=== PATIENT | male | born 1950 | race African-American/Black ===

== ENCOUNTER 2016-07-20 13:37 | Emergency (ER) | payer MEDICARE, OTHER ==
--- NOTE | 2016-07-20 13:52 | ER Document Report ---
ED Medical Screen (RME) - General Stated Complaint: DIFFICULTY BREATHING Time seen by provider: 13:52 Mode of Arrival: Wheelchair Information source: Patient Notes: 66-year-old male with a history of SD, hypertension, diabetes is complaining of dizziness, low blood pressure that he took at home, and chest pressure that started at 10 AM this morning. TRAVEL OUTSIDE OF THE [place] IN LAST 30 DAYS: No - Related Data Allergies/Adverse Reactions: No Known Allergies Allergy (Verified 07/20/16 13:53) Past Medical History - Past Medical History Cardiac Medical History: Reports: Hx Congestive Heart Failure, Hx Heart Attack, Hx Hypercholesterolemia, Hx Hypertension Pulmonary Medical History: Reports: Hx COPD Endocrine Medical History: Reports: Hx Diabetes Mellitus Type 2 Renal/ Medical History: Reports: Hx Kidney Stones, Hx Renal Insufficiency Psychiatric Medical History: Reports: Hx Depression Past Surgical History: Reports: Hx Cholecystectomy, Hx Tonsillectomy - Immunizations Hx Diphtheria, Pertussis, Tetanus Vaccination: Yes Physical Exam - Vital signs Vitals: Temp Pulse Resp BP Pulse Ox 98.1 F 82 16 142/85 H 94 07/20/16 13:43 07/20/16 13:43 07/20/16 13:43 07/20/16 13:43 07/20/16 13:43 Course - Vital Signs Vital signs: Temp Pulse Resp BP Pulse Ox 98.1 F 82 16 142/85 H 94 07/20/16 13:43 07/20/16 13:43 07/20/16 13:43 07/20/16 13:43 07/20/16 13:43
[2016-07-20] MEDS ORDERED: ASPIRIN 81 MG TABLET, CHEWABLE PO ONE (13:54)
[2016-07-20] MEDS ORDERED: ASPIRIN 81 MG TABLET, CHEWABLE ONE (13:56)
[2016-07-20 14:52] LABS: ABSOLUTE EOSINOPHILS # (AUTO) 0.2 10^3/uL (0.0-0.6); ABSOLUTE LYMPHOCYTES (AUTO) 1.6 10^3/uL (0.5-4.7); ABSOLUTE MONOCYTES (AUTO) 0.3 10^3/uL (0.1-1.4); BASOPHILS % (AUTO) 0.4 % (0-2); EOSINOPHILS % (AUTO) 4.2 % (0-6); HEMATOCRIT 45.4 % (37.9-51.0); HEMOGLOBIN 14.3 g/dL (13.5-17.0); HGB HCT DIFFERENCE -2.5; LYMPHOCYTES % (AUTO) 31.6 % (13-45); MEAN CORPUSCULAR HEMOGLOBIN 30.6 pg (27.0-33.4); MEAN CORPUSCULAR HGB CONC 31.6 g/dL (32.0-36.0); MEAN CORPUSCULAR VOLUME 97 fl (80-97); MONOCYTES % (AUTO) 5.3 % (3-13); RED BLOOD COUNT 4.67 10^6/uL (4.35-5.55); RED CELL DISTRIBUTION WIDTH 14.5 % (11.5-14.0); SEGMENTED NEUTROPHILS % (AUTO) 58.5 % (42-78); WHITE BLOOD COUNT 5.1 10^3/uL (4.0-10.5)
[2016-07-20 15:05] LABS: ALANINE AMINOTRANSFERASE 40 U/L (21-72); ALBUMIN 4.2 g/dL (3.5-5.0); ALKALINE PHOSPHATASE 76 U/L (38-126); ANION GAP 12 (5-19); ASPARTATE AMINO TRANSFERASE 38 U/L (17-59); BILIRUBIN,TOTAL 0.4 mg/dL (0.2-1.3); BLOOD UREA NITROGEN 21 mg/dL (7-20); CALCIUM 9.4 mg/dL (8.4-10.2); CARBON DIOXIDE 28 mmol/L (22-30); CHLORIDE 105 mmol/L (98-107); CREATINE KINASE 151 U/L (55-170); CREATININE RESULT 1.81 mg/dL (0.52-1.25); GLUCOSE 125 mg/dL (75-110); POTASSIUM 4.4 mmol/L (3.6-5.0); SODIUM 145.2 mmol/L (137-145); TOTAL PROTEIN 6.9 g/dL (6.3-8.2)
--- NOTE | 2016-07-20 15:07 | ER Document Report ---
ED General - General Chief Complaint: Chest Pain Stated Complaint: DIFFICULTY BREATHING Time seen by provider: 14:15 Mode of Arrival: Wheelchair Information source: Patient, [facility] Records Notes: This 66-year-old male patient comes over from complaining of onset 10 AM this morning while just sitting around getting ready to eat when he had chest pressure, shortness of breath, and felt dizzy. He states he checked his blood pressure and it was 100 systolic. At this time while I speak with him, his pulse is 78, his room air pulse ox is 95%, his blood pressure is 142/85. He is not tachypneic. He does have a history congestive heart failure with an EF of 20%, prior NC, diabetes, hypertension, chronic renal insufficiency and COPD. This is complicated by depression and morbid obesity. TRAVEL OUTSIDE OF THE [place] IN LAST 30 DAYS: No - Related Data Allergies/Adverse Reactions: No Known Allergies Allergy (Verified 07/20/16 13:53) Past Medical History - General Information source: Patient, [facility] Records - Social History Smoking Status: Never Smoker Cigarette use (# per day): No Chew tobacco use (# tins/day): No Smoking Education Provided: No Frequency of alcohol use: None Drug Abuse: None Occupation: retired Lives with: Alone Family History: Reviewed & Not Pertinent Patient has suicidal ideation: No Patient has homicidal ideation: No - Past Medical History Cardiac Medical History: Reports: Hx Congestive Heart Failure, Hx Heart Attack, Hx Hypercholesterolemia, Hx Hypertension Pulmonary Medical History: Reports: Hx COPD EENT Medical History: Reports: None Neurological Medical History: Reports: None Endocrine Medical History: Reports: Hx Diabetes Mellitus Type 2 Renal/ Medical History: Reports: Hx Kidney Stones, Hx Renal Insufficiency GI Medical History: Reports: Hx Gastroesophageal Reflux Disease Musculoskeltal Medical History: Reports None Skin Medical History: Reports None Psychiatric Medical History: Reports: Hx Depression Past Surgical History: Reports: Hx Abdominal Surgery - Ernestina fundoplication, Hx Cholecystectomy, Hx Tonsillectomy - Immunizations Hx Diphtheria, Pertussis, Tetanus Vaccination: Yes Hx Pneumococcal Vaccination: 06/30/12 Review of Systems - Review of Systems Constitutional: No symptoms reported EENT: No symptoms reported Cardiovascular: See HPI Respiratory: See HPI Gastrointestinal: No symptoms reported Genitourinary: No symptoms reported Musculoskeletal: No symptoms reported Skin: No symptoms reported Hematologic/Lymphatic: No symptoms reported Neurological/Psychological: No symptoms reported Physical Exam - Vital signs Vitals: Temp Pulse Resp BP Pulse Ox 98.1 F 82 16 142/85 H 94 07/20/16 13:43 07/20/16 13:43 07/20/16 13:43 07/20/16 13:43 07/20/16 13:43 Interpretation: Normal - General General appearance: Appears well, Alert In distress: None - HEENT Head: Normocephalic, Atraumatic Eyes: Normal Pupils: PERRL Pharynx: Normal Neck: Normal - Respiratory Respiratory status: No respiratory distress Breath sounds: Normal - Cardiovascular Rhythm: Regular Heart sounds: Normal auscultation Murmur: No - Abdominal Inspection: Morbidly Obese Bowel sounds: Normal Tenderness: Nontender - Back Back: Normal - Extremities General upper extremity: Normal inspection General lower extremity: Normal inspection. No: Edema - Neurological Neuro grossly intact: Yes - Psychological Associated symptoms: Normal affect, Normal mood - Skin Skin Temperature: Warm Skin Moisture: Dry Skin Color: Normal Course - Re-evaluation Re-evalutation: 07/20/16 16:06 The patient continues to feel well and is in no distress. His pulse ox remains in the 95-96% range on room air and he is not tachypneic. His pulse remains in the mid 70s. His blood pressure running 145/84. His BNP is only 98, his chest x-ray shows no heart failure or infiltrates. His EKG shows no acute changes. His troponin is undetectable. His chemistries and renal function are at his baseline, his CBC does not show suggestion of infection or anemia. I spoke with the patient at this point have no explanation for the symptoms and blood pressure findings he reported at home. He is cautioned to just take it easy and see how things go. He is to return immediately if his symptoms return. - Vital Signs Vital signs: Temp Pulse Resp BP Pulse Ox 98.1 F 82 22 H 136/79 H 94 07/20/16 13:43 07/20/16 13:43 07/20/16 15:31 07/20/16 15:31 07/20/16 15:31 - Laboratory Result Diagrams: 07/20/16 14:16 07/20/16 14:16 Laboratory results interpreted by me: 07/20/16 07/20/16 14:16 14:16 MCHC 31.6 L RDW 14.5 H Sodium 145.2 H BUN 21 H Creatinine 1.81 H Est GFR ( Amer) 45 L Est GFR (Non-Af Amer) 38 L Glucose 125 H - Diagnostic Test Radiology reviewed: Image reviewed, Reports reviewed - CXR--NAD - EKG Interpretation by Me EKG shows normal: Sinus rhythm, [place], Intervals, ST-T Waves. abnormal: QRS Complexes - Old inferior wall NC Rate: Normal - 82 Rhythm: PVC's [place]/QRS: IVCD Heart block present: 1st Degree When compared to previous EKG there are: No significant change Discharge - Discharge Clinical Impression: Chest tightness or pressure, Shortness of breath, Dizziness Condition: Stable Disposition: HOME, SELF-CARE Additional Instructions: Your vital signs, chest x-ray, EKG, and a blood work did not show any suggestion of infection, heart attack, or heart failure. There is no explanation found for the symptoms she experienced earlier this morning. You should continue to rest over the next few days. Continue her regular medications. Follow-up with your doctor this week for recheck. RETURN TO THE EMERGENCY ROOM IF ANY NEW OR WORSENING SYMPTOMS. Referrals: CALVIN PEDRAZA MD [Primary Care Provider] - Follow up as needed
[2016-07-20 15:17] LABS: CREATINE KINASE MB 1.48 ng/mL (<4.55)
[2016-07-20 15:18] LABS: TROPONIN I < 0.012 ng/mL
[2016-07-20 16:26] VITALS: BP 142/88
--- NOTE | 2016-07-20 16:38 | EKG REPORT ---
SEVERITY:- ABNORMAL ECG - SINUS RHYTHM MULTIPLE VENTRICULAR PREMATURE COMPLEXES FIRST DEGREE AV BLOCK NONSPECIFIC IVCD WITH LAD PROBABLE INFERIOR INFARCT, OLD CONSIDER ANTEROSEPTAL INFARCT : Confirmed by: Gary Pearson MD 20-Jul-2016 16:37:41
== END 2016-07-20 16:26 | disposition home or self-care (01) ==
LOC: ER 13:37
DX: R07.9 Chest pain, unspecified (principal); R06.02 Shortness of breath; R42 Dizziness and giddiness; I50.9 Heart failure, unspecified; E78.00 Pure hypercholesterolemia, unspecified; I10 Essential (primary) hypertension; J44.9 Chronic obstructive pulmonary disease, unspecified; E11.9 Type 2 diabetes mellitus without complications; K21.9 Gastro-esophageal reflux disease without esophagitis; Z87.442 Personal history of urinary calculi; Z90.49 Acquired absence of other specified parts of digestive tract; I25.2 Old myocardial infarction
CPT/HCPCS: 93005; 99285; 36415; 82553; 82550; 85025; 80053; 84484; 83880; 71010; 93010; A9270

== ENCOUNTER 2016-09-03 06:47 | Emergency (ER) | payer MEDICARE, OTHER ==
--- NOTE | 2016-09-03 07:04 | ER Document Report ---
ED General - General Mode of Arrival: Medic Information source: Patient TRAVEL OUTSIDE OF THE [place] IN LAST 30 DAYS: No - HPI Onset: This morning Onset/Duration: Sudden Quality of pain: No pain Associated symptoms: Other - see narrative <MARY STERLING - Last Filed: 09/03/16 07:11> <ADDI SUAREZ - Last Filed: 09/03/16 11:34> - General Stated Complaint: DIFFICULTY BREATHING Notes: Patient is a 66 year old male that presents to the emergency department today with complaints of generalized weakness, near-syncope, dizziness, and shortness of breath which began this morning upon wakening. Patient states when he went to bed last night he felt normal and his symptoms began this morning. Patient denies any chest pain. (MARY STERLING) - Related Data Allergies/Adverse Reactions: No Known Allergies Allergy (Verified 07/20/16 13:53) Past Medical History - General Information source: Patient, [facility] Records - Social History Smoking Status: Former Smoker Cigarette use (# per day): No Frequency of alcohol use: None Drug Abuse: None Lives with: Family Family History: Reviewed & Not Pertinent - Past Medical History Cardiac Medical History: Reports: Hx Congestive Heart Failure, Hx Heart Attack, Hx Hypercholesterolemia, Hx Hypertension Pulmonary Medical History: Reports: Hx COPD Endocrine Medical History: Reports: Hx Diabetes Mellitus Type 2 - IDDM Renal/ Medical History: Reports: Hx Kidney Stones, Hx Renal Insufficiency GI Medical History: Reports: Hx Gastroesophageal Reflux Disease Psychiatric Medical History: Reports: Hx Depression Past Surgical History: Reports: Hx Abdominal Surgery - Ernestina fundoplication, Hx Cholecystectomy, Hx Tonsillectomy - Immunizations Hx Diphtheria, Pertussis, Tetanus Vaccination: Yes Hx Pneumococcal Vaccination: 06/30/12 <MARY STERLING - Last Filed: 09/03/16 07:11> Review of Systems - Review of Systems Constitutional: See HPI, Weakness EENT: No symptoms reported Cardiovascular: See HPI, Syncope - near syncope, Dizziness Respiratory: See HPI, Short of breath Gastrointestinal: No symptoms reported Genitourinary: No symptoms reported Male Genitourinary: No symptoms reported Musculoskeletal: No symptoms reported Skin: No symptoms reported Hematologic/Lymphatic: No symptoms reported Neurological/Psychological: No symptoms reported -: Yes All other systems reviewed and negative <MARY STERLING - Last Filed: 09/03/16 07:11> Physical Exam - Vital signs Interpretation: Normal, Other - 98% on room air - General General appearance: Appears well, Alert In distress: None - HEENT Head: Normocephalic, Atraumatic Eyes: Normal Conjunctiva: Normal Extraocular movements intact: Yes - Respiratory Respiratory status: No respiratory distress Chest status: Nontender Breath sounds: Normal - Cardiovascular Rhythm: Regular Heart sounds: Normal auscultation Murmur: No - Abdominal Inspection: Normal Distension: No distension Bowel sounds: Normal - Extremities General upper extremity: Normal inspection, Normal ROM. No: Edema General lower extremity: Edema - trace edema bilaterally - Neurological Neuro grossly intact: Yes Cognition: Normal Speech: Normal - Psychological Associated symptoms: Normal affect, Normal mood - Skin Skin Temperature: Warm Skin Moisture: Dry Skin Color: Normal <MARY STERLING - Last Filed: 09/03/16 07:11> Course <MARY STERLING - Last Filed: 09/03/16 07:11> - Laboratory Result Diagrams: 09/03/16 07:25 09/03/16 07:25 - EKG Interpretation by Fl EKG shows normal: Sinus rhythm, [place], Intervals, QRS Complexes, ST-T Waves Rate: Normal - 65 Rhythm: NSR, PVC's [place]/QRS: IVCD Heart block present: 1st Degree <ADDI SUAREZ - Last Filed: 09/03/16 11:34> - Re-evaluation Re-evalutation: 09/03/16 11:27 The patient was seen here on 07/20/2016 complaining of shortness of breath, chest tightness or pressure, and dizziness. Workup at that time was essentially negative and he was discharged home to follow-up with his primary care provider. He states that no significant event occurred in the interim between that visit and today. Today he complains of weakness, dizziness and shortness of breath and again has a negative workup. (ADDI SUAREZ) - Vital Signs Vital signs: Temp Pulse Resp BP Pulse Ox 14 125/87 H 97 09/03/16 08:01 09/03/16 08:01 09/03/16 08:01 - Laboratory Laboratory results interpreted by ut: 09/03/16 09/03/16 07:25 07:25 RDW 14.3 H Creatinine 1.95 H Est GFR ( Amer) 42 L Est GFR (Non-Af Amer) 34 L Discharge <MARY STERLING - Last Filed: 09/03/16 07:11> <ADDI SUAREZ - Last Filed: 09/03/16 11:34> - Discharge Clinical Impression: Weakness, Dizziness Dyspnea Qualifiers: Dyspnea type: unspecified Qualified Code(s): R06.00 - Dyspnea, unspecified Condition: Stable Disposition: HOME, SELF-CARE Additional Instructions: There were no new or worrisome findings discovered on your lab work, physical examination, chest x-ray, and EKG today. There is no clear explanation for your symptoms. You should continue your regular medications. Follow-up with Dr. Gaines. RETURN TO THE EMERGENCY ROOM IF ANY NEW OR WORSENING SYMPTOMS. Referrals: CLAVIN GAINES MD [Primary Care Provider] - Follow up in 3-5 days Scribe Attestation: 09/03/16 11:33 I personally performed the services described in the documentation, reviewed and edited the documentation which was dictated to the scribe in my presence, and it accurately records my words and actions. (ADDI SUAREZ) Scribe Documentation - Scribe Written by Kt:: Kt Jacobs, 09/03/2016 0711 acting as scribe for :: Dione <MARY STERLING - Last Filed: 09/03/16 07:11>
[2016-09-03 07:41] LABS: ABSOLUTE EOSINOPHILS # (AUTO) 0.1 10^3/uL (0.0-0.6); ABSOLUTE LYMPHOCYTES (AUTO) 1.1 10^3/uL (0.5-4.7); ABSOLUTE MONOCYTES (AUTO) 0.4 10^3/uL (0.1-1.4); ABSOLUTE NEUT (AUTO) 5.3 10^3/uL (1.7-8.2); BASOPHILS % (AUTO) 0.1 % (0-2); EOSINOPHILS % (AUTO) 2.1 % (0-6); HEMATOCRIT 44.4 % (37.9-51.0); HEMOGLOBIN 14.7 g/dL (13.5-17.0); HGB HCT DIFFERENCE -0.3; LYMPHOCYTES % (AUTO) 15.6 % (13-45); MEAN CORPUSCULAR HEMOGLOBIN 31.8 pg (27.0-33.4); MEAN CORPUSCULAR HGB CONC 33.2 g/dL (32.0-36.0); MEAN CORPUSCULAR VOLUME 96 fl (80-97); MONOCYTES % (AUTO) 6.1 % (3-13); RED BLOOD COUNT 4.64 10^6/uL (4.35-5.55); RED CELL DISTRIBUTION WIDTH 14.3 % (11.5-14.0); SEGMENTED NEUTROPHILS % (AUTO) 76.1 % (42-78); WHITE BLOOD COUNT 6.9 10^3/uL (4.0-10.5)
[2016-09-03 08:03] LABS: ALANINE AMINOTRANSFERASE 36 U/L (21-72); ALBUMIN 4.1 g/dL (3.5-5.0); ALKALINE PHOSPHATASE 74 U/L (38-126); ANION GAP 14 (5-19); ASPARTATE AMINO TRANSFERASE 37 U/L (17-59); BILIRUBIN,TOTAL 0.3 mg/dL (0.2-1.3); BLOOD UREA NITROGEN 20 mg/dL (7-20); CALCIUM 9.5 mg/dL (8.4-10.2); CARBON DIOXIDE 29 mmol/L (22-30); CHLORIDE 99 mmol/L (98-107); CREATINE KINASE 168 U/L (55-170); CREATININE RESULT 1.95 mg/dL (0.52-1.25); GLUCOSE 104 mg/dL (75-110); POTASSIUM 4.3 mmol/L (3.6-5.0); TOTAL PROTEIN 7.1 g/dL (6.3-8.2)
[2016-09-03 08:15] LABS: CREATINE KINASE MB 1.71 ng/mL (<4.55)
[2016-09-03 08:17] LABS: TROPONIN I < 0.012 ng/mL
[2016-09-03 11:41] VITALS: BP 141/89
--- NOTE | 2016-09-04 09:34 | EKG REPORT ---
SEVERITY:- ABNORMAL ECG - SINUS RHYTHM VENTRICULAR TRIGEMINY FIRST DEGREE AV BLOCK NONSPECIFIC INTRAVENTRICULAR CONDUCTION DELAY : Confirmed by: Elizabeth Davis 04-Sep-2016 09:34:06
== END 2016-09-03 11:43 | disposition home or self-care (01) ==
LOC: ER 06:47
DX: J44.9 Chronic obstructive pulmonary disease, unspecified (principal); R06.02 Shortness of breath; R55 Syncope and collapse; R53.1 Weakness; R60.0 Localized edema; I25.2 Old myocardial infarction; I10 Essential (primary) hypertension; E11.9 Type 2 diabetes mellitus without complications; Z87.891 Personal history of nicotine dependence; I49.3 Ventricular premature depolarization; I44.0 Atrioventricular block, first degree
CPT/HCPCS: 36415; 71010; 80053; 82550; 82553; 82962; 84484; 85025; 93005; 93010; 99285

== ENCOUNTER → 2016-12-06 | Outpatient (CLI) | payer MEDICARE, OTHER ==
[2016-12-06 14:47] LABS: HEMATOCRIT 44.5 % (37.9-51.0); HEMOGLOBIN 14.5 g/dL (13.5-17.0); MEAN CORPUSCULAR HEMOGLOBIN 31.7 pg (27.0-33.4); MEAN CORPUSCULAR HGB CONC 32.6 g/dL (32.0-36.0); MEAN CORPUSCULAR VOLUME 97 fl (80-97); RED BLOOD COUNT 4.59 10^6/uL (4.35-5.55); RED CELL DISTRIBUTION WIDTH 14.8 % (11.5-14.0)
[2016-12-06 15:39] LABS: ANION GAP 13 (5-19); BLOOD UREA NITROGEN 20 mg/dL (7-20); CALCIUM 9.1 mg/dL (8.4-10.2); CARBON DIOXIDE 27 mmol/L (22-30); CHLORIDE 104 mmol/L (98-107); CREATININE RESULT 1.82 mg/dL (0.52-1.25); GLUCOSE 97 mg/dL (75-110); POTASSIUM 4.3 mmol/L (3.6-5.0); SODIUM 144.2 mmol/L (137-145)
== END ==
LOC: OD 14:20
PROVIDERS: ATTEND Internal Medicine Nephrology
DX: E11.22 Type 2 diabetes mellitus with diabetic chronic kidney disease (principal); I12.9 Hypertensive chronic kidney disease with stage 1 through stage 4 chronic kidney disease, or unspecified chronic kidney disease; N18.3 Chronic kidney disease, stage 3 (moderate); E87.5 Hyperkalemia
CPT/HCPCS: 36415; 80048; 85027

== ENCOUNTER 2017-01-02 21:18 | Emergency (ER) | payer MEDICARE, OTHER ==
[2017-01-02] MEDS ORDERED: ASPIRIN 81 MG TABLET, CHEWABLE PO ONE (21:41)
[2017-01-02 23:00] LABS: ABSOLUTE BASOPHILS # (AUTO) 0.1 10^3/uL (0.0-0.2); ABSOLUTE EOSINOPHILS # (AUTO) 0.4 10^3/uL (0.0-0.6); ABSOLUTE LYMPHOCYTES (AUTO) 2.1 10^3/uL (0.5-4.7); ABSOLUTE MONOCYTES (AUTO) 0.5 10^3/uL (0.1-1.4); ABSOLUTE NEUT (AUTO) 3.4 10^3/uL (1.7-8.2); BASOPHILS % (AUTO) 0.9 % (0-2); HEMATOCRIT 44.9 % (37.9-51.0); HEMOGLOBIN 14.3 g/dL (13.5-17.0); LYMPHOCYTES % (AUTO) 33.4 % (13-45); MEAN CORPUSCULAR HEMOGLOBIN 31.3 pg (27.0-33.4); MEAN CORPUSCULAR HGB CONC 31.9 g/dL (32.0-36.0); MEAN CORPUSCULAR VOLUME 98 fl (80-97); MONOCYTES % (AUTO) 7.3 % (3-13); RED BLOOD COUNT 4.57 10^6/uL (4.35-5.55); RED CELL DISTRIBUTION WIDTH 14.5 % (11.5-14.0); SEGMENTED NEUTROPHILS % (AUTO) 52.4 % (42-78); WHITE BLOOD COUNT 6.4 10^3/uL (4.0-10.5)
--- NOTE | 2017-01-02 23:18 | RADIOLOGY REPORT (SQ) ---
EXAM DESCRIPTION: CHEST SINGLE VIEW COMPLETED DATE/TIME: 01/02/2017 11:09 pm REASON FOR STUDY: chest pain COMPARISON: 07/01/2015 EXAM PARAMETERS: NUMBER OF VIEWS: One view. TECHNIQUE: Single frontal radiographic view of the chest acquired. RADIATION DOSE: NA LIMITATIONS: None. FINDINGS: LUNGS AND PLEURA: No opacities, masses or pneumothorax. No pleural effusion. MEDIASTINUM AND HILAR STRUCTURES: No masses. Contour normal. HEART AND VASCULAR STRUCTURES: Heart normal in size. Normal vasculature. BONES: No acute findings. HARDWARE: None in the chest. OTHER: No other significant finding. IMPRESSION: NO ACUTE RADIOGRAPHIC FINDING IN THE CHEST. TECHNICAL DOCUMENTATION: JOB ID: [id number]
[2017-01-02 23:23] LABS: CREATINE KINASE MB 1.69 ng/mL (<4.55); TROPONIN I 0.013 ng/mL
[2017-01-02 23:32] LABS: ALANINE AMINOTRANSFERASE 41 U/L (21-72); ALBUMIN 3.9 g/dL (3.5-5.0); ALKALINE PHOSPHATASE 81 U/L (38-126); ANION GAP 11 (5-19); ASPARTATE AMINO TRANSFERASE 34 U/L (17-59); BILIRUBIN,DIRECT 0.3 mg/dL (0.0-0.4); BILIRUBIN,TOTAL 0.4 mg/dL (0.2-1.3); BLOOD UREA NITROGEN 21 mg/dL (7-20); CARBON DIOXIDE 29 mmol/L (22-30); CHLORIDE 103 mmol/L (98-107); CREATINE KINASE 142 U/L (55-170); CREATININE RESULT 1.94 mg/dL (0.52-1.25); GLUCOSE 93 mg/dL (75-110); POTASSIUM 4.4 mmol/L (3.6-5.0); SODIUM 142.7 mmol/L (137-145); TOTAL PROTEIN 7.2 g/dL (6.3-8.2)
--- NOTE | 2017-01-03 00:29 | ER Document Report ---
ED General - General Chief Complaint: Chest Pain Stated Complaint: CHEST PAIN Time Seen by Provider: 01/03/17 00:25 Notes: Patient is a 66-year-old male who presents with complaint of episode of chest pain occurred while he was coughing. Says a pressure-like sensation that started in his chest while he was coughing. He says that he sucked on a piece of hard candy to help control the cough. When she cough went away his chest pain improved. He does not have a history of cardiac stents but says he did have a mild MT in the past. He does have history of congestive heart failure and is followed by his optimization consultant, Dr. Arreola, in [place], [place]. He says he did have a normal cardiac cath back in May. Last stress test was 2 years ago. He has no other complaints at this time. He is currently chest pain-free. TRAVEL OUTSIDE OF THE [place] IN LAST 30 DAYS: No - Related Data Allergies/Adverse Reactions: No Known Allergies Allergy (Verified 07/20/16 13:53) Past Medical History - Social History Smoking Status: Never Smoker Frequency of alcohol use: None Drug Abuse: None Family History: Reviewed & Not Pertinent Patient has suicidal ideation: No Patient has homicidal ideation: No - Past Medical History Cardiac Medical History: Reports: Hx Congestive Heart Failure, Hx Heart Attack, Hx Hypercholesterolemia, Hx Hypertension Pulmonary Medical History: Reports: Hx COPD Endocrine Medical History: Reports: Hx Diabetes Mellitus Type 2 - IDDM Renal/ Medical History: Reports: Hx Kidney Stones, Hx Renal Insufficiency. Denies: Hx Peritoneal Dialysis GI Medical History: Reports: Hx Gastroesophageal Reflux Disease Psychiatric Medical History: Reports: Hx Depression Past Surgical History: Reports: Hx Abdominal Surgery - Ernestina fundoplication, Hx Cholecystectomy, Hx Tonsillectomy - Immunizations Hx Diphtheria, Pertussis, Tetanus Vaccination: Yes Hx Pneumococcal Vaccination: 06/30/12 Review of Systems - Review of Systems Notes: My Normal Review Basic REVIEW OF SYSTEMS: CONSTITUTIONAL : Denies fever, chills, or sweats. Denies recent illness. EENT: Denies eye, ear, throat, or mouth pain or symptoms. Denies nasal or sinus congestion. CARDIOVASCULAR: Had chest pain, now resolved. RESPIRATORY: Denies cough, cold, or chest congestion. Denies shortness of breath, difficulty breathing, or wheezing. GASTROINTESTINAL: Denies abdominal pain. Denies nausea, vomiting, or diarrhea. MUSCULOSKELETAL: Denies neck or back pain or joint pain or swelling. SKIN: Denies rash or skin lesions. NEUROLOGICAL: Denies altered mental status or loss of consciousness. Denies headache. Denies weakness or paralysis or loss of use of either side. Denies problems with gait or speech. Denies sensory or motor loss. ALL OTHER SYSTEMS REVIEWED AND NEGATIVE. Physical Exam - Vital signs Vitals: Temp Pulse Resp BP Pulse Ox 98.2 F 65 20 142/76 H 96 01/02/17 21:37 01/02/17 21:37 01/02/17 21:37 01/02/17 21:37 01/02/17 21:37 - Notes Notes: General Appearance: Well nourished, alert, cooperative, no acute distress, no obvious discomfort. Well appearing. Vitals: reviewed, See vital signs table. Head: no swelling or tenderness to the head Eyes: PERRL, EOMI, Conjuctiva clear Mouth: No decreasd moisture Lungs: No wheezing, No rales, No rhonci, No accessory muscle use, good air exchange bilaterally. Heart: Normal rate, Regular rythm, No murmur, no rub Abdomen: Normal BS, soft, No rigidity, No abdominal tenderness, No guarding, no rebound, no abdominal masses, no organomegaly Extremities: strength 5/5 in all extremities, good pulses in all extremities, no swelling or tenderness in the extremities, no edema. Skin: warm, dry, appropriate color, no rash Neuro: speech clear, oriented x 3, normal affect, responds appropriately to questions. Course - Re-evaluation Re-evalutation: 01/04/17 00:16 Patient remains chest pain-free. His chest pain does not sound consistent with cardiac disease and that the chest pain seemed to be exacerbated by his coughing. His EKG is normal. His troponin and delta troponin are negative. I did discuss the case with his optimization consultant, Dr. Arreola, has no further recommendations and says patient to follow-up with him in his office. Patient is agreeable with plan. I informed the patient must return to ER immediately if he has any recurrence of chest pain or feels unwell or has difficulty breathing. Patient agrees with plan and will be discharged home. Dictation of this chart was performed using voice recognition software; therefore, there may be some unintended grammatical errors. - Vital Signs Vital signs: Temp Pulse Resp BP Pulse Ox 98.2 F 65 22 H 162/88 H 94 01/02/17 21:37 01/02/17 21:37 01/03/17 03:31 01/03/17 03:31 01/03/17 03:31 - Laboratory Result Diagrams: 01/02/17 22:25 01/02/17 22:25 Laboratory results interpreted by me: 01/02/17 01/02/17 22:25 22:25 MCV 98 H MCHC 31.9 L RDW 14.5 H BUN 21 H Creatinine 1.94 H Est GFR ( Amer) 42 L Est GFR (Non-Af Amer) 35 L - EKG Interpretation by Me Additional EKG results interpreted by me: 01/03/17 00:27 EKG is reviewed and interpreted by me. EKG shows normal sinus rhythm with rate of 69 bpm. Patient has no ST segment elevation or depression. No ischemic T- wave inversions. ID interval is prolonged. QRS duration and QTc intervals are within normal range. Old EKG for comparison is from September 03, 2016. Discharge - Discharge Clinical Impression: Chest pain Qualifiers: Chest pain type: unspecified Qualified Code(s): R07.9 - Chest pain, unspecified Condition: Good Disposition: HOME, SELF-CARE Additional Instructions: Please return to the ER immediately if you have any recurrent chest pain or difficulty breathing. I did discuss your case tonight with Dr. Arreola. Please call Dr. Arreola's office for a follow up appointment. Please continue to take your medications as prescribed. Referrals: CLAIR BROOKS MD [Primary Care Provider] - Follow up as needed
[2017-01-03 04:39] VITALS: BP 162/88
--- NOTE | 2017-01-03 08:13 | EKG REPORT ---
SEVERITY:- ABNORMAL ECG - SINUS RHYTHM FIRST DEGREE AV BLOCK CONSIDER ANTEROSEPTAL INFARCT BORDERLINE T WAVE ABNORMALITIES : Confirmed by: Gary Pearson MD 03-Jan-2017 08:13:21
== END 2017-01-03 04:25 | disposition home or self-care (01) ==
LOC: ER 21:18
DX: R07.9 Chest pain, unspecified (principal); R05 Cough
CPT/HCPCS: 36415; 71010; 80053; 82550; 82553; 84484; 85025; 93005; 93010; 99285

== ENCOUNTER → 2017-02-28 | Outpatient (CLI) | payer MEDICARE, OTHER ==
[2017-02-28 13:56] LABS: HEMATOCRIT 43.7 % (37.9-51.0); HEMOGLOBIN 14.7 g/dL (13.5-17.0); HGB HCT DIFFERENCE 0.4; MEAN CORPUSCULAR HEMOGLOBIN 32.6 pg (27.0-33.4); MEAN CORPUSCULAR HGB CONC 33.7 g/dL (32.0-36.0); MEAN CORPUSCULAR VOLUME 97 fl (80-97); RED BLOOD COUNT 4.52 10^6/uL (4.35-5.55); RED CELL DISTRIBUTION WIDTH 14.1 % (11.5-14.0); WHITE BLOOD COUNT 5.8 10^3/uL (4.0-10.5)
[2017-02-28 14:02] LABS: APPEARANCE,URINE CLEAR; BILIRUBIN,URINE NEGATIVE (NEGATIVE); GLUCOSE, URINE NEGATIVE (NEGATIVE); KETONES,URINE NEGATIVE (NEGATIVE); LEUKOCYTE ESTERASE,URINE NEGATIVE (NEGATIVE); NITRITE,URINE NEGATIVE (NEGATIVE); PROTEIN,URINE NEGATIVE (NEGATIVE); URINE SPECIFIC GRAVITY 1.018; UROBILINOGEN,URINE NEGATIVE mg/dL (<2.0)
[2017-02-28 14:27] LABS: ANION GAP 9 (5-19); BLOOD UREA NITROGEN 18 mg/dL (7-20); CALCIUM 9.4 mg/dL (8.4-10.2); CARBON DIOXIDE 29 mmol/L (22-30); CHLORIDE 104 mmol/L (98-107); CREATININE RESULT 1.96 mg/dL (0.52-1.25); GLUCOSE 111 mg/dL (75-110); POTASSIUM 4.6 mmol/L (3.6-5.0); SODIUM 142.3 mmol/L (137-145)
== END ==
LOC: OD 12:39
PROVIDERS: ATTEND Internal Medicine Nephrology
DX: E11.22 Type 2 diabetes mellitus with diabetic chronic kidney disease (principal); I12.9 Hypertensive chronic kidney disease with stage 1 through stage 4 chronic kidney disease, or unspecified chronic kidney disease; N18.3 Chronic kidney disease, stage 3 (moderate)
CPT/HCPCS: 36415; 80048; 81001; 85027

== ENCOUNTER 2017-03-28 15:28 | Emergency (ER) | payer OTHER, MEDICARE ==
[2017-03-28] MEDS ORDERED: ASPIRIN 81 MG TABLET, CHEWABLE PO ONE (19:06)
--- NOTE | 2017-03-28 19:24 | RADIOLOGY REPORT (SQ) ---
EXAM DESCRIPTION: CHEST SINGLE VIEW COMPLETED DATE/TIME: 03/28/2017 7:14 pm REASON FOR STUDY: chest pain COMPARISON: 01/02/2017 01/02/2017 EXAM PARAMETERS: NUMBER OF VIEWS: One view. TECHNIQUE: Single frontal radiographic view of the chest acquired. RADIATION DOSE: NA LIMITATIONS: None. FINDINGS: LUNGS AND PLEURA: No opacities, masses or pneumothorax. No pleural effusion. MEDIASTINUM AND HILAR STRUCTURES: No masses. Contour normal. HEART AND VASCULAR STRUCTURES: Heart stable in size. Normal vasculature. BONES: No acute findings. HARDWARE: Stable surgical device projects over the right hilum. OTHER: No other significant finding. IMPRESSION: NO ACUTE RADIOGRAPHIC FINDING IN THE CHEST. NO SIGNIFICANT CHANGE FROM PRIOR STUDY. TECHNICAL DOCUMENTATION: JOB ID: [id number]
[2017-03-28 19:26] LABS: ABSOLUTE BASOPHILS # (AUTO) 0.1 10^3/uL (0.0-0.2); ABSOLUTE EOSINOPHILS # (AUTO) 0.3 10^3/uL (0.0-0.6); ABSOLUTE MONOCYTES (AUTO) 0.5 10^3/uL (0.1-1.4); ABSOLUTE NEUT (AUTO) 3.2 10^3/uL (1.7-8.2); BASOPHILS % (AUTO) 0.9 % (0-2); EOSINOPHILS % (AUTO) 4.6 % (0-6); HEMATOCRIT 44.8 % (37.9-51.0); HEMOGLOBIN 15.1 g/dL (13.5-17.0); HGB HCT DIFFERENCE 0.5; LYMPHOCYTES % (AUTO) 33.5 % (13-45); MEAN CORPUSCULAR HEMOGLOBIN 32.5 pg (27.0-33.4); MEAN CORPUSCULAR HGB CONC 33.8 g/dL (32.0-36.0); MEAN CORPUSCULAR VOLUME 96 fl (80-97); MONOCYTES % (AUTO) 7.6 % (3-13); RED BLOOD COUNT 4.66 10^6/uL (4.35-5.55); RED CELL DISTRIBUTION WIDTH 14.3 % (11.5-14.0); SEGMENTED NEUTROPHILS % (AUTO) 53.4 % (42-78)
[2017-03-28 19:45] LABS: ANION GAP 9 (5-19); BLOOD UREA NITROGEN 20 mg/dL (7-20); CALCIUM 9.4 mg/dL (8.4-10.2); CARBON DIOXIDE 28 mmol/L (22-30); CHLORIDE 106 mmol/L (98-107); CREATININE RESULT 1.91 mg/dL (0.52-1.25); GLUCOSE 107 mg/dL (75-110); POTASSIUM 4.4 mmol/L (3.6-5.0); SODIUM 143.3 mmol/L (137-145)
[2017-03-28] MEDS ORDERED: MAG HYDROX/AL HYDROX/SIMETH SUSP 30 ML UDCUP PO ONE (20:32)
[2017-03-28] MEDS ORDERED: FAMOTIDINE 20 MG TABLET PO ONE (20:32)
[2017-03-28] MEDS ORDERED: METOCLOPRAMIDE HCL ORAL SOLN 10 MG/10 ML UDCUP PO ONE (20:32)
[2017-03-28] MEDS ORDERED: LIDOCAINE 2% VISCOUS SOLN 20 ML UDCUP PO ONE (20:32)
--- NOTE | 2017-03-28 20:38 | ER Document Report ---
ED General - General Chief Complaint: Chest Pain Stated Complaint: CHEST TIGHTNESS Time Seen by Provider: 03/28/17 19:04 Notes: Patient is a 66-year-old male with past medical history of chronic kidney disease, nonischemic cardia myopathy, who presents with chest pain. He describes it as a chest pressure in the central chest without any radiation of the pain. This pressure-like sensation has been constant since onset although he notes it is not present at time of presentation. Nothing improves or worsens the pain. He has had similar symptoms in the past but has no prior history of known coronary artery disease or NE. He did have a cardiac catheterization in May 2016 which was normal without any evidence of active coronary artery disease. He has not seen his primary care doctor regarding today's concerns. He denies any associated shortness of breath, nausea, vomiting or diaphoresis. TRAVEL OUTSIDE OF THE [place] IN LAST 30 DAYS: No - Related Data Allergies/Adverse Reactions: No Known Allergies Allergy (Verified 07/20/16 13:53) Past Medical History - General Information source: Patient - Social History Smoking Status: Never Smoker Frequency of alcohol use: None Drug Abuse: None Lives with: Family Family History: Reviewed & Not Pertinent - Past Medical History Cardiac Medical History: Reports: Hx Congestive Heart Failure, Hx Heart Attack, Hx Hypercholesterolemia, Hx Hypertension Pulmonary Medical History: Reports: Hx COPD Endocrine Medical History: Reports: Hx Diabetes Mellitus Type 2 - IDDM Renal/ Medical History: Reports: Hx Kidney Stones, Hx Renal Insufficiency. Denies: Hx Peritoneal Dialysis GI Medical History: Reports: Hx Gastroesophageal Reflux Disease Psychiatric Medical History: Reports: Hx Depression Past Surgical History: Reports: Hx Abdominal Surgery - Ernestina fundoplication, Hx Cardiac Surgery - cardioMEMS implanted, Hx Cholecystectomy, Hx Tonsillectomy - Immunizations Hx Diphtheria, Pertussis, Tetanus Vaccination: Yes Hx Pneumococcal Vaccination: 06/30/12 Review of Systems - Review of Systems Notes: Constitutional: Negative for fever. HENT: Negative for sore throat. Eyes: Negative for visual changes. Cardiovascular: Positive for chest pain. Respiratory: Negative for shortness of breath. Gastrointestinal: Negative for abdominal pain, vomiting or diarrhea. Genitourinary: Negative for dysuria. Musculoskeletal: Negative for back pain. Skin: Negative for rash. Neurological: Negative for headaches, weakness or numbness. 10 point ROS negative except as marked above and in HPI. Physical Exam - Vital signs Vitals: Temp Pulse Resp BP Pulse Ox 98.7 F 70 18 134/83 H 95 03/28/17 15:56 03/28/17 15:56 03/28/17 15:56 03/28/17 15:56 03/28/17 15:56 Interpretation: Normal Notes: PHYSICAL EXAMINATION: GENERAL: Well-appearing, well-nourished and in no acute distress. HEAD: Atraumatic, normocephalic. EYES: Pupils equal round and reactive to light, extraocular movements intact, sclera anicteric, conjunctiva are normal. ENT: nares patent, oropharynx clear without exudates. Moist mucous membranes. NECK: Normal range of motion, supple without lymphadenopathy LUNGS: Breath sounds clear to auscultation bilaterally and equal. No wheezes rales or rhonchi. HEART: Regular rate and rhythm without murmurs ABDOMEN: Soft, nontender, normoactive bowel sounds. No guarding, no rebound. No masses appreciated. EXTREMITIES: Normal range of motion, no pitting or edema. No cyanosis. NEUROLOGICAL: No focal neurological deficits. Moves all extremities spontaneously and on command. PSYCH: Normal mood, normal affect. SKIN: Warm, Dry, normal turgor, no rashes or lesions noted. Course - Re-evaluation Re-evalutation: 03/28/17 20:33 Presentation of chest pain in an otherwise well appearing patient. Low clinical suspicion for ACS given clinical history, exam, EKG without ST elevations or depressions, and negative initial troponin. PE also seems unlikely given clinical history, absence of tachycardia or dyspnea. Well's score is 0. CXR without evidence of pneumothorax or pneumonia. No widened mediastinum. Aortic dissection also seems unlikely given history, symmetric pulses, CXR, and vitals. Patient's clinical history seems to be much more consistent with likely upper intestinal irritation as he knows that he has felt gaseous and was like he needs to have a bowel movement or passed flatus and when he does so the pain seems to go away. He is pain-free at time of presentation. Will repeat a second troponin 3 hours from the initial if this remains normal plan for discharge home. Patient is agreeable to this 03/28/17 22:32 Second troponin remains normal. Patient remains chest pain-free. At this time will discharge with return precautions and follow-up recommendations. Verbal discharge instructions given a the bedside and opportunity for questions given. Medication warnings reviewed. Patient is in agreement with this plan and has verbalized understanding of return precautions and the need for primary care follow-up in the next 24-72 hours. - Vital Signs Vital signs: Temp Pulse Resp BP Pulse Ox 98.7 F 70 25 H 134/92 H 95 03/28/17 15:56 03/28/17 15:56 03/28/17 22:01 03/28/17 22:01 03/28/17 22:01 - Laboratory Result Diagrams: 03/28/17 18:05 03/28/17 18:05 Laboratory results interpreted by me: 03/28/17 03/28/17 18:05 18:05 RDW 14.3 H Creatinine 1.91 H Est GFR ( Amer) 43 L Est GFR (Non-Af Amer) 35 L - Diagnostic Test Radiology reviewed: Image reviewed, Reports reviewed Radiology results interpreted by me: 03/28/17 20:34 Chest x-ray: No acute infiltrate or pneumothorax - EKG Interpretation by Me Additional EKG results interpreted by me: 03/28/17 20:37 Sinus rhythm. Rate 75. No ST elevations or depressions. QTC is 465. Discharge - Discharge Clinical Impression: Chest pain Qualifiers: Chest pain type: unspecified Qualified Code(s): R07.9 - Chest pain, unspecified Chronic kidney disease Qualifiers: Chronic kidney disease stage: unspecified stage Qualified Code(s): N18.9 - Chronic kidney disease, unspecified Condition: Stable Disposition: HOME, SELF-CARE Additional Instructions: You were seen today for chest pain. The exact cause of your pain is unclear. However, based on your cardiac enzyme testing, chest x-ray, and EKG it does not appear that it is from an immediately life-threatening cause at this time. Although your testing here is normal is critical that you follow-up with your primary care physician for continued evaluation of this chest pain and possible stress testing. I recommended you see your physician within the next 24-48 hours to be evaluated for consideration of a stress test. Please return to emergency department immediately if you have worsening of your chest pain, shortness of breath, vomiting, become unable to exert yourself due to pain or difficulty breathing, you pass out, or have any pain that radiates into your arms, jaw, or back. Please also return if you have any additional symptoms that are concerning to you.
[2017-03-28 22:41] VITALS: BP 134/92
--- NOTE | 2017-03-29 00:12 | EKG REPORT ---
SEVERITY:- ABNORMAL ECG - SINUS RHYTHM FIRST DEGREE AV BLOCK BORDERLINE IVCD WITH LAD PROBABLE INFERIOR INFARCT, OLD : Confirmed by: Elizabeth Davis 29-Mar-2017 00:11:44
== END 2017-03-28 22:51 | disposition home or self-care (01) ==
LOC: ER 15:28
DX: R07.89 Other chest pain (principal); I12.9 Hypertensive chronic kidney disease with stage 1 through stage 4 chronic kidney disease, or unspecified chronic kidney disease; E11.22 Type 2 diabetes mellitus with diabetic chronic kidney disease; N18.9 Chronic kidney disease, unspecified; I25.2 Old myocardial infarction; J44.9 Chronic obstructive pulmonary disease, unspecified
CPT/HCPCS: 93005; 99285; 36415; 85025; 80048; 84484; 71010; 93010; J3490

== ENCOUNTER 2017-04-12 00:11 | Emergency (ER) | payer MEDICARE, OTHER ==
[2017-04-12 00:19] VITALS: BP 143/90
== END 2017-04-12 02:53 | disposition left against medical advice (07) ==
LOC: ER 00:11
DX: Z53.21 Procedure and treatment not carried out due to patient leaving prior to being seen by health care provider (principal)
CPT/HCPCS: 82962

== ENCOUNTER 2017-04-12 22:57 | Emergency (ER) | payer MEDICARE, OTHER ==
[2017-04-12] MEDS ORDERED: ASPIRIN 81 MG TABLET, CHEWABLE PO ONE (23:03)
--- NOTE | 2017-04-13 00:04 | RADIOLOGY REPORT (SQ) ---
EXAM DESCRIPTION: CHEST SINGLE VIEW COMPLETED DATE/TIME: 04/12/2017 11:56 pm REASON FOR STUDY: cp COMPARISON: 03/28/2017 EXAM PARAMETERS: NUMBER OF VIEWS: One view. TECHNIQUE: Single frontal radiographic view of the chest acquired. RADIATION DOSE: NA LIMITATIONS: None. FINDINGS: LUNGS AND PLEURA: No opacities, masses or pneumothorax. No pleural effusion. MEDIASTINUM AND HILAR STRUCTURES: No masses. Contour normal. HEART AND VASCULAR STRUCTURES: Heart normal in size. Normal vasculature. BONES: No acute findings. HARDWARE: Surgical device projects over the right hilum. Surgical clips are seen in the region of th e gastroesophageal junction. OTHER: No other significant finding. IMPRESSION: NO ACUTE RADIOGRAPHIC FINDING IN THE CHEST. TECHNICAL DOCUMENTATION: JOB ID: [id number]
[2017-04-13 00:32] LABS: ABSOLUTE EOSINOPHILS # (AUTO) 0.3 10^3/uL (0.0-0.6); ABSOLUTE LYMPHOCYTES (AUTO) 1.8 10^3/uL (0.5-4.7); ABSOLUTE MONOCYTES (AUTO) 0.4 10^3/uL (0.1-1.4); ABSOLUTE NEUT (AUTO) 4.2 10^3/uL (1.7-8.2); BASOPHILS % (AUTO) 0.5 % (0-2); EOSINOPHILS % (AUTO) 4.7 % (0-6); HEMATOCRIT 44.2 % (37.9-51.0); HEMOGLOBIN 15.2 g/dL (13.5-17.0); HGB HCT DIFFERENCE 1.4; LYMPHOCYTES % (AUTO) 27.1 % (13-45); MEAN CORPUSCULAR HGB CONC 34.4 g/dL (32.0-36.0); MEAN CORPUSCULAR VOLUME 96 fl (80-97); MONOCYTES % (AUTO) 6.6 % (3-13); RED CELL DISTRIBUTION WIDTH 14.4 % (11.5-14.0); SEGMENTED NEUTROPHILS % (AUTO) 61.1 % (42-78); WHITE BLOOD COUNT 6.8 10^3/uL (4.0-10.5)
[2017-04-13 01:52] LABS: CREATINE KINASE 204 U/L (55-170)
--- NOTE | 2017-04-13 01:52 | ER Document Report ---
ED General - General Chief Complaint: Chest Pain Stated Complaint: CHEST PRESSURE Time Seen by Provider: 04/12/17 23:51 TRAVEL OUTSIDE OF THE [place] IN LAST 30 DAYS: No - Related Data Allergies/Adverse Reactions: No Known Allergies Allergy (Verified 04/12/17 00:15) Past Medical History - Social History Family History: Reviewed & Not Pertinent Patient has suicidal ideation: No Patient has homicidal ideation: No - Past Medical History Cardiac Medical History: Reports: Hx Congestive Heart Failure, Hx Heart Attack, Hx Hypercholesterolemia, Hx Hypertension Pulmonary Medical History: Reports: Hx COPD Endocrine Medical History: Reports: Hx Diabetes Mellitus Type 2 - IDDM Renal/ Medical History: Reports: Hx Kidney Stones, Hx Renal Insufficiency. Denies: Hx Peritoneal Dialysis GI Medical History: Reports: Hx Gastroesophageal Reflux Disease Psychiatric Medical History: Reports: Hx Depression Past Surgical History: Reports: Hx Abdominal Surgery - Ernestina fundoplication, Hx Cardiac Surgery - cardioMEMS implanted, Hx Cholecystectomy, Hx Tonsillectomy - Immunizations Hx Diphtheria, Pertussis, Tetanus Vaccination: Yes Hx Pneumococcal Vaccination: 06/30/12 Physical Exam - Vital signs Vitals: Temp Pulse Resp BP Pulse Ox 98.5 F 69 16 145/85 H 94 04/12/17 23:06 04/12/17 23:06 04/12/17 23:06 04/12/17 23:06 04/12/17 23:06 Course - Re-evaluation Re-evalutation: 04/13/17 01:52 Presentation of chest pain in an otherwise well appearing patient. Low clinical suspicion for ACS given clinical history, exam, EKG without ST elevations or depressions, and negative initial troponin. HEART score less than or equal to 3. PE also seems unlikely given clinical history, absence of tachycardia or dyspnea. Patient is PERC criteria negative. CXR without evidence of pneumothorax or pneumonia. No widened mediastinum. Aortic dissection also seems unlikely given history, symmetric pulses, CXR, and vitals. HEART Score: History ECG Age Risk Factors Troponin Total: Chest pain in a patient without evidence of cardiac or other serious etiology on workup today. I discussed with patient that, based on their age, risk factors and emergency department testing today, the likelihood that their symptoms are related to a heart attack is very low (estimated risk of heart attack or over the next 30 days of less than 1%). The patient demonstrates decision making capacity and has verbalized an understanding of these risks to me. Based on this, the patient has chosen to follow-up as an outpatient. Usual chest pain return precautions reviewed. The patient states understanding and agreement with this plan. - Vital Signs Vital signs: Temp Pulse Resp BP Pulse Ox 98.5 F 69 16 145/85 H 94 04/12/17 23:06 04/12/17 23:06 04/12/17 23:06 04/12/17 23:06 04/12/17 23:06 - Laboratory Result Diagrams: 04/13/17 00:11 04/13/17 00:11 Laboratory results interpreted by me: 04/13/17 00:11 RDW 14.4 H
--- NOTE | 2017-04-13 01:54 | ER Document Report ---
ED General - General Chief Complaint: Chest Pain Stated Complaint: CHEST PRESSURE Time Seen by Provider: 04/12/17 23:51 Notes: Patient is a 66-year-old male who presents with intermittent chest pain that is chronic in nature. Nothing is new or different today. Describes the pain is intermittent left-sided chest pain that comes for 15-20 minutes and then spontaneously resolves. Denies any associated nausea, vomiting, shortness of breath, or syncope. He denies any pain at this time. He is going to follow-up with his critical care clinical nurse specialist in the next 10 days regarding his intermittent chest pain. He had a cardiac catheterization in May 2016 it was noted to be normal. TRAVEL OUTSIDE OF THE [place] IN LAST 30 DAYS: No - Related Data Allergies/Adverse Reactions: No Known Allergies Allergy (Verified 04/12/17 00:15) Past Medical History - General Information source: Patient - Social History Smoking Status: Never Smoker Frequency of alcohol use: None Drug Abuse: None Family History: Reviewed & Not Pertinent Patient has suicidal ideation: No Patient has homicidal ideation: No - Past Medical History Cardiac Medical History: Reports: Hx Congestive Heart Failure, Hx Heart Attack, Hx Hypercholesterolemia, Hx Hypertension Pulmonary Medical History: Reports: Hx COPD Endocrine Medical History: Reports: Hx Diabetes Mellitus Type 2 - IDDM Renal/ Medical History: Reports: Hx Kidney Stones, Hx Renal Insufficiency. Denies: Hx Peritoneal Dialysis GI Medical History: Reports: Hx Gastroesophageal Reflux Disease Psychiatric Medical History: Reports: Hx Depression Past Surgical History: Reports: Hx Abdominal Surgery - Ernestina fundoplication, Hx Cardiac Surgery - cardioMEMS implanted, Hx Cholecystectomy, Hx Tonsillectomy - Immunizations Hx Diphtheria, Pertussis, Tetanus Vaccination: Yes Hx Pneumococcal Vaccination: 06/30/12 Review of Systems - Review of Systems Notes: Constitutional: Negative for fever. HENT: Negative for sore throat. Eyes: Negative for visual changes. Cardiovascular: Positive for chest pain. Respiratory: Negative for shortness of breath. Gastrointestinal: Negative for abdominal pain, vomiting or diarrhea. Genitourinary: Negative for dysuria. Musculoskeletal: Negative for back pain. Skin: Negative for rash. Neurological: Negative for headaches, weakness or numbness. 10 point ROS negative except as marked above and in HPI. Physical Exam - Vital signs Vitals: Temp Pulse Resp BP Pulse Ox 98.5 F 69 16 145/85 H 94 04/12/17 23:06 04/12/17 23:06 04/12/17 23:06 04/12/17 23:06 04/12/17 23:06 Interpretation: Hypertensive Notes: PHYSICAL EXAMINATION: GENERAL: Well-appearing, well-nourished and in no acute distress. HEAD: Atraumatic, normocephalic. EYES: Pupils equal round and reactive to light, extraocular movements intact, sclera anicteric, conjunctiva are normal. ENT: nares patent, oropharynx clear without exudates. Moist mucous membranes. NECK: Normal range of motion, supple without lymphadenopathy LUNGS: Breath sounds clear to auscultation bilaterally and equal. No wheezes rales or rhonchi. HEART: Regular rate and rhythm without murmurs ABDOMEN: Soft, nontender, normoactive bowel sounds. No guarding, no rebound. No masses appreciated. EXTREMITIES: Normal range of motion, no pitting or edema. No cyanosis. NEUROLOGICAL: No focal neurological deficits. Moves all extremities spontaneously and on command. PSYCH: Normal mood, normal affect. SKIN: Warm, Dry, normal turgor, no rashes or lesions noted. Course - Re-evaluation Re-evalutation: 04/13/17 01:53 Presentation of chest pain in an otherwise well appearing patient. Low clinical suspicion for ACS given clinical history, exam, EKG without ST elevations or depressions, and negative initial troponin. PE also seems unlikely given clinical history, absence of tachycardia or dyspnea. Well's score is 0. CXR without evidence of pneumothorax or pneumonia. No widened mediastinum. Aortic dissection also seems unlikely given history, symmetric pulses, CXR, and vitals. Patient's clinical history seems to be much more consistent with likely upper intestinal irritation as he knows that he has felt gaseous and was like he needs to have a bowel movement or passed flatus and when he does so the pain seems to go away. He is pain-free at time of presentation. Will repeat a second troponin 3 hours from the initial if this remains normal plan for discharge home. Patient is agreeable to this and his follow-up with his critical care clinical nurse specialist in the next 10 days for a stress test. 04/13/17 04:38 Second troponin remains normal. Patient did have some mild upper abdominal pain which has resolved after GI cocktail. He remains without any chest pain, shortness of breath, diaphoresis or vomiting. At this time will discharge with return precautions and follow-up recommendations. Verbal discharge instructions given a the bedside and opportunity for questions given. Medication warnings reviewed. Patient is in agreement with this plan and has verbalized understanding of return precautions and the need for primary care follow-up in the next 24-72 hours. - Vital Signs Vital signs: Temp Pulse Resp BP Pulse Ox 98.5 F 69 13 134/78 H 93 04/12/17 23:06 04/12/17 23:06 04/13/17 04:02 04/13/17 04:02 04/13/17 04:02 - Laboratory Result Diagrams: 04/13/17 00:11 04/13/17 01:23 Laboratory results interpreted by me: 04/13/17 04/13/17 00:11 01:23 RDW 14.4 H BUN 24 H Creatinine 1.82 H Est GFR ( Amer) 45 L Est GFR (Non-Af Amer) 37 L Creatine Kinase 204 H - Diagnostic Test Radiology reviewed: Image reviewed, Reports reviewed Radiology results interpreted by me: 04/13/17 01:54 Chest x-ray: No acute infiltrate or pneumothorax - EKG Interpretation by Me Additional EKG results interpreted by me: 04/13/17 01:54 Sinus rhythm. Rate 66. No ST elevations or depressions. First-degree AV block present. PVCs. Unchanged from prior. Discharge - Discharge Clinical Impression: Chest pain Qualifiers: Chest pain type: unspecified Qualified Code(s): R07.9 - Chest pain, unspecified Condition: Good Disposition: HOME, SELF-CARE Additional Instructions: You were seen today for chest pain. The exact cause of your pain is unclear. However, based on your cardiac enzyme testing, chest x-ray, and EKG it does not appear that it is from an immediately life-threatening cause at this time. Although your testing here is normal is critical that you follow-up with your primary care physician for continued evaluation of this chest pain and possible stress testing. I recommended you see your physician within the next 24-48 hours to be evaluated for consideration of a stress test. Please return to emergency department immediately if you have worsening of your chest pain, shortness of breath, vomiting, become unable to exert yourself due to pain or difficulty breathing, you pass out, or have any pain that radiates into your arms, jaw, or back. Please also return if you have any additional symptoms that are concerning to you.
[2017-04-13 02:04] LABS: CREATINE KINASE MB 2.08 ng/mL (<4.55); TROPONIN I 0.015 ng/mL
[2017-04-13 02:28] LABS: ALANINE AMINOTRANSFERASE 44 U/L (21-72); ALKALINE PHOSPHATASE 70 U/L (38-126); ANION GAP 13 (5-19); ASPARTATE AMINO TRANSFERASE 55 U/L (17-59); BILIRUBIN,DIRECT 0.4 mg/dL (0.0-0.4); BILIRUBIN,TOTAL 0.4 mg/dL (0.2-1.3); BLOOD UREA NITROGEN 24 mg/dL (7-20); CALCIUM 9.6 mg/dL (8.4-10.2); CARBON DIOXIDE 27 mmol/L (22-30); CHLORIDE 103 mmol/L (98-107); CREATININE RESULT 1.82 mg/dL (0.52-1.25); GLUCOSE 93 mg/dL (75-110); POTASSIUM 4.1 mmol/L (3.6-5.0); SODIUM 142.8 mmol/L (137-145); TOTAL PROTEIN 7.1 g/dL (6.3-8.2)
[2017-04-13] MEDS ORDERED: MAG HYDROX/AL HYDROX/SIMETH SUSP 30 ML UDCUP PO ONE (04:31)
[2017-04-13] MEDS ORDERED: LIDOCAINE 2% VISCOUS SOLN 20 ML UDCUP PO ONE (04:31)
[2017-04-13] MEDS ORDERED: METOCLOPRAMIDE HCL ORAL SOLN 10 MG/10 ML UDCUP PO ONE (04:31)
[2017-04-13 04:54] VITALS: BP 134/78
--- NOTE | 2017-04-13 07:58 | EKG REPORT ---
SEVERITY:- ABNORMAL ECG - SINUS RHYTHM VENTRICULAR PREMATURE COMPLEX FIRST DEGREE AV BLOCK NONSPECIFIC INTRAVENTRICULAR CONDUCTION DELAY PROBABLE INFERIOR INFARCT, AGE INDETERMINATE CONSIDER OLD ANTERIOR PR : Confirmed by: Gary Pearson MD 13-Apr-2017 07:57:35
== END 2017-04-13 04:54 | disposition home or self-care (01) ==
LOC: ER 22:57
DX: R07.89 Other chest pain (principal); G89.29 Other chronic pain; I44.0 Atrioventricular block, first degree; R14.3 Flatulence; I25.2 Old myocardial infarction; I10 Essential (primary) hypertension; J44.9 Chronic obstructive pulmonary disease, unspecified; E11.9 Type 2 diabetes mellitus without complications; R10.10 Upper abdominal pain, unspecified
CPT/HCPCS: 93005; 99285; 36415; 82553; 82550; 85025; 80053; 84484; 71010; 93010; J3490; A9270

== ENCOUNTER → 2017-06-05 | Outpatient (CLI) | payer MEDICARE, OTHER ==
[2017-06-05 13:10] LABS: HEMOGLOBIN 14.9 g/dL (13.5-17.0); HGB HCT DIFFERENCE -0.3; MEAN CORPUSCULAR HEMOGLOBIN 32.4 pg (27.0-33.4); MEAN CORPUSCULAR HGB CONC 33.2 g/dL (32.0-36.0); MEAN CORPUSCULAR VOLUME 98 fl (80-97); RED BLOOD COUNT 4.61 10^6/uL (4.35-5.55); RED CELL DISTRIBUTION WIDTH 14.4 % (11.5-14.0); WHITE BLOOD COUNT 6.2 10^3/uL (4.0-10.5)
[2017-06-05 13:30] LABS: ANION GAP 13 (5-19); BLOOD UREA NITROGEN 22 mg/dL (7-20); CALCIUM 9.7 mg/dL (8.4-10.2); CARBON DIOXIDE 32 mmol/L (22-30); CHLORIDE 101 mmol/L (98-107); CREATININE RESULT 2.05 mg/dL (0.52-1.25); GLUCOSE 106 mg/dL (75-110); POTASSIUM 4.7 mmol/L (3.6-5.0); SODIUM 145.5 mmol/L (137-145)
[2017-06-05 19:14] LABS: APPEARANCE,URINE CLEAR; BILIRUBIN,URINE NEGATIVE (NEGATIVE); GLUCOSE, URINE NEGATIVE (NEGATIVE); KETONES,URINE NEGATIVE (NEGATIVE); LEUKOCYTE ESTERASE,URINE NEGATIVE (NEGATIVE); NITRITE,URINE NEGATIVE (NEGATIVE); PROTEIN,URINE NEGATIVE (NEGATIVE); UROBILINOGEN,URINE NEGATIVE mg/dL (<2.0)
[2017-06-07 09:38] LABS: CREATININE URINE 225.3 mg/dL (Not Estab.); MICROALBUMIN URINE 66.5 ug/mL (Not Estab.)
== END ==
LOC: OD 11:45
PROVIDERS: ATTEND Physician Assistant Medical
DX: I12.9 Hypertensive chronic kidney disease with stage 1 through stage 4 chronic kidney disease, or unspecified chronic kidney disease (principal); N18.3 Chronic kidney disease, stage 3 (moderate); R80.9 Proteinuria, unspecified; E11.9 Type 2 diabetes mellitus without complications
CPT/HCPCS: 36415; 80048; 81001; 82043; 82570; 85027

== ENCOUNTER → 2017-12-16 | Outpatient (CLI) | payer MEDICARE, OTHER ==
[2017-12-16 11:30] LABS: HEMATOCRIT 45.5 % (37.9-51.0); HEMOGLOBIN 15.1 g/dL (13.5-17.0); MEAN CORPUSCULAR HGB CONC 33.3 g/dL (32.0-36.0); MEAN CORPUSCULAR VOLUME 96 fl (80-97); PLATELET COUNT 210 10^3/uL (150-450); RED BLOOD COUNT 4.73 10^6/uL (4.35-5.55); RED CELL DISTRIBUTION WIDTH 14.1 % (11.5-14.0)
[2017-12-16 11:35] LABS: APPEARANCE,URINE CLEAR; BILIRUBIN,URINE NEGATIVE (NEGATIVE); COLOR,URINE YELLOW; GLUCOSE, URINE NEGATIVE (NEGATIVE); KETONES,URINE NEGATIVE (NEGATIVE); LEUKOCYTE ESTERASE,URINE NEGATIVE (NEGATIVE); NITRITE,URINE NEGATIVE (NEGATIVE); PROTEIN,URINE 100 mg/dL (NEGATIVE); UROBILINOGEN,URINE NEGATIVE mg/dL (<2.0)
[2017-12-16 11:52] LABS: ANION GAP 13 (5-19); BLOOD UREA NITROGEN 15 mg/dL (7-20); CALCIUM 9.7 mg/dL (8.4-10.2); CARBON DIOXIDE 31 mmol/L (22-30); CHLORIDE 103 mmol/L (98-107); GLUCOSE 110 mg/dL (75-110); SODIUM 146.9 mmol/L (137-145)
== END ==
LOC: OD 10:38
PROVIDERS: ATTEND Physician Assistant Medical
DX: E11.22 Type 2 diabetes mellitus with diabetic chronic kidney disease (principal); I12.9 Hypertensive chronic kidney disease with stage 1 through stage 4 chronic kidney disease, or unspecified chronic kidney disease; N18.3 Chronic kidney disease, stage 3 (moderate); R80.9 Proteinuria, unspecified
CPT/HCPCS: 36415; 80048; 81001; 83970; 84100; 85027

== ENCOUNTER 2018-01-04 01:27 | Emergency (ER) | payer MEDICARE, OTHER ==
[2018-01-04] MEDS ORDERED: KETOROLAC TROMETHAMINE INJ/PF 30 MG/1 ML SDV IV ONE (01:54)
--- NOTE | 2018-01-04 01:59 | ER Document Report ---
ED General - General Stated Complaint: BACK PAIN Time Seen by Provider: 01/04/18 01:37 TRAVEL OUTSIDE OF THE [place] IN LAST 30 DAYS: No - HPI Notes: Patient is a 59-year-old male with a history of hypertension, type 2 diabetes, anxiety/depression, chronic LBP who presents to the ED complaining of acute on chronic low back pain. Patient states that he has had more noticeable back pain over the last 3 months that increased over the last 2 days with occ radiation around his right side. Patient states that twisting and movements make his back pain worse. He is still eating and drinking without any difficulties. He is urinating normally and having normal bowel movements; although, he reports having issues with constipation. Last BM yesterday. Patient states that he does not have any abdominal pain but rather a tightness that is generalized. He denies any drug allergies. Denies any headache, fever , neck pain, URI, sore throat, chest pain, palpitations, syncope, cough, shortness of breath, wheeze, dyspnea, abdominal pain, nausea/vomiting/diarrhea, urinary retention, dysuria, hematuria, loss of control of bowel or bladder, numbness/tingling, saddle anesthesia, muscle paralysis/weakness, or rash. - Related Data Allergies/Adverse Reactions: No Known Allergies Allergy (Verified 04/12/17 00:15) Past Medical History - Social History Smoking Status: Never Smoker Family History: Reviewed & Not Pertinent - Past Medical History Cardiac Medical History: Reports: Hx Congestive Heart Failure, Hx Heart Attack, Hx Hypercholesterolemia, Hx Hypertension Pulmonary Medical History: Reports: Hx COPD Endocrine Medical History: Reports: Hx Diabetes Mellitus Type 2 - IDDM Renal/ Medical History: Reports: Hx Kidney Stones, Hx Renal Insufficiency. Denies: Hx Peritoneal Dialysis GI Medical History: Reports: Hx Gastroesophageal Reflux Disease Psychiatric Medical History: Reports: Hx Depression Past Surgical History: Reports: Hx Abdominal Surgery - Ernestina fundoplication, Hx Cardiac Surgery - cardioMEMS implanted, Hx Cholecystectomy, Hx Tonsillectomy - Immunizations Hx Diphtheria, Pertussis, Tetanus Vaccination: Yes Hx Pneumococcal Vaccination: 06/30/12 Review of Systems - Review of Systems -: Yes All other systems reviewed and negative Physical Exam - Vital signs Vitals: Temp Pulse Resp BP Pulse Ox 98.6 F 73 18 152/82 H 95 01/04/18 01:36 01/04/18 01:36 01/04/18 01:36 01/04/18 01:36 01/04/18 01:36 - Notes Notes: PHYSICAL EXAMINATION: GENERAL: Well-appearing, well-nourished and in no acute distress. LUNGS: Breath sounds clear to auscultation bilaterally and equal. No wheezes rales or rhonchi. HEART: Regular rate and rhythm without murmurs, rubs, gallops. ABDOMEN: Soft, nontender, nondistended abdomen. No guarding, no rebound. Normal bowel sounds present. No CVA tenderness bilaterally. No obvious pulsatile mass, but pt is obese. Musculoskeletal: LE's b/l: FROM to passive/active. Strength 5+/5. No deficits noted. No bony tenderness of extremities. Back: FROM to passive/active. Strength 5+/5. No vertebral point tenderness, stepoffs, or deformities. No other bony tenderness, erythema, swelling, or ecchymosis. SLR negative b/l. No SI jt tenderness. No foot drop Extremities: No cyanosis, clubbing, or edema b/l. Peripheral pulses 2+. Capillary refill less than 2 seconds. NEUROLOGICAL: Normal speech, normal gait. Normal sensory, motor exams. Reflexes 2+ b/l. PSYCH: Normal mood, normal affect. SKIN: Warm, Dry, normal turgor, no rashes or lesions noted. Course - Re-evaluation Re-evalutation: 01/04/18 05:40 Patient is an afebrile, well-hydrated, 67-year-old male who presents to the ED with acute on chronic low back pain and constipation. Vitals are acceptable. PE is otherwise unremarkable for any focal neurological deficits. CT abd/pelv unremarkable for acute pathology. Patient was given Toradol. Pt is feeling better. He has no significant tachycardia, tachypnea, or hypoxia. He is nontoxic-appearing and is tolerating p.o. without difficulties. There are no signs of infection. No other red flag symptoms noted. No other labs or imaging warranted at this time based on H&P. Low suspicion for any acute abdomen, meningitis, fracture, expanding/ruptured AAA, cauda equina syndrome, epidural mass lesion/abscess, herniated disc causing severe spinal stenosis, or other systemic infection at this time. Patient is aware that his condition can change from initial presentation and that he needs monitor symptoms closely for any acute changes. I will send him home with a prescription for mag citrate, baclofen. Conservative measures otherwise for symptoms. Recheck with your PCM in 2-3 days. Consider consult with GI/orthopedic/physical therapy. Return to the ED with any worsening/concerning symptoms otherwise as reviewed discharge. Patient is in agreement. - Vital Signs Vital signs: Temp Pulse Resp BP Pulse Ox 98.6 F 73 18 152/82 H 95 01/04/18 01:36 01/04/18 01:36 01/04/18 01:36 01/04/18 01:36 01/04/18 01:36 - Laboratory Result Diagrams: 01/04/18 02:30 01/04/18 04:34 Laboratory results interpreted by me: 01/04/18 01/04/18 01/04/18 02:30 02:44 04:34 RDW 14.2 H Sodium 147.0 H Carbon Dioxide 32 H Creatinine 1.71 H Est GFR ( Amer) 48 L Est GFR (Non-Af Amer) 40 L Urine Protein 30 H Discharge - Discharge Clinical Impression: Low back pain Qualifiers: Chronicity: acute Back pain laterality: bilateral Sciatica presence: without sciatica Qualified Code(s): M54.5 - Low back pain Constipation Qualifiers: Constipation type: unspecified constipation type Qualified Code(s): K59.00 - Constipation, unspecified Condition: Stable Disposition: HOME, SELF-CARE Instructions: Constipation ([facility]), Low Back Pain ([facility]), Muscle Relaxers ([facility]), Stretching Exercises for the Back ([facility]) Additional Instructions: Rest, Ice Tylenol/ibuprofen as needed Light stretches daily Strength exercises as able Moist heat and massage may help F/u with your PCP in 2-3 days for a recheck Consider consult(s) with Orthopedics/physical therapy for ongoing/worsening symptoms Return to the ED with any worsening symptoms and/or development of fever, headache, chest pain, palpitations, syncope, shortness of breath, trouble breathing, abdominal pain, n/v/d, blood in stool/urine, loss of control of bowel /bladder, urinary retention, muscle weakness/paralysis, saddle anesthesia, numbness/tingling, or other worsening symptoms that are concerning to you. Prescriptions: Baclofen [Baclofen 10 mg Tablet] 5 - 10 mg PO BID PRN #10 tablet PRN Reason: Magnesium Citrate [Citrate of Magnesia 296 ml Bottle] 296 ml PO ONCE PRN #1 bottle PRN Reason: Forms: Elevated Blood Pressure Referrals: HAKEEM DEWITT PA-C [ALLIED HEALTH PROFESSIONAL] - 01/05/18 [facility] [Provider Group] - Follow up as needed HILARY MEYER MD [ACTIVE STAFF] - Follow up as needed
--- NOTE | 2018-01-04 02:33 | RADIOLOGY REPORT (SQ) ---
EXAM DESCRIPTION: CT abdomen and pelvis without contrast01/04/2018 1:28 AM CDT CLINICAL HISTORY: 67 years, Male, rt back/flank pain COMPARISON: None. TECHNIQUE: Volumetric CT acquisition was performed through the abdomen and pelvis. Images in the axial and coronal planes were presented for interpretation This exam was performed according to our departmental dose-optimization program, which includes automated exposure control, adjustment of the mA and/or kV according to patient size and/or use of iterative reconstruction technique. FINDINGS: The visualized portions of the lung bases are clear. The cardiomediastinal structures are within normal limits. Within the upper abdomen, the liver and spleen are normal in size and morphology. The gallbladder is surgically absent. The intra/extrahepatic biliary tree is normal in appearance. The pancreas and adrenal glands are normal. The right kidney is normal in size and the right ureter is normal in course and caliber. There are no right renal calculi, distal obstructing stones, or evidence of hydronephrosis/hydroureter. The left kidney is normal in size and the left ureter is normal in course and caliber. There are no left renal calculi, distal obstructing stones, or evidence of hydronephrosis/hydroureter. There are surgical changes from prior hiatal hernia repair. The stomach and small intestines are within normal limits without evidence of bowel dilation or wall thickening. The appendix is well visualized and normal. The colon is stool filled and unremarkable. Within the pelvis, the bladder and rectum are normal. The prostate is age-appropriate There are no pathologically enlarged inguinal, retroperitoneal, portacaval, or mesenteric lymph nodes. The soft tissue structures of the abdominal wall are normal. The visualized osseous structures are within normal limits for the patient's age. There are degenerative changes of the lower lumbar spine with facet hypertrophy most pronounced at the L4/L5 and L5/S1 levels. The abdominal aorta and its primary branches are normal in course and caliber. Limited evaluation of the venous structures demonstrates no gross abnormalities. IMPRESSION: 1. No acute intra-abdominal process or clear cause for the patient's right-sided abdominal pain. 2. Status post cholecystectomy.
[2018-01-04 02:49] LABS: ABSOLUTE BASOPHILS # (AUTO) 0.1 10^3/uL (0.0-0.2); ABSOLUTE EOSINOPHILS # (AUTO) 0.3 10^3/uL (0.0-0.6); ABSOLUTE LYMPHOCYTES (AUTO) 1.5 10^3/uL (0.5-4.7); ABSOLUTE MONOCYTES (AUTO) 0.3 10^3/uL (0.1-1.4); ABSOLUTE NEUT (AUTO) 2.8 10^3/uL (1.7-8.2); BASOPHILS % (AUTO) 1.2 % (0-2); EOSINOPHILS % (AUTO) 5.9 % (0-6); HEMATOCRIT 42.9 % (37.9-51.0); HEMOGLOBIN 14.4 g/dL (13.5-17.0); LYMPHOCYTES % (AUTO) 30.5 % (13-45); MEAN CORPUSCULAR HEMOGLOBIN 31.8 pg (27.0-33.4); MEAN CORPUSCULAR HGB CONC 33.5 g/dL (32.0-36.0); MEAN CORPUSCULAR VOLUME 95 fl (80-97); MONOCYTES % (AUTO) 5.5 % (3-13); PLATELET COUNT 193 10^3/uL (150-450); RED BLOOD COUNT 4.52 10^6/uL (4.35-5.55); RED CELL DISTRIBUTION WIDTH 14.2 % (11.5-14.0); SEGMENTED NEUTROPHILS % (AUTO) 56.9 % (42-78); TOTAL CELLS COUNTED % (AUTO) 100 %
[2018-01-04 03:21] LABS: APPEARANCE,URINE CLEAR; BILIRUBIN,URINE NEGATIVE (NEGATIVE); COLOR,URINE YELLOW; GLUCOSE, URINE NEGATIVE (NEGATIVE); KETONES,URINE NEGATIVE (NEGATIVE); LEUKOCYTE ESTERASE,URINE NEGATIVE (NEGATIVE); NITRITE,URINE NEGATIVE (NEGATIVE); PROTEIN,URINE 30 mg/dL (NEGATIVE); URINE SPECIFIC GRAVITY 1.019; UROBILINOGEN,URINE NEGATIVE mg/dL (<2.0)
[2018-01-04 05:13] LABS: ALANINE AMINOTRANSFERASE 38 U/L (21-72); ALBUMIN 3.5 g/dL (3.5-5.0); ALKALINE PHOSPHATASE 63 U/L (38-126); ANION GAP 11 (5-19); ASPARTATE AMINO TRANSFERASE 43 U/L (17-59); BILIRUBIN,DIRECT 0.2 mg/dL (0.0-0.4); BILIRUBIN,TOTAL 0.2 mg/dL (0.2-1.3); BLOOD UREA NITROGEN 18 mg/dL (7-20); CALCIUM 9.1 mg/dL (8.4-10.2); CARBON DIOXIDE 32 mmol/L (22-30); CHLORIDE 104 mmol/L (98-107); GLUCOSE 95 mg/dL (75-110); TOTAL PROTEIN 6.4 g/dL (6.3-8.2)
[2018-01-04 06:26] VITALS: BP 125/87
== END 2018-01-04 06:00 | disposition home or self-care (01) ==
LOC: ER 01:27
DX: K59.00 Constipation, unspecified (principal); M54.5 Low back pain; E11.9 Type 2 diabetes mellitus without complications; I50.9 Heart failure, unspecified; I11.0 Hypertensive heart disease with heart failure; J44.9 Chronic obstructive pulmonary disease, unspecified; I25.2 Old myocardial infarction; Z87.442 Personal history of urinary calculi; Z90.49 Acquired absence of other specified parts of digestive tract
CPT/HCPCS: 99284; 96374; 36415; 85025; 80053; 81001; 76380; J1885

== ENCOUNTER 2018-01-13 10:23 | Emergency (ER) | payer MEDICARE, OTHER ==
[2018-01-13 10:43] VITALS: BP 149/87
--- NOTE | 2018-01-13 11:00 | ER Document Report ---
ED Medical Screen (RME) - General Chief Complaint: Flank Pain Stated Complaint: WEAKNESS Time Seen by Provider: 01/13/18 10:52 Notes: RAPID MEDICAL EVALUATION DISCLOSURE I have seen this patient as part of a Rapid Medical Evaluation and, if applicable, placed any initially appropriate orders. The patient will be seen and fully evaluated, including a full history and physical exam, by a provider ( in Main ED or Fast Track) when a room becomes available. 67-year-old male here with complaints of right flank and right upper/lower quadrant pain ongoing for the past few days. He was seen here for the same thing and CT scan did not show any acute emergency findings. He was diagnosed with back strain and constipation and discharged home with prescription baclofen and ibuprofen. He is back here today because his symptoms persist. He also has some lightheadedness that has been ongoing for the past few days. Lightheadedness is worse with positional changes. He has tried drinking some fluids which has helped some with his symptoms. He has not had any actual syncope. EXAM There is no right back muscle TTP There is no flank muscle TTP No CVA TTP No abdominal TTP TRAVEL OUTSIDE OF THE [place] IN LAST 30 DAYS: No - Related Data Allergies/Adverse Reactions: No Known Allergies Allergy (Verified 04/12/17 00:15) Past Medical History - Past Medical History Cardiac Medical History: Reports: Hx Congestive Heart Failure, Hx Heart Attack, Hx Hypercholesterolemia, Hx Hypertension Pulmonary Medical History: Reports: Hx COPD Endocrine Medical History: Reports: Hx Diabetes Mellitus Type 2 - IDDM Renal/ Medical History: Reports: Hx Kidney Stones, Hx Renal Insufficiency. Denies: Hx Peritoneal Dialysis GI Medical History: Reports: Hx Gastroesophageal Reflux Disease Psychiatric Medical History: Reports: Hx Depression Past Surgical History: Reports: Hx Abdominal Surgery - Ernestina fundoplication, Hx Cardiac Surgery - cardioMEMS implanted, Hx Cholecystectomy, Hx Tonsillectomy - Immunizations Hx Diphtheria, Pertussis, Tetanus Vaccination: Yes Physical Exam - Vital signs Vitals: Temp Pulse Resp BP Pulse Ox 98.8 F 78 20 149/87 H 94 01/13/18 10:42 01/13/18 10:42 01/13/18 10:42 01/13/18 10:42 01/13/18 10:42 Course - Vital Signs Vital signs: Temp Pulse Resp BP Pulse Ox 98.8 F 78 20 149/87 H 94 01/13/18 10:42 01/13/18 10:42 01/13/18 10:42 01/13/18 10:42 01/13/18 10:42
[2018-01-13 11:40] LABS: ABSOLUTE EOSINOPHILS # (AUTO) 0.2 10^3/uL (0.0-0.6); ABSOLUTE LYMPHOCYTES (AUTO) 1.6 10^3/uL (0.5-4.7); ABSOLUTE MONOCYTES (AUTO) 0.4 10^3/uL (0.1-1.4); BASOPHILS % (AUTO) 0.5 % (0-2); EOSINOPHILS % (AUTO) 3.6 % (0-6); HEMATOCRIT 44.5 % (37.9-51.0); HEMOGLOBIN 14.8 g/dL (13.5-17.0); LYMPHOCYTES % (AUTO) 30.2 % (13-45); MEAN CORPUSCULAR HEMOGLOBIN 31.5 pg (27.0-33.4); MEAN CORPUSCULAR HGB CONC 33.2 g/dL (32.0-36.0); MEAN CORPUSCULAR VOLUME 95 fl (80-97); MONOCYTES % (AUTO) 7.4 % (3-13); PLATELET COUNT 206 10^3/uL (150-450); RED BLOOD COUNT 4.68 10^6/uL (4.35-5.55); RED CELL DISTRIBUTION WIDTH 14.1 % (11.5-14.0); SEGMENTED NEUTROPHILS % (AUTO) 58.3 % (42-78); TOTAL CELLS COUNTED % (AUTO) 100 %; WHITE BLOOD COUNT 5.2 10^3/uL (4.0-10.5)
[2018-01-13 11:50] LABS: APPEARANCE,URINE CLEAR; BILIRUBIN,URINE NEGATIVE (NEGATIVE); COLOR,URINE YELLOW; GLUCOSE, URINE NEGATIVE (NEGATIVE); KETONES,URINE NEGATIVE (NEGATIVE); LEUKOCYTE ESTERASE,URINE NEGATIVE (NEGATIVE); NITRITE,URINE NEGATIVE (NEGATIVE); PROTEIN,URINE 30 mg/dL (NEGATIVE); URINE SPECIFIC GRAVITY 1.025
[2018-01-13 12:02] LABS: ALANINE AMINOTRANSFERASE 46 U/L (21-72); ALBUMIN 4.1 g/dL (3.5-5.0); ALKALINE PHOSPHATASE 72 U/L (38-126); ANION GAP 13 (5-19); ASPARTATE AMINO TRANSFERASE 57 U/L (17-59); BILIRUBIN,DIRECT 0.2 mg/dL (0.0-0.4); BILIRUBIN,TOTAL 0.4 mg/dL (0.2-1.3); BLOOD UREA NITROGEN 19 mg/dL (7-20); CARBON DIOXIDE 29 mmol/L (22-30); CHLORIDE 104 mmol/L (98-107); GLUCOSE 100 mg/dL (75-110); LIPASE 70.2 U/L (23-300); POTASSIUM 4.4 mmol/L (3.6-5.0); SODIUM 145.8 mmol/L (137-145); TOTAL PROTEIN 7.1 g/dL (6.3-8.2)
--- NOTE | 2018-01-13 13:06 | ER Document Report ---
ED Neck/Back Problem <ADDI SUAREZ - Last Filed: 01/13/18 14:07> - General Mode of Arrival: Ambulatory Information source: Patient TRAVEL OUTSIDE OF THE [place] IN LAST 30 DAYS: No <MARY STERLING - Last Filed: 01/13/18 14:54> - General Chief Complaint: Flank Pain Stated Complaint: WEAKNESS Time Seen by Provider: 01/13/18 10:52 Notes: 67-year-old male that presents to the emergency department today with complaints of lower back pain that radiates around his left side and around to his abdomen. Patient states he has been having these symptoms for a few months. Patient states the symptoms are exacerbated with movement, twisting, and turning. Patient ambulates with a walker. (MARY STERLING) - Related Data Allergies/Adverse Reactions: No Known Allergies Allergy (Verified 04/12/17 00:15) Past Medical History - General Information source: Patient - Social History Smoking Status: Never Smoker Cigarette use (# per day): No Frequency of alcohol use: None Drug Abuse: None Lives with: Family Family History: Reviewed & Not Pertinent Patient has suicidal ideation: No Patient has homicidal ideation: No - Past Medical History Cardiac Medical History: Reports: Hx Congestive Heart Failure, Hx Heart Attack, Hx Hypercholesterolemia, Hx Hypertension Pulmonary Medical History: Reports: Hx COPD Endocrine Medical History: Reports: Hx Diabetes Mellitus Type 2 - IDDM Renal/ Medical History: Reports: Hx Kidney Stones, Hx Renal Insufficiency GI Medical History: Reports: Hx Gastroesophageal Reflux Disease Psychiatric Medical History: Reports: Hx Depression Past Surgical History: Reports: Hx Abdominal Surgery - Ernestina fundoplication, Hx Cardiac Surgery - cardioMEMS implanted, Hx Cholecystectomy, Hx Tonsillectomy - Immunizations Hx Diphtheria, Pertussis, Tetanus Vaccination: Yes Hx Pneumococcal Vaccination: 06/30/12 <MARY STERLING - Last Filed: 01/13/18 14:54> Review of Systems - Review of Systems Musculoskeletal: See HPI, Back pain - radiating around to left flank <MARY STERLING - Last Filed: 01/13/18 14:54> Physical Exam <ADDI SUAREZ - Last Filed: 01/13/18 14:07> <MARY STERLING - Last Filed: 01/13/18 14:54> - Vital signs Vitals: Temp Pulse Resp BP Pulse Ox 98.8 F 78 20 149/87 H 94 01/13/18 10:42 01/13/18 10:42 01/13/18 10:42 01/13/18 10:42 01/13/18 10:42 - Notes Notes: Physical Exam: General: Alert, appears well. HEENT: Normocephalic. Atraumatic. PERRL. Extraocular movements intact. Oropharynx clear. Neck: Supple. Non-tender. Respiratory: No respiratory distress. Clear and equal breath sounds bilaterally. Cardiovascular: Regular rate and rhythm. Abdominal: Obese. Non-tender. No distension. Normal Bowel Sounds. Back: Lower lumbar musculature tenderness with palpation. Left flank and lateral abdominal wall musculature tenderness with palpation. No deformity or step off. Extremities: Moves all four extremities. Ambulates with walker. Upper extremities: Normal inspection. Normal ROM. Lower extremities: 1+ edema to bilateral lower extremities. Normal ROM. Neurological: Normal cognition. AAOx4. Normal speech. Psychological: Normal affect. Normal Mood. Skin: Warm. Dry. Normal color. (MARY STERLING) Course - Laboratory Result Diagrams: 01/13/18 11:26 01/13/18 11:26 <ADDI SUAREZ - Last Filed: 01/13/18 14:07> - Laboratory Result Diagrams: 01/13/18 11:26 01/13/18 11:26 <MARY STERLING - Last Filed: 01/13/18 14:54> - Re-evaluation Re-evalutation: 01/13/18 14:07 The patient's clinical history and review of his lab work and visit 9 days ago, suggests that he has chronic low back pain caused by degenerative joint disease in his lumbar spine and has probably strained some muscles in the left flank and abdomen recently. Today his sed rate is 17, and his CRP is 5.[address] limited of the abdomen and pelvis 9 days ago that was remarkable only for the degenerative joint disease and facet hypertrophy in the lumbar sacral spine. He does not normally take any pain medication other than perhaps Tylenol. I think it is reasonable to give him a low-dose narcotic for the next week or so until his lateral abdomen and flank muscle injury begins to improve. He does have renal insufficiency, he does have diabetes, he would probably be better served not taking NSAIDs. (ADDI SUAREZ) - Vital Signs Vital signs: Temp Pulse Resp BP Pulse Ox 98.8 F 78 20 149/87 H 94 01/13/18 10:42 01/13/18 10:42 01/13/18 10:42 01/13/18 10:42 01/13/18 10:42 - Laboratory Laboratory results interpreted by me: 01/13/18 01/13/18 01/13/18 11:26 11:26 11:26 RDW 14.1 H Sodium 145.8 H Creatinine 1.83 H Est GFR ( Amer) 45 L Est GFR (Non-Af Amer) 37 L Urine Protein 30 H Urine Urobilinogen 2.0 H Urine Ascorbic Acid 40 H Discharge <ADDI SUAREZ - Last Filed: 01/13/18 14:07> <MARY STERLING - Last Filed: 01/13/18 14:54> - Discharge Clinical Impression: Pain in abdominal muscle of left flank Degenerative joint disease (DJD) of lumbar spine Qualifiers: Spinal osteoarthritis complication: without myelopathy or radiculopathy Qualified Code(s): M47.816 - Spondylosis without myelopathy or radiculopathy, lumbar region Abdominal muscle strain Qualifiers: Encounter type: initial encounter Qualified Code(s): S39.011A - Strain of muscle, fascia and tendon of abdomen, initial encounter Condition: Stable Disposition: HOME, SELF-CARE Additional Instructions: The pain you are having in your low back and left flank and abdomen is probably due to a muscle strain in the flank and abdomen and the chronic degenerative joint disease in your lumbar back. You will be prescribed a pain medicine to take for the next several days until the muscle strain begins to improve. You should follow-up with Dr. Gaines later this week for recheck. RETURN TO THE EMERGENCY ROOM IF ANY NEW OR WORSENING SYMPTOMS. Prescriptions: Hydrocodone/Acetaminophen [[place] 5-325 mg Tablet] 1 tab PO ASDIR PRN #15 tablet PRN Reason: Referrals: CALVIN GAINES MD [NO LOCAL MD] - Follow up in 3-5 days Scribe Attestation: 01/13/18 14:13 I personally performed the services described in the documentation, reviewed and edited the documentation which was dictated to the scribe in my presence, and it accurately records my words and actions. (ADDI SUAREZ) Scribe Documentation - Scribe Written by Scribe:: Kt Jacobs, 01/13/2018 1454 acting as scribe for :: Dione <MARY STERLING - Last Filed: 01/13/18 14:54>
[2018-01-13 13:54] LABS: C-REACTIVE PROTEIN 5.5 mg/L (<10.0)
[2018-01-13] MEDS ORDERED: HYDROCODONE/ACETAMINOPHEN 5-325 MG TABLET PO ONE (14:14)
== END 2018-01-13 14:24 | disposition home or self-care (01) ==
LOC: ER 10:23
DX: S39.011A Strain of muscle, fascia and tendon of abdomen, initial encounter (principal); M47.816 Spondylosis without myelopathy or radiculopathy, lumbar region; R53.1 Weakness; X58.XXXA Exposure to other specified factors, initial encounter; I50.9 Heart failure, unspecified; E78.00 Pure hypercholesterolemia, unspecified; I11.0 Hypertensive heart disease with heart failure; J44.9 Chronic obstructive pulmonary disease, unspecified; E11.9 Type 2 diabetes mellitus without complications; I25.2 Old myocardial infarction; Z79.4 Long term (current) use of insulin; Z87.442 Personal history of urinary calculi; Z90.49 Acquired absence of other specified parts of digestive tract
CPT/HCPCS: 36415; 80053; 81001; 83690; 83735; 85025; 85652; 86140; 99285

== ENCOUNTER 2018-02-17 08:25 | Emergency (ER) | payer OTHER, MEDICARE ==
[2018-02-17 09:58] LABS: ABSOLUTE EOSINOPHILS # (AUTO) 0.2 10^3/uL (0.0-0.6); ABSOLUTE LYMPHOCYTES (AUTO) 1.2 10^3/uL (0.5-4.7); ABSOLUTE MONOCYTES (AUTO) 0.3 10^3/uL (0.1-1.4); ABSOLUTE NEUT (AUTO) 2.7 10^3/uL (1.7-8.2); BASOPHILS % (AUTO) 0.6 % (0-2); EOSINOPHILS % (AUTO) 4.3 % (0-6); HEMATOCRIT 42.4 % (37.9-51.0); LYMPHOCYTES % (AUTO) 27.2 % (13-45); MEAN CORPUSCULAR HEMOGLOBIN 31.4 pg (27.0-33.4); MEAN CORPUSCULAR HGB CONC 33.1 g/dL (32.0-36.0); MEAN CORPUSCULAR VOLUME 95 fl (80-97); MONOCYTES % (AUTO) 6.6 % (3-13); PLATELET COUNT 200 10^3/uL (150-450); RED BLOOD COUNT 4.47 10^6/uL (4.35-5.55); SEGMENTED NEUTROPHILS % (AUTO) 61.3 % (42-78); TOTAL CELLS COUNTED % (AUTO) 100 %; WHITE BLOOD COUNT 4.4 10^3/uL (4.0-10.5)
[2018-02-17 10:08] LABS: ALANINE AMINOTRANSFERASE 37 U/L (21-72); ALBUMIN 3.8 g/dL (3.5-5.0); ALKALINE PHOSPHATASE 71 U/L (38-126); ANION GAP 13 (5-19); ASPARTATE AMINO TRANSFERASE 36 U/L (17-59); BILIRUBIN,DIRECT 0.2 mg/dL (0.0-0.4); BILIRUBIN,TOTAL 0.3 mg/dL (0.2-1.3); BLOOD UREA NITROGEN 19 mg/dL (7-20); CALCIUM 9.2 mg/dL (8.4-10.2); CARBON DIOXIDE 27 mmol/L (22-30); CHLORIDE 104 mmol/L (98-107); GLUCOSE 122 mg/dL (75-110); LIPASE 86.6 U/L (23-300); POTASSIUM 4.4 mmol/L (3.6-5.0); SODIUM 143.6 mmol/L (137-145); TOTAL PROTEIN 6.9 g/dL (6.3-8.2)
[2018-02-17 10:40] LABS: APPEARANCE,URINE CLEAR; BILIRUBIN,URINE NEGATIVE (NEGATIVE); COLOR,URINE YELLOW; GLUCOSE, URINE NEGATIVE (NEGATIVE); KETONES,URINE NEGATIVE (NEGATIVE); LEUKOCYTE ESTERASE,URINE NEGATIVE (NEGATIVE); NITRITE,URINE NEGATIVE (NEGATIVE); PROTEIN,URINE NEGATIVE (NEGATIVE); URINE SPECIFIC GRAVITY 1.019; UROBILINOGEN,URINE NEGATIVE mg/dL (<2.0)
--- NOTE | 2018-02-17 13:29 | RADIOLOGY REPORT (SQ) ---
EXAM DESCRIPTION: CT ABD/PELVIS WITH IV ORAL COMPLETED DATE/TIME: 02/17/2018 1:17 pm REASON FOR STUDY: Right side pain for several months. COMPARISON: 01/04/2018. TECHNIQUE: CT scan of the abdomen and pelvis performed using helical scanning technique with dynamic intravenous contrast injection. No oral contrast. Images reviewed with lung, soft tissue, and bone windows. Reconstructed coronal and sagittal MPR images reviewed. Delayed images for evaluation of the urinary system also acquired. All images stored on PACS. All CT scanners at this facility use dose modulation, iterative reconstruction, and/or weight based d osing when appropriate to reduce radiation dose to as low as reasonably achievable (ALARA). [facility]: Dose Right [facility]: CareDose [facility]: Dose Right [facility]: Teradose 4D [facility]: Signiant CONTRAST TYPE AND DOSE: contrast/concentration: Isovue 350.00 mg/ml; Total Contrast Delivered: 97.0 ml; Total Saline Delivered: 62.0 ml RENAL FUNCTION: Creatinine 1.8. RADIATION DOSE: CT Rad equipment meets quality standard of care and radiation dose reduction techniq ues were employed. CTDIvol: NaN - NaN mGy. DLP: 0 mGy-cm.. LIMITATIONS: None. FINDINGS: LOWER CHEST: Cardiac enlargement. Visualized lung bases are clear. LIVER: Fatty parenchyma. No mass or enlargement. No duct dilatation evident. SPLEEN: Normal size. No focal lesions. PANCREAS: No masses. No significant calcifications. No adjacent inflammation or peripancreatic fluid collections. Pancreatic duct not dilated. GALLBLADDER: Surgically absent. ADRENAL GLANDS: Chronic right nodularity, nonprogressive. Probable adenomas. RIGHT KIDNEY AND URETER: No solid masses. No significant calcification. No hydronephrosis or hydroure ter. LEFT KIDNEY AND URETER: No solid masses. No significant calcification. No hydronephrosis or hydrouret er. AORTA AND VESSELS: No aneurysm. No dissection. Renal arteries, SMA, celiac without stenosis. RETROPERITONEUM: No retroperitoneal adenopathy, hemorrhage or masses. BOWEL AND PERITONEAL CAVITY: Moderate stool. No dilated loops to suggest obstruction. No abnormal w all thickening or inflammatory process related to bowel. No ascites or abnormal gas. APPENDIX: Normal. PELVIS: No mass. No free fluid. Normal bladder. ABDOMINAL WALL: No masses. No hernias. BONES: No significant or acute findings. OTHER: No other significant finding. IMPRESSION: 1. No acute or suspicious abdominopelvic abnormality. TECHNICAL DOCUMENTATION: JOB ID: [id number] Quality ID # [id number]: Final reports with documentation of one or more dose reduction techniques (e.g., Au tomated exposure control, adjustment of the mA and/or kV according to patient size, use of iterative reconstruction technique) 2010 [employer]- All Rights Reserved Reading location - IP/workstation name: [email or web address]
--- NOTE | 2018-02-17 14:11 | ER Document Report ---
ED GI/ - General Chief Complaint: Abdominal Pain Stated Complaint: SIDE PAIN Time Seen by Provider: 02/17/18 09:30 Notes: Patient says he has been having abdominal pains in the right waist area for about 3 months. He says these pains are getting worse and are exacerbated by movement, and helped by Tylenol. He has them at least every day and they come and go. Denies any nausea or vomiting. Denies any diarrhea. Has been having more trouble with his bowel movements. Last bowel movement was 2 days ago. Says the pain starts over on the right and sometimes goes over into the left upper quadrant. No fevers. No urinary tract symptoms. PMH: Cholecystectomy and a Ernestina fundoplication History of IDDM, hypertension, CHF. TRAVEL OUTSIDE OF THE [place] IN LAST 30 DAYS: No - Related Data Allergies/Adverse Reactions: No Known Allergies Allergy (Verified 04/12/17 00:15) Past Medical History - Social History Smoking Status: Never Smoker Frequency of alcohol use: None Drug Abuse: None Family History: Reviewed & Not Pertinent Patient has suicidal ideation: No Patient has homicidal ideation: No - Past Medical History Cardiac Medical History: Reports: Hx Congestive Heart Failure, Hx Heart Attack, Hx Hypercholesterolemia, Hx Hypertension Pulmonary Medical History: Reports: Hx COPD Endocrine Medical History: Reports: Hx Diabetes Mellitus Type 2 - IDDM Renal/ Medical History: Reports: Hx Kidney Stones, Hx Renal Insufficiency GI Medical History: Reports: Hx Gastroesophageal Reflux Disease Psychiatric Medical History: Reports: Hx Depression Past Surgical History: Reports: Hx Abdominal Surgery - Ernestina fundoplication, Hx Cardiac Surgery - cardioMEMS implanted, Hx Cholecystectomy, Hx Tonsillectomy - Immunizations Hx Diphtheria, Pertussis, Tetanus Vaccination: Yes Hx Pneumococcal Vaccination: 06/30/12 Review of Systems - Review of Systems Notes: REVIEW OF SYSTEMS: CONSTITUTIONAL : Denies fever. EENT: Denies eye, ear, nose or mouth or throat pain or other symptoms. CARDIOVASCULAR: Denies chest pain. RESPIRATORY: Denies cough, chest congestion, or shortness of breath. GASTROINTESTINAL: See HPI. GENITOURINARY: Denies difficulty or painful urinating, urinary frequency, blood in urine. MUSCULOSKELETAL: Denies back or neck pain. Denies joint pain or swelling. SKIN: Denies rash or skin lesions. NEUROLOGICAL: Denies LOC or altered mental status. Denies headache. Denies sensory loss or motor deficits. ALL OTHER SYSTEMS REVIEWED AND NEGATIVE. Physical Exam - Vital signs Vitals: Temp Pulse Resp BP Pulse Ox 99.0 F 84 16 142/78 H 93 02/17/18 08:34 02/17/18 08:34 02/17/18 08:34 02/17/18 08:34 02/17/18 08:34 Interpretation: Normal Notes: PHYSICAL EXAMINATION: GENERAL: Well-appearing, in no acute distress. HEAD: Atraumatic, normocephalic. EYES: Pupils equal round and reactive to light, extraocular movements intact. ENT: oropharynx clear without exudates. Moist mucous membranes. NECK: Normal range of motion, supple. LUNGS: Breath sounds clear and equal bilaterally. HEART: Regular rate and rhythm without murmurs. ABDOMEN: Soft, only minimal tenderness to palpation of the right waist region. No masses felt. No bruits heard. No guarding or rebound. BACK: No tenderness throughout entire back. EXTREMITIES: Normal range of motion without pain. NEUROLOGICAL: Normal speech, normal gait. Normal sensory, motor, and reflex exams. Awake, alert, and oriented x3. Cranial nerves normal. PSYCH: Normal mood, normal affect. SKIN: Warm, dry, no rashes. Course - Re-evaluation Re-evalutation: 02/17/18 14:08 Patient's workup is entirely normal. Labs and normal CT scan. He seems very appreciative of the workup and acceptance of the results. - Vital Signs Vital signs: Temp Pulse Resp BP Pulse Ox 97.7 F 62 16 127/77 H 92 02/17/18 14:48 02/17/18 14:48 02/17/18 14:48 02/17/18 14:48 02/17/18 14:48 - Laboratory Result Diagrams: 02/17/18 09:33 02/17/18 09:33 Laboratory results interpreted by me: 02/17/18 09:33 Creatinine 1.81 H Est GFR ( Amer) 45 L Est GFR (Non-Af Amer) 37 L Glucose 122 H Discharge - Discharge Clinical Impression: Right sided abdominal pain Condition: Stable Disposition: HOME, SELF-CARE Additional Instructions: ABDOMINAL PAIN: There are many causes of abdominal pain. Pain can mean a serious problem requiring surgery (such as appendicitis). It can also be an innocent problem that goes away on its own (such as a viral infection). Often, time must pass to determine the cause of pain. The physician does not feel that hospitalization is necessary, at present. Things may change within the next 24 hours. Call the doctor or come back for re- examination if any problems occur, such as: (1) Pain that becomes more severe, steady, or becomes concentrated in one specific area. Also, pain that is more severe with movement or coughing. (2) Vomiting that persists or becomes more frequent. (3) Blood in the vomitus, urine, or bowel movements. Blood in the stool may have a tarry or black appearance. (4) Shaking chills or fever greater than 100 degrees F. (5) The abdomen becomes more distended or swollen. (6) Bowel movements cease. (7) Failure to improve as expected. NORMAL EXAM AND WORKUP: At this time, your examination and workup show no significant abnormality. No significant abnormal physical findings are noted. All laboratory, EKG, and imaging (x-ray, CT scans, ultrasound) studies that were ordered show no significant abnormality. Although your examination and all studies that were ordered showed no significant abnormal finding, there are no examinations and no studies that are 100% accurate. There is always the possibility that some abnormality could exist and not be detected with physical examination or within the limits and capabilities of laboratory and other studies. You should return or follow up as you were instructed on your visit today for further evaluation if your symptoms do not resolve. USE OF ACETAMINOPHEN (Tylenol): Acetaminophen may be taken for pain relief or fever control. It's much safer than aspirin, offering a wider range of "safe" dosages. It is safe during . Some brand names are Tylenol, Panadol, Datril, Anacin 3, Tempra, and Liquiprin. Acetaminophen can be repeated every four hours. The following are maximum recommended dosages: WEIGHT Dose Drops Elixir Chewable( 80mg) (LBS.) drprs=droppers tsp=teaspoon >89 pounds or adults 650 mg to 900 mg Acetaminophen can be repeated every four hours. Maximum dose not to exceed 4000 mg a day. These maximum recommended dosages are slightly higher than the dosages written on the product container, but these dosages are very safe and below the toxic dosage for acetaminophen. Ibuprofen Ibuprofen is an excellent, safe drug for pain control. In addition, it has potent antiinflammatory effects which are beneficial, especially in the treatment of injuries, arthritis, or tendonitis. It's best to take ibuprofen with food. Persons with ulcer disease or allergy to aspirin should notify their physician of this before taking ibuprofen. Take the medication exactly as prescribed. Don't take additional doses unless instructed to do so by your doctor. If you develop wheezing, shortness of breath, hives, faintness, stomach pain, vomiting, or dark black stools, return for re-evaluation at once. FOLLOW-UP CARE: If you have been referred to a physician for follow-up care, call the physician s office for an appointment as you were instructed or within the next two days. If you experience worsening or a significant change in your symptoms, notify the physician immediately or return to the Emergency Department at any time for re-evaluation.
[2018-02-17 14:50] VITALS: BP 127/77
== END 2018-02-17 14:50 | disposition home or self-care (01) ==
LOC: ER 08:25
DX: R10.11 Right upper quadrant pain (principal); R10.12 Left upper quadrant pain; I10 Essential (primary) hypertension; J44.9 Chronic obstructive pulmonary disease, unspecified; E11.9 Type 2 diabetes mellitus without complications; Z79.4 Long term (current) use of insulin
CPT/HCPCS: 36415; 74177; 80053; 81001; 83690; 85025; 99284

== ENCOUNTER → 2018-05-13 | Outpatient (CLI) | payer OTHER, MEDICARE ==
[2018-05-13 15:40] LABS: HEMATOCRIT 44.9 % (37.9-51.0); HEMOGLOBIN 14.9 g/dL (13.5-17.0); MEAN CORPUSCULAR HEMOGLOBIN 31.8 pg (27.0-33.4); MEAN CORPUSCULAR HGB CONC 33.3 g/dL (32.0-36.0); MEAN CORPUSCULAR VOLUME 96 fl (80-97); PLATELET COUNT 203 10^3/uL (150-450); RED BLOOD COUNT 4.69 10^6/uL (4.35-5.55); RED CELL DISTRIBUTION WIDTH 13.8 % (11.5-14.0); WHITE BLOOD COUNT 5.3 10^3/uL (4.0-10.5)
[2018-05-13 16:03] LABS: ANION GAP 11 (5-19); BLOOD UREA NITROGEN 15 mg/dL (7-20); CALCIUM 9.4 mg/dL (8.4-10.2); CARBON DIOXIDE 32 mmol/L (22-30); CHLORIDE 101 mmol/L (98-107); GLUCOSE 100 mg/dL (75-110); SODIUM 143.7 mmol/L (137-145)
[2018-05-13 16:27] LABS: APPEARANCE,URINE CLEAR; BILIRUBIN,URINE NEGATIVE (NEGATIVE); COLOR,URINE YELLOW; GLUCOSE, URINE NEGATIVE (NEGATIVE); KETONES,URINE NEGATIVE (NEGATIVE); LEUKOCYTE ESTERASE,URINE NEGATIVE (NEGATIVE); NITRITE,URINE NEGATIVE (NEGATIVE); PROTEIN,URINE 100 mg/dL (NEGATIVE); URINE SPECIFIC GRAVITY 1.025; UROBILINOGEN,URINE NEGATIVE mg/dL (<2.0)
[2018-05-13 17:15] LABS: UR PRO/CREAT RATIO RESULT 0.1 mg/mg (0.0-0.2); URINE CREATININE 306.4 mg/dL (22-328); URINE PROTEIN 27.2 mg/dL (<12)
== END ==
LOC: OD 14:59
PROVIDERS: ATTEND Internal Medicine Nephrology
DX: I12.9 Hypertensive chronic kidney disease with stage 1 through stage 4 chronic kidney disease, or unspecified chronic kidney disease (principal); N18.3 Chronic kidney disease, stage 3 (moderate); E11.9 Type 2 diabetes mellitus without complications; R80.9 Proteinuria, unspecified
CPT/HCPCS: 36415; 80048; 81001; 82570; 84156; 85027

== ENCOUNTER 2018-05-20 15:36 | Emergency (ER) | payer MEDICARE, OTHER ==
--- NOTE | 2018-05-20 16:02 | ER Document Report ---
ED Respiratory Problem - General Chief Complaint: Shortness Of Breath Stated Complaint: SHORTNESS OF BREATH Time Seen by Provider: 05/20/18 16:01 Notes: This is a 68-year-old male to the emergency department for evaluation of shortness of breath. Patient has a long-standing history of congestive heart failure. Has some sort of implantable device which monitors his CHF. Denies any chest pain. States that talking makes his breathing worse and feels short of breath when he lies flat and when he talks and moves. TRAVEL OUTSIDE OF THE [place] IN LAST 30 DAYS: No - HPI Patient complains to provider of: Short of breath Onset: Yesterday Duration: Continuous Quality of pain: No pain - Related Data Allergies/Adverse Reactions: No Known Allergies Allergy (Verified 04/12/17 00:15) Past Medical History - General Information source: Patient - Social History Smoking Status: Former Smoker Chew tobacco use (# tins/day): No Frequency of alcohol use: None Drug Abuse: None Lives with: Family Family History: Reviewed & Not Pertinent Patient has suicidal ideation: No Patient has homicidal ideation: No - Past Medical History Cardiac Medical History: Reports: Hx Congestive Heart Failure, Hx Heart Attack, Hx Hypercholesterolemia, Hx Hypertension Pulmonary Medical History: Reports: Hx COPD Endocrine Medical History: Reports: Hx Diabetes Mellitus Type 2 - IDDM Renal/ Medical History: Reports: Hx Kidney Stones, Hx Renal Insufficiency. Denies: Hx Peritoneal Dialysis GI Medical History: Reports: Hx Gastroesophageal Reflux Disease Psychiatric Medical History: Reports: Hx Depression Past Surgical History: Reports: Hx Abdominal Surgery - Ernestina fundoplication, Hx Cardiac Surgery - cardioMEMS implanted, Hx Cholecystectomy, Hx Tonsillectomy - Immunizations Hx Diphtheria, Pertussis, Tetanus Vaccination: Yes Hx Pneumococcal Vaccination: 06/30/12 Review of Systems - Review of Systems Notes: Constitutional: denies: Chills, Diaphoresis, Fever, Malaise, Weakness EENT: denies: Eye discharge, Blurred vision, Tearing, Double vision, Nose congestion, Nose discharge, Throat swelling, Mouth pain Cardiovascular: denies: Palpitations, Heart racing, Orthopnea, Dyspnea, Chest pain Respiratory: denies: Cough, Hurts to breathe, Wheezing,. Does complain of shortness of breath Gastrointestinal: denies: Abdominal pain, Diarrhea, Nausea, Vomiting, Black stools, bright red blood in stool Genitourinary: denies: Burning, Dysuria, Discharge, Frequency, Flank pain, Hematuria Musculoskeletal: denies: Joint pain, Joint swelling, Muscle pain, Muscle stiffness, back pain Hematologic/Lymphatic: denies: Anemia, Easy bleeding, Easy bruising, Blood clots Neurological/Psychological: denies: Confusion, Dementia, Depression, Loss of consciousness Skin: No lesions, no masses, no skin breakdown, no abscesses Physical Exam - Vital signs Vitals: Pulse Ox 95 05/20/18 15:40 Interpretation: Normal - General General appearance: Appears well, Alert - HEENT Head: Normocephalic, Atraumatic Eyes: Normal Pupils: PERRL - Respiratory Respiratory status: No respiratory distress Chest status: Nontender Breath sounds: Normal Chest palpation: Normal - Cardiovascular Rhythm: Regular Heart sounds: Normal auscultation Murmur: No - Abdominal Inspection: Normal Distension: No distension Bowel sounds: Normal Tenderness: Nontender Organomegaly: No organomegaly - Back Back: Normal, Nontender - Extremities General upper extremity: Normal inspection, Nontender, Normal color, Normal ROM , Normal temperature General lower extremity: Normal inspection, Nontender, Normal color, Normal ROM , Normal temperature, Normal weight bearing. No: Ariela's sign - Neurological Neuro grossly intact: Yes Cognition: Normal Orientation: AAOx4 Rosemarie Coma Scale Eye Opening: Spontaneous Rosemarie Coma Scale Verbal: Oriented Rosemarie Coma Scale Motor: Obeys Commands Kirklin Coma Scale Total: 15 Speech: Normal Motor strength normal: LUE, RUE, LLE, RLE Sensory: Normal - Psychological Associated symptoms: Normal affect, Normal mood - Skin Skin Temperature: Warm Skin Moisture: Dry Skin Color: Normal Course - Re-evaluation Re-evalutation: 05/20/18 19:07 At this time patient's BNP is within normal limits. He has some cardiomegaly but no signs of CHF at this time. Oxygen saturations have never fallen below 92 %. Patient is talking in full sentences. We had a lifelong conversation. This is a pleasant individual with a very great fund of knowledge of his medical conditions. Followed by cardiology. Has regular primary care doctor. Has a plan of action in the event that his symptoms get worse. At this time I would like to give him a breathing treatment and some Lasix and let him go home. He is comfortable with that plan. Anticipate discharge shortly. - Vital Signs Vital signs: Temp Pulse Resp BP Pulse Ox 23 H 149/90 H 95 05/20/18 16:01 05/20/18 16:01 05/20/18 16:01 - Laboratory Result Diagrams: 05/20/18 16:00 05/20/18 16:45 Laboratory results interpreted by me: 05/20/18 05/20/18 16:45 18:02 Creatinine 1.56 H Est GFR ( Amer) 54 L Est GFR (Non-Af Amer) 44 L Urine Protein 30 H Discharge - Discharge Clinical Impression: Dyspnea Qualifiers: Dyspnea type: unspecified Qualified Code(s): R06.00 - Dyspnea, unspecified Condition: Good Disposition: HOME, SELF-CARE Instructions: Dyspnea, Nonspecific ([facility]) Additional Instructions: You were given a breathing treatment and some Lasix. Your labs looked unremarkable. Your chest x-ray did not show any signs of fluid on your lungs. At this time we fell like it is okay for you to go home. If you begin to get worse please return and let me check you again tomorrow. I will be here tomorrow as well as on Friday from the hours of 2 PM until midnight so please return so that I can recheck you if things are getting worse. It was a pleasure taking care of you today. Referrals: Odalis CERDA MD [ACTIVE STAFF] - Follow up as needed
[2018-05-20 16:12] LABS: ABSOLUTE BASOPHILS # (AUTO) 0.1 10^3/uL (0.0-0.2); ABSOLUTE EOSINOPHILS # (AUTO) 0.2 10^3/uL (0.0-0.6); ABSOLUTE LYMPHOCYTES (AUTO) 1.6 10^3/uL (0.5-4.7); ABSOLUTE MONOCYTES (AUTO) 0.5 10^3/uL (0.1-1.4); ABSOLUTE NEUT (AUTO) 6.3 10^3/uL (1.7-8.2); EOSINOPHILS % (AUTO) 2.4 % (0-6); HEMATOCRIT 42.5 % (37.9-51.0); HEMOGLOBIN 14.2 g/dL (13.5-17.0); LYMPHOCYTES % (AUTO) 18.5 % (13-45); MEAN CORPUSCULAR HEMOGLOBIN 31.6 pg (27.0-33.4); MEAN CORPUSCULAR HGB CONC 33.4 g/dL (32.0-36.0); MEAN CORPUSCULAR VOLUME 95 fl (80-97); PLATELET COUNT 208 10^3/uL (150-450); RED BLOOD COUNT 4.49 10^6/uL (4.35-5.55); RED CELL DISTRIBUTION WIDTH 13.9 % (11.5-14.0); SEGMENTED NEUTROPHILS % (AUTO) 72.1 % (42-78); TOTAL CELLS COUNTED % (AUTO) 100 %; WHITE BLOOD COUNT 8.7 10^3/uL (4.0-10.5)
--- NOTE | 2018-05-20 16:15 | RADIOLOGY REPORT (SQ) ---
EXAM DESCRIPTION: CHEST SINGLE VIEW COMPLETED DATE/TIME: 05/20/2018 4:06 pm REASON FOR STUDY: bed 2 db COMPARISON: 01/02/2017 EXAM PARAMETERS: NUMBER OF VIEWS: One view. TECHNIQUE: Single frontal radiographic view of the chest acquired. RADIATION DOSE: NA LIMITATIONS: None. FINDINGS: LUNGS AND PLEURA: Low lung volumes. No infiltrate, effusion, or mass. MEDIASTINUM AND HILAR STRUCTURES: No masses. Contour normal. HEART AND VASCULAR STRUCTURES: Heart size is borderline. No pulmonary edema. BONES: No acute findings. HARDWARE: None in the chest. OTHER: No other significant finding. IMPRESSION: Borderline cardiomegaly with no pulmonary edema. TECHNICAL DOCUMENTATION: JOB ID: [id number] [employer]- All Rights Reserved Reading location - IP/workstation name: [email or web address]
[2018-05-20 17:34] LABS: TROPONIN I < 0.012 ng/mL
[2018-05-20 18:10] LABS: ALANINE AMINOTRANSFERASE 22 U/L (21-72); ALBUMIN 3.7 g/dL (3.5-5.0); ALKALINE PHOSPHATASE 72 U/L (38-126); ANION GAP 10 (5-19); ASPARTATE AMINO TRANSFERASE 27 U/L (17-59); BILIRUBIN,DIRECT 0.2 mg/dL (0.0-0.4); BILIRUBIN,TOTAL 0.4 mg/dL (0.2-1.3); BLOOD UREA NITROGEN 16 mg/dL (7-20); CARBON DIOXIDE 29 mmol/L (22-30); CHLORIDE 103 mmol/L (98-107); CREATINE KINASE 134 U/L (55-170); GLUCOSE 84 mg/dL (75-110); POTASSIUM 4.1 mmol/L (3.6-5.0); TOTAL PROTEIN 6.7 g/dL (6.3-8.2)
[2018-05-20 18:14] LABS: APPEARANCE,URINE CLEAR; BILIRUBIN,URINE NEGATIVE (NEGATIVE); COLOR,URINE STRAW; GLUCOSE, URINE NEGATIVE (NEGATIVE); KETONES,URINE NEGATIVE (NEGATIVE); LEUKOCYTE ESTERASE,URINE NEGATIVE (NEGATIVE); NITRITE,URINE NEGATIVE (NEGATIVE); PROTEIN,URINE 30 mg/dL (NEGATIVE); URINE SPECIFIC GRAVITY 1.014; UROBILINOGEN,URINE NEGATIVE mg/dL (<2.0)
[2018-05-20] MEDS ORDERED: FUROSEMIDE INJ/PF 40 MG/4 ML SDV IV ONE (18:37)
[2018-05-20] MEDS ORDERED: ALBUTEROL SULFATE 0.083% NEB 2.5 MG/3 ML AMPUL NEB ONE (18:54)
[2018-05-20 19:18] VITALS: BP 149/86
--- NOTE | 2018-05-21 09:38 | EKG REPORT ---
SEVERITY:- ABNORMAL ECG - SINUS RHYTHM PROBABLE LEFT ATRIAL ABNORMALITY IVCD, CONSIDER ATYPICAL RBBB PROBABLE INFERIOR INFARCT, OLD : Confirmed by: Fransisca Antonio MD 21-May-2018 09:37:40
== END 2018-05-20 19:40 | disposition home or self-care (01) ==
LOC: ER 15:36
DX: J44.9 Chronic obstructive pulmonary disease, unspecified (principal); I45.10 Unspecified right bundle-branch block; I11.0 Hypertensive heart disease with heart failure; I50.9 Heart failure, unspecified; Z95.818 Presence of other cardiac implants and grafts; R06.02 Shortness of breath; I25.2 Old myocardial infarction; E11.9 Type 2 diabetes mellitus without complications; Z79.4 Long term (current) use of insulin; Z87.891 Personal history of nicotine dependence
CPT/HCPCS: 93005; 94640; 99285; 96374; 36415; 82553; 82550; 85025; 80053; 81001; 84484; 83880; 71045; 93010; J1940; A9270

== ENCOUNTER 2018-09-01 09:34 | Observation (INO) | payer MEDICARE, OTHER ==
--- NOTE | 2018-09-01 09:56 | ER Document Report ---
ED General - General Chief Complaint: General Weakness Stated Complaint: DIFFICULTY BREATHING Time Seen by Provider: 09/01/18 09:40 Primary Care Provider: CALVIN PEDRAZA MD [Primary Care Provider] - Follow up as needed Notes: 68-year-old male presents to the ER complaining of difficulty breathing and right-sided weakness. The patient stated that he went to get out of bed this morning and his right arm and leg felt very weak and heavy. He also is short of breath which is new for him. He stated his symptoms last for about an hour and a half but now have resolved. He has no history of stroke. He had no chest pain. He was short of breath. Patient denies any nausea vomiting. Patient denied any numbness to his right side he just felt very weak and heavy. He denies any abdominal pain. Denies calf pain leg swelling. Stated he went to bed just fine. He did get up to go to the bathroom and did not notice any deficits and awoke with deficits he cannot provide any time throughout the night when he got up. TRAVEL OUTSIDE OF THE [place] IN LAST 30 DAYS: No - Related Data Allergies/Adverse Reactions: No Known Allergies Allergy (Verified 04/12/17 00:15) Past Medical History - Social History Smoking Status: Unknown if Ever Smoked Family History: Reviewed & Not Pertinent - Past Medical History Cardiac Medical History: Reports: Hx Congestive Heart Failure, Hx Heart Attack, Hx Hypercholesterolemia, Hx Hypertension Pulmonary Medical History: Reports: Hx COPD Endocrine Medical History: Reports: Hx Diabetes Mellitus Type 2 - IDDM Renal/ Medical History: Reports: Hx Kidney Stones, Hx Renal Insufficiency. Denies: Hx Peritoneal Dialysis GI Medical History: Reports: Hx Gastroesophageal Reflux Disease Psychiatric Medical History: Reports: Hx Depression Past Surgical History: Reports: Hx Abdominal Surgery - Ernestina fundoplication, Hx Cardiac Surgery - cardioMEMS implanted, Hx Cholecystectomy, Hx Tonsillectomy - Immunizations Hx Diphtheria, Pertussis, Tetanus Vaccination: Yes Hx Pneumococcal Vaccination: 06/30/12 Review of Systems - Review of Systems Constitutional: denies: Chills, Fever Cardiovascular: Dyspnea, Edema. denies: Chest pain Gastrointestinal: denies: Nausea, Vomiting Neurological/Psychological: Weakness, Loss of power. denies: Headaches, Speech impairment, Numbness -: Yes All other systems reviewed and negative Physical Exam - Vital signs Vitals: Resp Pulse Ox 6 L 95 09/01/18 09:57 09/01/18 09:57 - Notes Notes: GENERAL_APPEARANCE: well_nourished, alert, cooperative VITALS: reviewed, see vital signs table. HEAD: no_swelling\tenderness on the head. EYES: PERRL, EOMI, conjunctiva_clear. NOSE: no_nasal_discharge. MOUTH: (-)decreased moisture. THROAT: no_tonsilar_inflammation, no_airway_obstruction. no_lymphadenopathy NECK: supple, no_neck_tenderness, (-)thyromegaly. BACK: no_back_tenderness. CHEST_WALL: no_chest_tenderness. LUNGS: no_wheezing, no_rales, no_rhonchi, (-)accessory muscle use, good air exchange bilateral. HEART: normal_rate, normal_rhythm, normal_S1, normal_S2, (-)S3, (-)S4, no_murmur, no_rub. ABDOMEN: normal_BS, soft, no_abd_tenderness, (-)guarding, (-)rebound, no_organomegaly, no_abd_masses. EXTREMITIES: good pulses in all_extremities, no_swelling\tenderness in the extremities, no_edema. SKIN: warm, dry, good_color, no_rash. MENTAL_STATUS: speech_clear, oriented_X_3, normal_affect, responds_appropriately to questions. NEURO: Neg Motor or Sensory Deficits on exam, CN 2-12 intact, DTR 2+ symmetric x 4, No cerbellar signs - NIH=0 Course - Re-evaluation Re-evalutation: 09/01/18 10:06 The patient is come in for right-sided weakness that lasted for about an hour and a half all. Patient had an episode of bradycardia also on the ER he is having frequent PVCs. At times bigeminy. Watching him closely. 09/01/18 13:23 The patient had a bradycardic episode while he was here. However that quickly resolved and patient was asymptomatic through it. Patient stroke symptoms and right-sided heaviness has stopped only lasted for an hour and a half and has not recurred. Patient was given a full strength aspirin here a CT to see only showed chronic changes. Everything else seems to be no significant abnormalities. Due to the patient's age transient right-sided heaviness concern for possible TIA. I think is appropriate to hospitalize the patient and have an MRI in the morning to rule out any kind of strokelike illness. Scars of bradycardia and trigeminy the patient is asymptomatic at this time he does have occasional shortness of breath but when the patient does bradycardia he does not go into any high-grade AV blocks. He remained stable - Vital Signs Vital signs: Temp Pulse Resp BP Pulse Ox 98 F 67 15 139/87 H 97 09/01/18 10:27 09/01/18 10:27 09/01/18 13:00 09/01/18 11:01 09/01/18 13:00 - Laboratory Result Diagrams: 09/01/18 10:10 09/01/18 10:10 Laboratory results interpreted by me: 09/01/18 10:10 Creatinine 1.71 H Est GFR ( Amer) 48 L Est GFR (Non-Af Amer) 40 L Glucose 125 H - Diagnostic Test Radiology reviewed: Reports reviewed Radiology results interpreted by me: 09/01/18 13:23 Chest X-Ray 09/01/18 09:52 IMPRESSION: Cardiomegaly without pulmonary edema. 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 - EKG Interpretation by Ri EKG shows normal: Sinus rhythm Rate: Bradycardia Rhythm: NSR Additional EKG results interpreted by me: 09/01/18 13:23 Patient has occasional trigeminy and unifocal PVCs. No acute ST abnormality 09/01/18 13:23 Discharge - Discharge Clinical Impression: Right sided weakness, Trigeminy Dyspnea Qualifiers: Dyspnea type: unspecified Qualified Code(s): R06.00 - Dyspnea, unspecified Condition: Good Disposition: ADMITTED OBSERVATION Admitting Provider: Hospitalist Unit Admitted: Telemetry Referrals: CALVIN PEDRAZA MD [Primary Care Provider] - Follow up as needed
[2018-09-01 10:07] LABS: INTERNATIONAL RATION (INR) 0.96; PROTHROMBIN TIME 13.3 SEC (11.4-15.4)
--- NOTE | 2018-09-01 10:27 | EKG REPORT ---
SEVERITY:- ABNORMAL ECG - SINUS RHYTHM VENTRICULAR TRIGEMINY FIRST DEGREE AV BLOCK NONSPECIFIC IVCD WITH LAD BORDERLINE R WAVE PROGRESSION, ANTERIOR LEADS : Confirmed by: Fransisca Antonio MD 01-Sep-2018 10:25:46
[2018-09-01 10:33] LABS: ABSOLUTE EOSINOPHILS # (AUTO) 0.2 10^3/uL (0.0-0.6); ABSOLUTE LYMPHOCYTES (AUTO) 1.6 10^3/uL (0.5-4.7); ABSOLUTE MONOCYTES (AUTO) 0.3 10^3/uL (0.1-1.4); ABSOLUTE NEUT (AUTO) 3.3 10^3/uL (1.7-8.2); BASOPHILS % (AUTO) 0.6 % (0-2); EOSINOPHILS % (AUTO) 3.7 % (0-6); HEMATOCRIT 41.5 % (37.9-51.0); HEMOGLOBIN 14.2 g/dL (13.5-17.0); LYMPHOCYTES % (AUTO) 28.6 % (13-45); MEAN CORPUSCULAR HEMOGLOBIN 32.5 pg (27.0-33.4); MEAN CORPUSCULAR HGB CONC 34.3 g/dL (32.0-36.0); MEAN CORPUSCULAR VOLUME 95 fl (80-97); MONOCYTES % (AUTO) 5.3 % (3-13); PLATELET COUNT 173 10^3/uL (150-450); RED BLOOD COUNT 4.39 10^6/uL (4.35-5.55); RED CELL DISTRIBUTION WIDTH 13.6 % (11.5-14.0); SEGMENTED NEUTROPHILS % (AUTO) 61.8 % (42-78); TOTAL CELLS COUNTED % (AUTO) 100 %; WHITE BLOOD COUNT 5.4 10^3/uL (4.0-10.5)
--- NOTE | 2018-09-01 10:47 | RADIOLOGY REPORT (SQ) ---
EXAM DESCRIPTION: CHEST SINGLE VIEW COMPLETED DATE/TIME: 09/01/2018 10:30 am REASON FOR STUDY: Right sided weakness COMPARISON: 05/20/2018 EXAM PARAMETERS: NUMBER OF VIEWS: One view. TECHNIQUE: Single frontal radiographic view of the chest acquired. RADIATION DOSE: NA LIMITATIONS: None. FINDINGS: LUNGS AND PLEURA: No opacities, masses or pneumothorax. No pleural effusion. MEDIASTINUM AND HILAR STRUCTURES: No masses. Contour normal. HEART AND VASCULAR STRUCTURES: Cardiomegaly. No pulmonary edema. BONES: No acute findings. HARDWARE: None in the chest. OTHER: No other significant finding. IMPRESSION: Cardiomegaly without pulmonary edema. TECHNICAL DOCUMENTATION: JOB ID: [id number] [employer]- All Rights Reserved Reading location - IP/workstation name: [email or web address]
[2018-09-01 10:51] LABS: ANION GAP 9 (5-19); BLOOD UREA NITROGEN 17 mg/dL (7-20); CALCIUM 9.1 mg/dL (8.4-10.2); CARBON DIOXIDE 29 mmol/L (22-30); CHLORIDE 105 mmol/L (98-107); CREATINE KINASE 116 U/L (55-170); GLUCOSE 125 mg/dL (75-110); POTASSIUM 4.4 mmol/L (3.6-5.0); SODIUM 142.6 mmol/L (137-145)
--- NOTE | 2018-09-01 12:30 | RADIOLOGY REPORT (SQ) ---
EXAM DESCRIPTION: CT HEAD WITHOUT COMPLETED DATE/TIME: 09/01/2018 11:50 am REASON FOR STUDY: Right sided weakness COMPARISON: None. TECHNIQUE: Axial images acquired through the brain without intravenous contrast. Images reviewed wi th bone, brain and subdural windows. Additional sagittal and coronal reconstructions were generated. Images stored on PACS. All CT scanners at this facility use dose modulation, iterative reconstruction, and/or weight based d osing when appropriate to reduce radiation dose to as low as reasonably achievable (ALARA). [facility]: Dose Right [facility]: CareDose [facility]: Dose Right [facility]: Teradose 4D [facility]: Coherent Path RADIATION DOSE: CT Rad equipment meets quality standard of care and radiation dose reduction techniq ues were employed. CTDIvol: 53.2 mGy. DLP: 1044 mGy-cm. mGy. LIMITATIONS: None. FINDINGS: VENTRICLES: Normal size and contour. CEREBRUM: There is an old right occipital cortical and subcortical white matter infarct, best shown o n sagittal reconstruction image 31, axial image 13, and coronal image [address] evidence o f acute ischemic change, acute intracranial hemorrhage, mass effect, or midline shift. CEREBELLUM: Punctate lacunar infarct right cerebellar hemisphere axial image 7. No CT evidence of ac mansi posterior fossa ischemic change, acute posterior fossa hemorrhage mass effect or midline shift. EXTRAAXIAL SPACES: No fluid collections. No masses. ORBITS AND GLOBE: No intra- or extraconal masses. Normal contour of globe without masses. CALVARIUM: No fracture. PARANASAL SINUSES: No fluid or mucosal thickening. SOFT TISSUES: No mass or hematoma. OTHER: No other significant finding. 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 COMMENT: Quality ID # [id number]: Final reports with documentation of one or more dose reduction techniques (e.g., Automated exposure control, adjustment of the mA and/or kV according to patient size, use of iterative reconstruction technique) TECHNICAL DOCUMENTATION: JOB ID: [id number] [employer]- All Rights Reserved Reading location - IP/workstation name: [email or web address]
[2018-09-01] MEDS ORDERED: ASPIRIN 81 MG TABLET, CHEWABLE PO ONE (13:20)
[2018-09-01] MEDS ORDERED: DEXTROSE 50%-WATER 25 GM/50 ML DISP.SYRIN IV PRN ×2 (14:19)
[2018-09-01] MEDS ORDERED: DEXTROSE 40% GEL 15 GM TUBE PO PRN ×2 (14:19)
[2018-09-01] MEDS ORDERED: GLUCAGON,HUMAN RECOMB 1 MG INJ IM PRN (14:19)
--- NOTE | 2018-09-01 17:39 | PDOC H&P ---
History of Present Illness Admission Date/PCP: 09/01/18 13:57 CALVIN PEDRAZA MD Patient complains of: numbness in his right side and dizziness History of Present Illness: JORGE WAHL is a 68 year old male who presents to the ER with a complaint of numbness on his right side and dizziness. The dizziness has been intermittent for the past 2 years since his PCP and ordained minister adjusted some of his medications. He was actually placed on an event recorder in May and has not returned it to his ordained minister yet. The dizziness was a little worse today though. The numbness was new today. it started in his toes and ended at his shoulders. nothing made it better or worse. he states it was almost gone when EMS arrived. That was about an hour after starting. he still has some numbness when seen in the ER. On CT in the ER he was found to have an old stroke. He was not aware of any previous CVA Past Medical History Cardiac Medical History: Reports: Congestive Heart Failure, Myocardial Infarction, Hyperlipidema, Hypertension Pulmonary Medical History: Reports: Chronic Obstructive Pulmonary Disease (COPD) Endocrine Medical History: Reports: Diabetes Mellitus Type 2 - IDDM GI Medical History: Reports: Gastroesophageal Reflux Disease Psychiatric Medical History: Reports: Depression Past Surgical History Past Surgical History: Reports: Cholecystectomy, Tonsillectomy Social History Smoking Status: Unknown if Ever Smoked Frequency of Alcohol Use: None Hx Recreational Drug Use: No Hx Prescription Drug Abuse: No - Advance Directive Resuscitation Status: Full Code Family History Family History: DM, Hypertension Parental Family History Reviewed: Yes Children Family History Reviewed: Yes Sibling(s) Family History Reviewed.: Yes Medication/Allergy Home Medications: Aspirin [Ecotrin 81 mg EC Tablet] 81 mg PO DAILY 09/01/18 Atorvastatin Calcium [Lipitor 80 mg Tablet] 80 mg PO QHS 09/01/18 Clonazepam [Klonopin 1 mg Tablet] 1 mg PO BID 09/01/18 Clopidogrel Bisulfate [Plavix 75 mg Tablet] 75 mg PO DAILY 09/01/18 Cyanocobalamin (Vitamin B-12) [B-12] 2,500 mcg SL DAILY 09/01/18 Docusate Sodium [Colace 100 mg Capsule] 100 mg PO DAILY 09/01/18 Ferrous Sulfate [Feosol 325 mg Tablet] 325 mg PO DAILY 09/01/18 Furosemide [Lasix 20 mg Tablet] 20 mg PO BID 09/01/18 Gabapentin [Neurontin 300 mg Capsule] 300 mg PO QHS 09/01/18 Hydralazine HCl [Apresoline 10 mg Tablet] 10 mg PO Q12 09/01/18 Insulin Aspart [Novolog Insulin 100 Unit/1 ml 10 ml] 5 unit SUBCUT AC 09/01/18 Insulin Glargine,Hum.rec.anlog [Basaglar Kwikpen U-100] 30 unit SQ Q12 09/01/18 Isosorbide Mononitrate [Imdur 30 mg Tablet.er] 30 mg PO DAILY 09/01/18 Ivabradine HCl [Corlanor] 7.5 mg PO BID 09/01/18 Lansoprazole [Prevacid 30 Mg Odt Tablet] 30 mg PO Q6AM 09/01/18 Linagliptin [Tradjenta] 5 mg PO DAILY 09/01/18 Magnesium Oxide [Mag-Ox 400 mg Tablet] 400 mg PO BID 09/01/18 Metoprolol Succinate [Toprol XL 100 mg Tablet] 100 mg PO Q12 09/01/18 Multivitamin [Tab-A-Tio (Multiple Vitamin) Tablet] 1 tab PO DAILY 09/01/18 Nortriptyline HCl [Pamelor] 75 mg PO QHS 09/01/18 Prazosin HCl [Minipress] 5 mg PO QHS 09/01/18 Sertraline HCl [Zoloft] 200 mg PO QHS 09/01/18 Spironolactone [Aldactone] 50 mg PO DAILY 09/01/18 Trazodone HCl [Desyrel] 100 mg PO QHS 09/01/18 Allergies/Adverse Reactions: No Known Allergies Allergy (Verified 04/12/17 00:15) Review of Systems Constitutional: PRESENT: weakness, weight loss. ABSENT: chills, fatigue, fever(s), headache(s), night sweats Nose, Mouth, and Throat: ABSENT: sore throat Cardiovascular: ABSENT: chest pain, dyspnea on exertion, edema, orthropnea, palpitations Respiratory: ABSENT: cough Gastrointestinal: ABSENT: abdominal pain, diarrhea, dysphagia, heartburn, nausea, vomiting Integumentary: ABSENT: pruritus, rash Neurological: PRESENT: dizziness, frequent falls, numbness, vertigo. ABSENT: abnormal speech, confusion, convulsions, focal weakness, paresthesias, restless legs Hematologic/Lymphatic: ABSENT: easy bruising, lymphadenopathy Physical Exam Vital Signs: Temp Pulse Resp BP Pulse Ox 97.8 F 63 16 167/82 H 100 09/01/18 17:06 09/01/18 17:06 09/01/18 17:06 09/01/18 17:06 09/01/18 17:06 Intake & Output 08/31/18 09/01/18 09/02/18 06:59 06:59 06:59 Weight 124.2 kg General appearance: PRESENT: no acute distress, cooperative, obese Eye exam: PRESENT: EOMI, PERRLA. ABSENT: scleral icterus Mouth exam: PRESENT: moist, neck supple. ABSENT: dry mucosa Neck exam: PRESENT: full ROM. ABSENT: carotid bruit, JVD, tenderness, thyromegaly, tracheal deviation Respiratory exam: PRESENT: clear to auscultation yani, unlabored. ABSENT: accessory muscle use Cardiovascular exam: PRESENT: irregular rhythm - sinus lewis with bigeminy. ABSENT: gallop, rubs GI/Abdominal exam: PRESENT: normal bowel sounds, soft. ABSENT: distended, mass, tenderness Extremities exam: ABSENT: joint swelling, pedal edema, tenderness Neurological exam: PRESENT: alert, oriented to person, oriented to place, oriented to time, oriented to situation, CN II-XII grossly intact, motor sensory deficit. ABSENT: aphasic Skin exam: PRESENT: dry, normal color, warm Results Laboratory Results: 09/01/18 10:10 09/01/18 10:10 09/01/18 09/01/18 10:10 10:10 WBC 5.4 RBC 4.39 Hgb 14.2 Hct 41.5 MCV 95 MCH 32.5 MCHC 34.3 RDW 13.6 Plt Count 173 Seg Neutrophils % 61.8 Lymphocytes % 28.6 Monocytes % 5.3 Eosinophils % 3.7 Basophils % 0.6 Absolute Neutrophils 3.3 Absolute Lymphocytes 1.6 Absolute Monocytes 0.3 Absolute Eosinophils 0.2 Absolute Basophils 0.0 Sodium 142.6 Potassium 4.4 Chloride 105 Carbon Dioxide 29 Anion Gap 9 BUN 17 Creatinine 1.71 H Est GFR ( Amer) 48 L Est GFR (Non-Af Amer) 40 L Glucose 125 H Calcium 9.1 09/01/18 09/01/18 09:18 10:10 Creatine Kinase 116 Troponin I < 0.012 Impressions: Chest X-Ray 09/01/18 09:52 IMPRESSION: Cardiomegaly without pulmonary edema. 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 Assessment & Plan - Diagnosis (1) Right sided weakness Is this a current diagnosis for this admission?: Yes Plan: will admit to medical services. consider CVA vs TIA. MRI of the head. carotid US, echocardiogram. start on plavix, at the very least he has on old CVA and warrants plavix. also ensure his statin is maximized. (2) Trigeminy Is this a current diagnosis for this admission?: Yes Plan: will get cardiology to evaluate patient. may be part of his dizziness (3) Acute worsening of stage 3 chronic kidney disease Is this a current diagnosis for this admission?: Yes Plan: appears to be at baseline of 1.6-1.8. need to be cautious with nephrotoxic medications. monitor closely. (4) Diabetes mellitus Qualifiers: Diabetes mellitus type: type 2 Diabetes mellitus complication status: with circulatory complication Diabetes mellitus complication detail: with other circulatory complications Is this a current diagnosis for this admission?: Yes Plan: start on SSI and monitor (5) HTN (hypertension) Qualifiers: Hypertension type: essential hypertension Qualified Code(s): I10 - Essential (primary) hypertension Is this a current diagnosis for this admission?: Yes Plan: will allow permissive HTN for now given high likelihood of CVA. will restart home medications after 24-48 hours. monitor closely though (6) Hyperlipidemia Qualifiers: Hyperlipidemia type: mixed hyperlipidemia Qualified Code(s): E78.2 - Mixed hyperlipidemia Is this a current diagnosis for this admission?: Yes Plan: needs to be on statin therapy - Time Time Spent: 50 to 70 Minutes Medications reviewed and adjusted accordingly: Yes Anticipated discharge: Home
[2018-09-01] MEDS: INSULIN REG, HUMAN 100 UNIT/ML 3 ML VIAL (PYX) SUBCUT SCH ×2 (17:44→21:44)
[2018-09-01] MEDS: CLOPIDOGREL BISULFATE 75 MG TABLET PO SCH (18:31)
[2018-09-01] MEDS ORDERED: ATORVASTATIN CALCIUM 80 MG TABLET PO SCH (22:00)
[2018-09-02 05:38] LABS: ABSOLUTE EOSINOPHILS # (AUTO) 0.2 10^3/uL (0.0-0.6); ABSOLUTE LYMPHOCYTES (AUTO) 1.7 10^3/uL (0.5-4.7); ABSOLUTE MONOCYTES (AUTO) 0.4 10^3/uL (0.1-1.4); ABSOLUTE NEUT (AUTO) 3.7 10^3/uL (1.7-8.2); BASOPHILS % (AUTO) 0.5 % (0-2); EOSINOPHILS % (AUTO) 4.1 % (0-6); HEMATOCRIT 44.5 % (37.9-51.0); HEMOGLOBIN 14.9 g/dL (13.5-17.0); LYMPHOCYTES % (AUTO) 28.1 % (13-45); MEAN CORPUSCULAR HEMOGLOBIN 31.7 pg (27.0-33.4); MEAN CORPUSCULAR HGB CONC 33.6 g/dL (32.0-36.0); MEAN CORPUSCULAR VOLUME 94 fl (80-97); MONOCYTES % (AUTO) 6.4 % (3-13); PLATELET COUNT 175 10^3/uL (150-450); RED BLOOD COUNT 4.71 10^6/uL (4.35-5.55); RED CELL DISTRIBUTION WIDTH 13.7 % (11.5-14.0); SEGMENTED NEUTROPHILS % (AUTO) 60.9 % (42-78); TOTAL CELLS COUNTED % (AUTO) 100 %
[2018-09-02 05:55] LABS: ALANINE AMINOTRANSFERASE 40 U/L (21-72); ALBUMIN 4.2 g/dL (3.5-5.0); ALKALINE PHOSPHATASE 67 U/L (38-126); ANION GAP 8 (5-19); ASPARTATE AMINO TRANSFERASE 69 U/L (17-59); BILIRUBIN,DIRECT 0.3 mg/dL (0.0-0.4); BILIRUBIN,TOTAL 0.5 mg/dL (0.2-1.3); BLOOD UREA NITROGEN 19 mg/dL (7-20); CALCIUM 9.3 mg/dL (8.4-10.2); CARBON DIOXIDE 30 mmol/L (22-30); CHLORIDE 104 mmol/L (98-107); CHOLESTEROL 120.09 mg/dL (0-200); GLUCOSE 99 mg/dL (75-110); POTASSIUM 4.1 mmol/L (3.6-5.0); SODIUM 141.6 mmol/L (137-145); TOTAL PROTEIN 7.2 g/dL (6.3-8.2); TRIGLYCERIDES 210 mg/dL (<150)
[2018-09-02 06:06] LABS: DIRECT LDL 64 mg/dL (<100)
[2018-09-02 06:16] LABS: APPEARANCE,URINE CLEAR; BILIRUBIN,URINE NEGATIVE (NEGATIVE); COLOR,URINE YELLOW; GLUCOSE, URINE NEGATIVE (NEGATIVE); KETONES,URINE NEGATIVE (NEGATIVE); LEUKOCYTE ESTERASE,URINE NEGATIVE (NEGATIVE); NITRITE,URINE NEGATIVE (NEGATIVE); PROTEIN,URINE NEGATIVE (NEGATIVE); URINE SPECIFIC GRAVITY 1.013; UROBILINOGEN,URINE NEGATIVE mg/dL (<2.0)
[2018-09-02] MEDS: INSULIN REG, HUMAN 100 UNIT/ML 3 ML VIAL (PYX) SUBCUT SCH ×3 (08:17→15:45)
[2018-09-02] MEDS: CLOPIDOGREL BISULFATE 75 MG TABLET PO SCH (09:13)
[2018-09-02] MEDS ORDERED: ENOXAPARIN SODIUM INJ 40 MG/0.4 ML DISP.SYRIN SUBCUT SCH (10:00)
--- NOTE | 2018-09-02 11:49 | XCELERA REPORT ---
[address] [address] Transthoracic Echocardiogram Report Name: JORGE WAHL Age: 68 yrs Gender: Male : 1950 Patient Status: Inpatient Patient Location: [address] [place], [place] [address] Study Date: 09/01/2018 07:50 PM Height: 71 in Weight: 230 lb BSA: 2.2 m2 Procedure: A two-dimensional transthoracic echocardiogram with color flow and Doppler was performed. Study Quality: Poor. The study was technically difficult with many images being suboptimal in quality. Reason For Study: CVA History: CVA. Ordering Physician: ULISSES RANDALL Performed By: Cari Adan Interpretation Summary There is no obvious cardiac source of embolus noted on this transthoracic echocardiogram. Follow-up with a LORNA is suggested if cardiac source is still suspected. Probably no reional wall motion abnormality.Not a good study to assess for clots,but no obvios clots seen.No LVH.LVEF probably normal at 60%. Doppler measurements suggest impaired left ventricular relaxation, which is associated with grade I/IV or mild diastolic dysfunction The right ventricle is not well visualized secondary to technical limitations Suspect RV enlargement. The left atrial size is normal. There is no evidence of mitral valve prolapse. There is no mitral valve stenosis. Probably trace AR. There is no tricuspid stenosis. There is a trace amount of tricuspid regurgitation RVSP is 33 mm of Hg , with RA mean of 10. There is mild pulmonary hypertension by echo There is no pericardial effusion. There is no obvious cardiac source of embolus noted on this transthoracic echocardiogram. Follow-up with a LORNA is suggested if cardiac source is still suspected MMode/2D Measurements & Calculations RVDd: 3.0 cm LVIDd: 6.2 cm FS: 33.9 % Ao root diam: 3.0 cm IVSd: 0.94 cm LVIDs: 4.1 cm EDV(Teich): 192.8 ml Ao root area: 6.9 cm2 LVPWd: 0.85 cm ESV(Teich): 73.7 ml LA dimension: 3.3 cm EF(Teich): 61.7 % Doppler Measurements & Calculations MV E max roselyn: MV P1/2t max roselyn: Ao V2 max: AI max roselyn: 68.1 cm/sec 70.6 cm/sec 138.1 cm/sec 200.7 cm/sec MV A max roselyn: MV P1/2t: 61.0 msec Ao max PG: AI max P.7 cm/sec MVA(P1/2t): 3.6 cm2 7.6 mmHg 16.2 mmHg MV E/A: 0.70 MV dec slope: AI dec slope: 45.7 cm/sec2 339.0 cm/sec2 AI P1/2t: 1287 msec MV dec time: 0.26 sec LV V1 max PG: PA V2 max: PI end-d roselyn: TR max roselyn: 2.4 mmHg 90.9 cm/sec 95.0 cm/sec 238.9 cm/sec LV V1 max: PA max P.3 mmHg TR max P.8 cm/sec 22.8 mmHg AV P1/2t-pr_phl: MV P1/2t-pr_phl: 1345 msec 61.0 msec Left Ventricle Probably no reional wall motion abnormality.Not a good study to assess for clots,but no obvios clots seen.No LVH.LVEF probably normal at 60%. Doppler measurements suggest impaired left ventricular relaxation, which is associated with grade I/IV or mild diastolic dysfunction. Right Ventricle The right ventricle is not well visualized secondary to technical limitations. Suspect RV enlargement. Atria Right atrium not well visualized secondary to technical limitations. The left atrial size is normal. Mitral Valve There is no evidence of mitral valve prolapse. There is no vegetation seen on the mitral valve. There is no mitral valve stenosis. There is a trace amount of mitral regurgitation. Aortic Valve There is no aortic valve stenosis. Probably trace AR. Tricuspid Valve There is no tricuspid stenosis. There is a trace amount of tricuspid regurgitation. RVSP is 33 mm of Hg , with RA mean of 10. There is mild pulmonary hypertension by echo. Pulmonic Valve There is no pulmonic valvular stenosis. There is a trace amount of pulmonic regurgitation. Great Vessels The aortic root is normal size. The inferior vena cava was not visualized. Effusions There is no pericardial effusion. : ULISSES RANDALL > Fransisca Antonio
--- NOTE | 2018-09-02 12:48 | PDOC TRANSFER SUMMARY ---
General Admission Date/PCP: 09/01/18 13:57 CALVIN PEDRAZA MD Admission Date: 09/01/18 Transfer Date: 09/02/18 Accepting Facility: [facility] Accepting Physician: Dr Baumann Resuscitation Status: Full Code - Transfer Diagnosis (1) Trigeminy Is this a current diagnosis for this admission?: Yes Diagnosis Summary: He has continued to have bradycardia with bigeminy and trigeminy during his admission. HR has ranged from 20's-50's. Patient continues to have dizziness when sitting up and worse with ambulation. He has refused evaluation by our social worker and as such his son has initiated transfer to [facility] where his social worker is located. I feel his cardiac rhythm is the cause for his dizziness and numbness. He is being transferred to [facility] at the request of the patient for further evaluation. (2) Right sided weakness Is this a current diagnosis for this admission?: Yes Diagnosis Summary: Has nearly completely resolved during this admission. He complains of some bilateral numbness in his toes (3) Acute worsening of stage 3 chronic kidney disease Is this a current diagnosis for this admission?: Yes Diagnosis Summary: Renal function has been stable during his admission (4) Diabetes mellitus Is this a current diagnosis for this admission?: Yes Diagnosis Summary: BGL have been stable during his admission. (5) HTN (hypertension) Is this a current diagnosis for this admission?: Yes Diagnosis Summary: Initially his home medications were help due to allowing permissive HTN with the possibility of new CVA. (6) Hyperlipidemia Is this a current diagnosis for this admission?: Yes Diagnosis Summary: Continue statin therapy - Transfer Medications Home Medications: Aspirin [Ecotrin 81 mg EC Tablet] 81 mg PO DAILY 09/01/18 Atorvastatin Calcium [Lipitor 80 mg Tablet] 80 mg PO QHS 09/01/18 Clonazepam [Klonopin 1 mg Tablet] 1 mg PO BID 09/01/18 Clopidogrel Bisulfate [Plavix 75 mg Tablet] 75 mg PO DAILY 09/01/18 Cyanocobalamin (Vitamin B-12) [B-12] 2,500 mcg SL DAILY 09/01/18 Docusate Sodium [Colace 100 mg Capsule] 100 mg PO DAILY 09/01/18 Ferrous Sulfate [Feosol 325 mg Tablet] 325 mg PO DAILY 09/01/18 Furosemide [Lasix 20 mg Tablet] 20 mg PO BID 09/01/18 Gabapentin [Neurontin 300 mg Capsule] 300 mg PO QHS 09/01/18 Hydralazine HCl [Apresoline 10 mg Tablet] 10 mg PO Q12 09/01/18 Insulin Aspart [Novolog Insulin 100 Unit/1 ml 10 ml] 5 unit SUBCUT AC 09/01/18 Insulin Glargine,Hum.rec.anlog [Basaglar Kwikpen U-100] 30 unit SQ Q12 09/01/18 Isosorbide Mononitrate [Imdur 30 mg Tablet.er] 30 mg PO DAILY 09/01/18 Ivabradine HCl [Corlanor] 7.5 mg PO BID 09/01/18 Lansoprazole [Prevacid 30 Mg Odt Tablet] 30 mg PO Q6AM 09/01/18 Linagliptin [Tradjenta] 5 mg PO DAILY 09/01/18 Magnesium Oxide [Mag-Ox 400 mg Tablet] 400 mg PO BID 09/01/18 Metoprolol Succinate [Toprol XL 100 mg Tablet] 100 mg PO Q12 09/01/18 Multivitamin [Tab-A-Tio (Multiple Vitamin) Tablet] 1 tab PO DAILY 09/01/18 Nortriptyline HCl [Pamelor] 75 mg PO QHS 09/01/18 Prazosin HCl [Minipress] 5 mg PO QHS 09/01/18 Sertraline HCl [Zoloft] 200 mg PO QHS 09/01/18 Spironolactone [Aldactone] 50 mg PO DAILY 09/01/18 Trazodone HCl [Desyrel] 100 mg PO QHS 09/01/18 Transfer Medications: Current Medications Atorvastatin Calcium (Lipitor 80 Mg Tablet) 80 mg PO QHS [facility]I Stop: 10/01/18 21:59 Last Admin: 09/01/18 21:32 Dose: 80 mg Documented by: Clopidogrel Bisulfate (Plavix 75 Mg Tablet) 75 mg PO DAILY [facility] Stop: 10/01/18 14:59 Last Admin: 09/02/18 09:13 Dose: 75 mg Documented by: Dextrose (Dextrose Inj 50% Syringe (25 Gm/50 Ml)) 12.5 gm IV PRN PRN; Protocol PRN Reason: FOR BG 50-69 IN ALERT PATIENT Stop: 10/01/18 14:18 Dextrose (Dextrose Inj 50% Syringe (25 Gm/50 Ml)) 25 gm IV PRN PRN; Protocol PRN Reason: PER PROTOCOL Stop: 10/01/18 14:18 Enoxaparin Sodium (Lovenox Inj 40 Mg/0.4 Ml Disp.Syrin) 40 mg SUBCUT DAILY [facility] Stop: 10/02/18 09:59 Last Admin: 09/02/18 09:13 Dose: 40 mg Documented by: Glucagon (Glucagen Inj 1 Mg Vial) 1 mg IM PRN PRN; Protocol PRN Reason: Evaluate for BG < 70 Stop: 10/01/18 14:18 Glucose (Glutose 40% Gel 15 Gm Tube) 15 gm PO PRN PRN; Protocol PRN Reason: FOR BG 50-69 IN ALERT PATIENT Stop: 10/01/18 14:18 Glucose (Glutose 40% Gel 15 Gm Tube) 30 gm PO PRN PRN; Protocol PRN Reason: FOR BG < 50 IN ALERT PATIENT Stop: 10/01/18 14:18 Insulin Human Regular (Humulin R (Pyxis) Insulin 100 Unit/Ml 3ml) 0 - 12 unit SUBCUT ACHS [facility]; Protocol Stop: 10/01/18 15:59 Last Admin: 09/02/18 08:17 Dose: Not Given Documented by: Sodium Chloride (Saline Flush 2.5 Ml Monoject Prefil Syrin) 2.5 ml IV Q8 [facility] Stop: 10/01/18 21:59 Last Admin: 09/02/18 05:46 Dose: 2.5 ml Documented by: - Allergies Allergies/Adverse Reactions: No Known Allergies Allergy (Verified 04/12/17 00:15) - Diet/Activity Discharge Diet: Cardiac, Diabetic Hospital Course Hospital Course: during his admission he has continued to have bradycardia with bigeminy and trigeminy. HR has dropped into the low 20's. Patient still complains of dizziness when sitting and worse when ambulating. His numbness has almost c ompletely resolved. He complains of slight numbness in his toes bilaterally on the day of discharge. CT of the head in the ER did show an old right occipital and right cerebellar infarcts, patient was unaware of these. Physical Exam Vital Signs: Temp Pulse Resp BP Pulse Ox 97.8 F 34 L 20 139/85 H 100 09/02/18 07:58 09/02/18 08:00 09/02/18 08:00 09/02/18 08:00 09/02/18 08:00 Intake & Output 09/01/18 09/02/18 09/03/18 06:59 06:59 06:59 Intake Total 100 Output Total 325 Balance -225 Weight 124.2 kg General appearance: PRESENT: no acute distress, cooperative, obese Eye exam: PRESENT: EOMI, PERRLA. ABSENT: scleral icterus Mouth exam: PRESENT: moist, neck supple Neck exam: PRESENT: full ROM, thyromegaly. ABSENT: JVD, tenderness, tracheal deviation Respiratory exam: PRESENT: clear to auscultation yani, unlabored. ABSENT: accessory muscle use Cardiovascular exam: PRESENT: bradycardia, irregular rhythm GI/Abdominal exam: PRESENT: normal bowel sounds, soft. ABSENT: tenderness Musculoskeletal exam: PRESENT: full ROM Neurological exam: PRESENT: alert, oriented to person, oriented to place, oriented to time, oriented to situation Psychiatric exam: ABSENT: anxious Skin exam: PRESENT: dry, normal color, warm Results Laboratory Results: 09/02/18 05:16 09/02/18 05:16 09/02/18 09/02/18 09/02/18 05:16 05:16 05:43 WBC 6.0 RBC 4.71 Hgb 14.9 Hct 44.5 MCV 94 MCH 31.7 MCHC 33.6 RDW 13.7 Plt Count 175 Seg Neutrophils % 60.9 Lymphocytes % 28.1 Monocytes % 6.4 Eosinophils % 4.1 Basophils % 0.5 Absolute Neutrophils 3.7 Absolute Lymphocytes 1.7 Absolute Monocytes 0.4 Absolute Eosinophils 0.2 Absolute Basophils 0.0 Sodium 141.6 Potassium 4.1 Chloride 104 Carbon Dioxide 30 Anion Gap 8 BUN 19 Creatinine 1.78 H Est GFR ( Amer) 46 L Est GFR (Non-Af Amer) 38 L Glucose 99 Calcium 9.3 Total Bilirubin 0.5 AST 69 H ALT 40 Alkaline Phosphatase 67 Total Protein 7.2 Albumin 4.2 Triglycerides 210 H Cholesterol 120.09 LDL Cholesterol Direct 64 VLDL Cholesterol 42.0 H HDL Cholesterol 30 L Urine Color YELLOW Urine Appearance CLEAR Urine pH 7.0 Ur Specific [place] 1.013 Urine Protein NEGATIVE Urine Glucose (UA) NEGATIVE Urine Ketones NEGATIVE Urine Blood NEGATIVE Urine Nitrite NEGATIVE Ur Leukocyte Esterase NEGATIVE Urine WBC (Auto) 0 Urine RBC (Auto) 4 09/01/18 09/01/18 09:18 10:10 Creatine Kinase 116 Troponin I < 0.012 Impressions: Chest X-Ray 09/01/18 09:52 IMPRESSION: Cardiomegaly without pulmonary edema. 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 Plan Discharge Plan: patient accepted by Kimberlee Baumann. Will transfer when ALS ground available Time Spent: Greater than 30 Minutes
[2018-09-02 13:00] VITALS: BP 164/80
== END 2018-09-02 16:10 | disposition short-term general hospital (02) ==
LOC: ER 09:34 → OBSVTOIN 13:57 → INTOOBSV 13:57 → EH 13:57 → 3W 16:56
PROVIDERS: ADMIT Internal Medicine; ATTEND Internal Medicine
DX: R00.1 Bradycardia, unspecified (principal); R00.8 Other abnormalities of heart beat; R53.1 Weakness; E11.22 Type 2 diabetes mellitus with diabetic chronic kidney disease; N18.3 Chronic kidney disease, stage 3 (moderate); I13.0 Hypertensive heart and chronic kidney disease with heart failure and stage 1 through stage 4 chronic kidney disease, or unspecified chronic kidney disease; I50.9 Heart failure, unspecified; N17.9 Acute kidney failure, unspecified; E78.2 Mixed hyperlipidemia; R20.0 Anesthesia of skin; R29.6 Repeated falls; R63.4 Abnormal weight loss; E11.59 Type 2 diabetes mellitus with other circulatory complications; R06.02 Shortness of breath; I25.2 Old myocardial infarction; Z79.899 Other long term (current) drug therapy; Z79.82 Long term (current) use of aspirin; Z79.02 Long term (current) use of antithrombotics/antiplatelets; Z79.4 Long term (current) use of insulin; Z90.49 Acquired absence of other specified parts of digestive tract; Z82.49 Family history of ischemic heart disease and other diseases of the circulatory system; Z86.73 Personal history of transient ischemic attack (TIA), and cerebral infarction without residual deficits; Z98.890 Other specified postprocedural states
CPT/HCPCS: 93005; 99285; 36415 ×2; 87040; 82962 ×2; 82550; 85025 ×2; 85610; 80048; 80053; 81001; 84484; 83036; 80061; 93306; 71045; 70450; 93010; 97110; 97116; 97163; G0378; A9270 ×4; J1650; J3490 ×2

== ENCOUNTER 2018-09-30 18:11 | Emergency (ER) | payer MEDICARE, OTHER ==
[2018-09-30] MEDS ORDERED: NORMAL SALINE 1000 ML 1,000 ML IV ONE (18:42)
[2018-09-30] MEDS ORDERED: METOCLOPRAMIDE HCL INJ/PF 10 MG/2 ML SDV IV ONE (18:42)
--- NOTE | 2018-09-30 19:01 | ER Document Report ---
ED Medical Screen (RME) - General Chief Complaint: Abdominal Pain Stated Complaint: ABDOMINAL PAIN Time Seen by Provider: 09/30/18 18:55 Primary Care Provider: CALVIN PEDRAZA MD [Primary Care Provider] - Follow up as needed TRAVEL OUTSIDE OF THE [place] IN LAST 30 DAYS: No - HPI Notes: 09/30/18 18:59 Patient is a 68-year-old male with a significant cardiac history who presents emergency department complaining of right upper quadrant/upper abdominal pain that is worse with movement and pushing in that area. Patient states that the pain originally started in his back, but made its way around to the abdomen. He does report a history of a cholecystectomy. He is otherwise eating and drinking without any difficulties or changes in his symptoms. He is urinating normally and having normal bowel movements every 1-2 days. Denies drug allergies. Denies any headache, fever, URI, sore throat, chest pain, palpitations, syncope, cough, shortness of breath, wheeze, dyspnea, nausea/vomiting/diarrhea, urinary retention, dysuria, hematuria, or rash. I have treated and performed a rapid initial assessment of this patient. A comprehensive ED assessment and evaluation of the patient, analysis of test results and completion of medical decision making process will be conducted by additional ED providers. PHYSICAL EXAMINATION: GENERAL: Well-appearing, well-nourished and in no acute distress. A&Ox4. Answers questions appropriately. LUNGS: Breath sounds clear to auscultation bilaterally and equal. No wheezes rales or rhonchi. HEART: Regular rate and rhythm without murmurs, rubs, gallops. ABDOMEN: Soft, nondistended abdomen. No guarding, no rebound. Normal bowel sounds present. No CVA tenderness bilaterally. + Reproducible epigastric tenderness (cannot elicit thorough abd exam w/o table, however). Extremities: No cyanosis, clubbing, or edema b/l. NEUROLOGICAL: Normal speech, normal gait. PSYCH: Normal mood, normal affect. - Related Data Allergies/Adverse Reactions: No Known Allergies Allergy (Verified 09/30/18 18:13) Past Medical History - Past Medical History Cardiac Medical History: Reports: Hx Congestive Heart Failure, Hx Heart Attack, Hx Hypercholesterolemia, Hx Hypertension Pulmonary Medical History: Reports: Hx COPD Endocrine Medical History: Reports: Hx Diabetes Mellitus Type 2 - IDDM Renal/ Medical History: Reports: Hx Kidney Stones, Hx Renal Insufficiency. Denies: Hx Peritoneal Dialysis GI Medical History: Reports: Hx Gastroesophageal Reflux Disease Psychiatric Medical History: Reports: Hx Depression Past Surgical History: Reports: Hx Abdominal Surgery - Ernestina fundoplication, Hx Cardiac Surgery - cardioMEMS implanted, Hx Cholecystectomy, Hx Tonsillectomy - Immunizations Hx Diphtheria, Pertussis, Tetanus Vaccination: Yes Physical Exam - Vital signs Vitals: Temp Pulse Resp BP Pulse Ox 98.1 F 80 18 151/92 H 98 09/30/18 18:15 09/30/18 18:15 09/30/18 18:15 09/30/18 18:15 09/30/18 18:15 Course - Vital Signs Vital signs: Temp Pulse Resp BP Pulse Ox 98.1 F 80 18 151/92 H 98 09/30/18 18:15 09/30/18 18:15 09/30/18 18:15 09/30/18 18:15 09/30/18 18:15 Doctor's Discharge - Discharge Referrals: CALVIN PEDRAZA MD [Primary Care Provider] - Follow up as needed
[2018-09-30 19:47] LABS: ABSOLUTE EOSINOPHILS # (AUTO) 0.3 10^3/uL (0.0-0.6); ABSOLUTE LYMPHOCYTES (AUTO) 1.4 10^3/uL (0.5-4.7); ABSOLUTE MONOCYTES (AUTO) 0.4 10^3/uL (0.1-1.4); ABSOLUTE NEUT (AUTO) 3.8 10^3/uL (1.7-8.2); BASOPHILS % (AUTO) 0.3 % (0-2); EOSINOPHILS % (AUTO) 4.4 % (0-6); HEMATOCRIT 44.3 % (37.9-51.0); HEMOGLOBIN 15.1 g/dL (13.5-17.0); LYMPHOCYTES % (AUTO) 24.7 % (13-45); MEAN CORPUSCULAR HGB CONC 34.1 g/dL (32.0-36.0); MEAN CORPUSCULAR VOLUME 94 fl (80-97); MONOCYTES % (AUTO) 6.5 % (3-13); PLATELET COUNT 199 10^3/uL (150-450); RED BLOOD COUNT 4.71 10^6/uL (4.35-5.55); RED CELL DISTRIBUTION WIDTH 13.4 % (11.5-14.0); SEGMENTED NEUTROPHILS % (AUTO) 64.1 % (42-78); TOTAL CELLS COUNTED % (AUTO) 100 %; WHITE BLOOD COUNT 5.9 10^3/uL (4.0-10.5)
[2018-09-30 19:55] LABS: APPEARANCE,URINE CLEAR; BILIRUBIN,URINE NEGATIVE (NEGATIVE); COLOR,URINE YELLOW; GLUCOSE, URINE NEGATIVE (NEGATIVE); KETONES,URINE NEGATIVE (NEGATIVE); LEUKOCYTE ESTERASE,URINE NEGATIVE (NEGATIVE); NITRITE,URINE NEGATIVE (NEGATIVE); PROTEIN,URINE NEGATIVE (NEGATIVE); URINE SPECIFIC GRAVITY 1.023
[2018-09-30 20:04] LABS: ALANINE AMINOTRANSFERASE 56 U/L (21-72); ALBUMIN 4.2 g/dL (3.5-5.0); ALKALINE PHOSPHATASE 80 U/L (38-126); ANION GAP 7 (5-19); ASPARTATE AMINO TRANSFERASE 72 U/L (17-59); BILIRUBIN,DIRECT 0.3 mg/dL (0.0-0.4); BILIRUBIN,TOTAL 0.5 mg/dL (0.2-1.3); BLOOD UREA NITROGEN 22 mg/dL (7-20); CALCIUM 9.4 mg/dL (8.4-10.2); CARBON DIOXIDE 29 mmol/L (22-30); CHLORIDE 106 mmol/L (98-107); GLUCOSE 108 mg/dL (75-110); POTASSIUM 4.2 mmol/L (3.6-5.0); SODIUM 142.4 mmol/L (137-145); TOTAL PROTEIN 7.7 g/dL (6.3-8.2)
--- NOTE | 2018-09-30 21:08 | ER Document Report ---
ED General - General Chief Complaint: Abdominal Pain Stated Complaint: ABDOMINAL PAIN Time Seen by Provider: 09/30/18 18:55 Primary Care Provider: CALVIN PEDRAZA MD [Primary Care Provider] - Follow up as needed Mode of Arrival: Ambulatory Information source: Patient TRAVEL OUTSIDE OF THE [place] IN LAST 30 DAYS: No - HPI Patient complains to provider of: Right upper quadrant pain, right flank pain, right back pain Onset: Other - Symptoms in some form or fashion the past couple of weeks Onset/Duration: Waxing and waning Quality of pain: Sharp Severity: Severe Associated symptoms: denies: Chills, Fever Exacerbated by: Movement, Coughing, Deep breathing Relieved by: Denies - Related Data Allergies/Adverse Reactions: No Known Allergies Allergy (Verified 09/30/18 18:13) Past Medical History - General Information source: Patient - Social History Smoking Status: Former Smoker Family History: Reviewed & Not Pertinent, DM, Hypertension Patient has suicidal ideation: No Patient has homicidal ideation: No - Past Medical History Cardiac Medical History: Reports: Hx Congestive Heart Failure, Hx Heart Attack, Hx Hypercholesterolemia, Hx Hypertension Pulmonary Medical History: Reports: Hx COPD Endocrine Medical History: Reports: Hx Diabetes Mellitus Type 2 - IDDM Renal/ Medical History: Reports: Hx Kidney Stones, Hx Renal Insufficiency. Denies: Hx Peritoneal Dialysis GI Medical History: Reports: Hx Gastroesophageal Reflux Disease Psychiatric Medical History: Reports: Hx Depression Past Surgical History: Reports: Hx Abdominal Surgery - Ernestina fundoplication, Hx Cardiac Surgery - cardioMEMS implanted, Hx Cholecystectomy, Hx Tonsillectomy - Immunizations Hx Diphtheria, Pertussis, Tetanus Vaccination: Yes Hx Pneumococcal Vaccination: 06/30/12 Review of Systems - Review of Systems Notes: Constitutional: No fevers. No chills. EENT: No eye redness. No eye pain. No ear pain. No sore throat. Cardiovascular: No chest pain. No palpitations. Respiratory: No cough. No shortness of breath. No respiratory distress. Gastrointestinal: Positive for abdominal pain. No nausea, vomiting, or diarrhea. Positive for right flank pain Genitourinary: Atraumatic. No lesions. No pain. No discharge. Musculoskeletal: Atraumatic. No swelling. No deformities. Skin: No rash or lesions. Lymphatic: No swollen lymph nodes. Neurologic: No headache. No syncope. Psychiatric: No suicidal or homicidal ideation. Physical Exam - Vital signs Vitals: Temp Pulse Resp BP Pulse Ox 98.1 F 80 18 151/92 H 98 09/30/18 18:15 09/30/18 18:15 09/30/18 18:15 09/30/18 18:15 09/30/18 18:15 - Notes Notes: General: Well-developed, well-nourished. In no acute distress. Non-toxic appearing. Cardiac: Well-perfused. Regular rate and rhythm. No murmurs, rubs, or gallops. Pulmonary: No respiratory distress. No cyanosis. Bilateral lung bear are clear to auscultation. Abdominal: Non-distended. Non-rigid. Bowels sounds are present in all four quadrants. No guarding or rebound. Mild tenderness in the right upper quadrant region. HEENT: Head is atraumatic. Conjunctivae not reddened. No tearing. PERRL. EOMI. Orbits atraumatic. No periorbital swelling or erythema. Oropharynx is without erythema, swelling, or exudates. Neck: Supple. No adenopathy. No meningismus. Dermatologic: Warm with good turgor. No rash. Atraumatic. Chest: Atraumatic. No chest wall tenderness to palpation. Musculoskeletal: Right-sided posterior chest wall tenderness. No CVA tenderness. Genitourinary: Examination deferred Neurologic: No gross neurologic deficits. Psychiatric: Normal mood. Course - Re-evaluation Re-evalutation: 09/30/18 21:07 Patient has normal vital signs. This pain seems to be fairly movement dependent and apparently is sharp in nature with movement coughing taking a deep breath. Sounds like it is been going on quite a while. Doubt that this is like a retained stone in the common bile duct. History of cholecystectomy. Question possible kidney stone, pancreatitis, atypical cardiac presentation - Vital Signs Vital signs: Temp Pulse Resp BP Pulse Ox 98.1 F 80 18 151/92 H 98 09/30/18 18:15 09/30/18 18:15 09/30/18 18:15 09/30/18 18:15 09/30/18 18:15 - Laboratory Result Diagrams: 09/30/18 19:31 09/30/18 19:31 Laboratory results interpreted by me: 09/30/18 09/30/18 19:31 19:31 BUN 22 H Creatinine 1.80 H Est GFR ( Amer) 45 L Est GFR (Non-Af Amer) 38 L AST 72 H Urine Urobilinogen 2.0 H - Diagnostic Test Radiology reviewed: Reports reviewed - EKG Interpretation by Me EKG shows normal: Sinus rhythm Rate: Normal Rhythm: PVC's Discharge - Discharge Clinical Impression: Chronic kidney disease Qualifiers: Chronic kidney disease stage: unspecified stage Qualified Code(s): N18.9 - Chronic kidney disease, unspecified Abdominal pain Qualifiers: Abdominal location: generalized Qualified Code(s): R10.84 - Generalized abdominal pain Constipation Qualifiers: Constipation type: unspecified constipation type Qualified Code(s): K59.00 - Constipation, unspecified Condition: Good Instructions: Abdominal Pain ([facility]), Bulk Laxatives, Low-Fat Diet ([facility]) Additional Instructions: Please add MiraLAX and magnesium citrate to help clear up some of the c onstipation is developed in your abdomen, follow-up with your primary care doctor in the next 1-2 days. Referrals: CALVIN PEDRAZA MD [Primary Care Provider] - Follow up as needed Print Language: Swedish
--- NOTE | 2018-09-30 22:17 | RADIOLOGY REPORT (SQ) ---
EXAM DESCRIPTION: CT ABDOMEN PELVIS WITHOUT IV CONTRAST COMPLETED DATE/TME: 09/30/2018 20:59 CLINICAL HISTORY: 68 years, Male, right flank pain to abdomen COMPARISON: 02/17/2018 CT TECHNIQUE: 415 Images stored on PACS. All CT scanners at this facility use dose modulation, iterative reconstruction, and/or weight based dosing when appropriate to reduce radiation dose to as low as reasonably achievable (ALARA). [facility]: Dose Right [facility]: CareDose [facility]: Dose Right [facility]: Teradose 4D [facility]: [employer] LIMITATIONS: None. FINDINGS: Visualized lung bases are unremarkable. Osseous structures are grossly intact. Small hiatal hernia. Limited evaluation of the liver, spleen, adrenal glands, pancreas, kidneys are unremarkable. No gross evidence for bowel obstruction. Abundant stool in the colon. No free air or free fluid. IMPRESSION: Abundant stool in the colon TECHNICAL DOCUMENTATION: Quality ID # 436: Final reports with documentation of one or more dose reduction techniques (e.g., Automated exposure control, adjustment of the mA and/or kV according to patient size, use of iterative reconstruction technique) copyright 2011 [employer]- All Rights Reserved
--- NOTE | 2018-09-30 22:22 | RADIOLOGY REPORT (SQ) ---
EXAM DESCRIPTION: XR CHEST 2 VIEWS COMPLETED DATE/TME: 09/30/2018 21:04 CLINICAL HISTORY: 68 years, Male, chest pain/abdominal pain COMPARISON: 09/01/2018 chest NUMBER OF VIEWS: 2 TECHNIQUE: 2 view chest LIMITATIONS: None. FINDINGS: Heart size is stable. Stable postsurgical change. Lungs are clear. No pneumothorax IMPRESSION: No acute cardiopulmonary process copyright 2010 [employer]- All Rights Reserved
[2018-09-30 23:36] VITALS: BP 118/70
--- NOTE | 2018-10-01 07:56 | EKG REPORT ---
SEVERITY:- ABNORMAL ECG - SINUS RHYTHM VENTRICULAR PREMATURE COMPLEX NONSPECIFIC IVCD WITH LAD PROBABLE INFERIOR INFARCT, OLD CONSIDER ANTERIOR INFARCT : Confirmed by: Gary Pearson MD 01-Oct-2018 07:55:43
== END 2018-09-30 23:40 | disposition home or self-care (01) ==
LOC: ER 18:11
DX: K59.00 Constipation, unspecified (principal); I12.9 Hypertensive chronic kidney disease with stage 1 through stage 4 chronic kidney disease, or unspecified chronic kidney disease; E11.22 Type 2 diabetes mellitus with diabetic chronic kidney disease; N18.9 Chronic kidney disease, unspecified; I49.3 Ventricular premature depolarization; J44.9 Chronic obstructive pulmonary disease, unspecified; M54.9 Dorsalgia, unspecified; R10.84 Generalized abdominal pain; Z90.49 Acquired absence of other specified parts of digestive tract; Z87.891 Personal history of nicotine dependence
CPT/HCPCS: 36415; 71046; 74176; 80053; 81001; 83690; 84484; 85025; 93005; 93010; 99285

== ENCOUNTER → 2018-12-30 | Outpatient (CLI) | payer MEDICARE, OTHER ==
[2018-12-30 17:26] LABS: HEMATOCRIT 44.3 % (37.9-51.0); HEMOGLOBIN 14.6 g/dL (13.5-17.0); MEAN CORPUSCULAR HEMOGLOBIN 30.9 pg (27.0-33.4); MEAN CORPUSCULAR VOLUME 94 fl (80-97); PLATELET COUNT 189 10^3/uL (150-450); RED BLOOD COUNT 4.74 10^6/uL (4.35-5.55); RED CELL DISTRIBUTION WIDTH 13.6 % (11.5-14.0); WHITE BLOOD COUNT 4.7 10^3/uL (4.0-10.5)
[2018-12-30 17:28] LABS: APPEARANCE,URINE CLEAR; BILIRUBIN,URINE NEGATIVE (NEGATIVE); COLOR,URINE YELLOW; GLUCOSE, URINE NEGATIVE (NEGATIVE); KETONES,URINE NEGATIVE (NEGATIVE); LEUKOCYTE ESTERASE,URINE NEGATIVE (NEGATIVE); NITRITE,URINE NEGATIVE (NEGATIVE); PROTEIN,URINE 30 mg/dL (NEGATIVE); URINE SPECIFIC GRAVITY 1.024; UROBILINOGEN,URINE NEGATIVE mg/dL (<2.0)
[2018-12-30 17:53] LABS: ANION GAP 10 (5-19); BLOOD UREA NITROGEN 21 mg/dL (7-20); CALCIUM 9.2 mg/dL (8.4-10.2); CARBON DIOXIDE 28 mmol/L (22-30); CHLORIDE 103 mmol/L (98-107); GLUCOSE 124 mg/dL (75-110); PHOSPHORUS 3.4 mg/dL (2.5-4.5); POTASSIUM 4.2 mmol/L (3.6-5.0); SODIUM 140.7 mmol/L (137-145)
== END ==
LOC: OD 16:26
PROVIDERS: ATTEND Physician Assistant Medical
DX: E11.22 Type 2 diabetes mellitus with diabetic chronic kidney disease (principal); N18.3 Chronic kidney disease, stage 3 (moderate); R80.9 Proteinuria, unspecified; R31.9 Hematuria, unspecified
CPT/HCPCS: 36415; 80048; 81001; 83970; 84100; 85027

== ENCOUNTER 2019-03-18 12:41 | Emergency (ER) | payer MEDICARE, OTHER ==
--- NOTE | 2019-03-18 13:14 | ER Document Report ---
ED Medical Screen (RME) - General Chief Complaint: Dizziness Stated Complaint: DIZZINESS Time Seen by Provider: 03/18/19 13:05 Primary Care Provider: HAKEEM DEWITT PA-C [Primary Care Provider] - Follow up as needed Notes: Patient is a 68-year-old male who presents the emergency department with a chief complaint of dizziness. He is a diabetic and he states that this morning 1 of his glucometer is rather low and another glucometer read that his blood sugar was 217. He took his Lasgolar, his diabetic medication and states that the dizziness is gradually subsiding. He denies any weakness. Exam: Strength 5 out of 5 in all extremities. Blood glucose here in the emergency department is 147. I have greeted and performed a rapid initial assessment of this patient. A comprehensive ED assessment and evaluation of the patient, analysis of test results and completion of medical decision making process will be conducted by an additional ED providers. TRAVEL OUTSIDE OF THE [place] IN LAST 30 DAYS: No - Related Data Allergies/Adverse Reactions: No Known Allergies Allergy (Verified 09/30/18 18:13) Past Medical History - Past Medical History Cardiac Medical History: Reports: Hx Congestive Heart Failure, Hx Heart Attack, Hx Hypercholesterolemia, Hx Hypertension Pulmonary Medical History: Reports: Hx COPD Endocrine Medical History: Reports: Hx Diabetes Mellitus Type 2 - IDDM Renal/ Medical History: Reports: Hx Kidney Stones, Hx Renal Insufficiency. Denies: Hx Peritoneal Dialysis GI Medical History: Reports: Hx Gastroesophageal Reflux Disease Psychiatric Medical History: Reports: Hx Depression Past Surgical History: Reports: Hx Abdominal Surgery - Ernestina fundoplication, Hx Cardiac Surgery - cardioMEMS implanted, Hx Cholecystectomy, Hx Tonsillectomy - Immunizations Hx Diphtheria, Pertussis, Tetanus Vaccination: Yes Physical Exam - Vital signs Vitals: Temp Pulse Resp BP Pulse Ox 98.5 F 85 17 173/107 H 97 03/18/19 12:49 03/18/19 12:49 03/18/19 12:49 03/18/19 12:49 03/18/19 12:49 Course - Vital Signs Vital signs: Temp Pulse Resp BP Pulse Ox 98.5 F 85 17 173/107 H 97 03/18/19 12:49 03/18/19 12:49 03/18/19 12:49 03/18/19 12:49 03/18/19 12:49 Doctor's Discharge - Discharge Referrals: HAKEEM DEWITT PA-C [Primary Care Provider] - Follow up as needed
[2019-03-18 14:59] LABS: ABSOLUTE EOSINOPHILS # (AUTO) 0.2 10^3/uL (0.0-0.6); ABSOLUTE LYMPHOCYTES (AUTO) 1.5 10^3/uL (0.5-4.7); ABSOLUTE MONOCYTES (AUTO) 0.3 10^3/uL (0.1-1.4); ABSOLUTE NEUT (AUTO) 3.3 10^3/uL (1.7-8.2); BASOPHILS % (AUTO) 0.7 % (0-2); EOSINOPHILS % (AUTO) 3.4 % (0-6); HEMATOCRIT 44.1 % (37.9-51.0); HEMOGLOBIN 14.8 g/dL (13.5-17.0); LYMPHOCYTES % (AUTO) 28.2 % (13-45); MEAN CORPUSCULAR HEMOGLOBIN 31.2 pg (27.0-33.4); MEAN CORPUSCULAR HGB CONC 33.5 g/dL (32.0-36.0); MEAN CORPUSCULAR VOLUME 93 fl (80-97); MONOCYTES % (AUTO) 6.5 % (3-13); PLATELET COUNT 194 10^3/uL (150-450); RED BLOOD COUNT 4.74 10^6/uL (4.35-5.55); RED CELL DISTRIBUTION WIDTH 13.6 % (11.5-14.0); SEGMENTED NEUTROPHILS % (AUTO) 61.2 % (42-78); TOTAL CELLS COUNTED % (AUTO) 100 %; WHITE BLOOD COUNT 5.3 10^3/uL (4.0-10.5)
[2019-03-18 15:17] LABS: ALBUMIN 4.2 g/dL (3.5-5.0); ALKALINE PHOSPHATASE 79 U/L (38-126); ANION GAP 8 (5-19); ASPARTATE AMINO TRANSFERASE 56 U/L (17-59); BILIRUBIN,DIRECT 0.1 mg/dL (0.0-0.4); BILIRUBIN,TOTAL 0.4 mg/dL (0.2-1.3); BLOOD UREA NITROGEN 11 mg/dL (7-20); CALCIUM 9.4 mg/dL (8.4-10.2); CARBON DIOXIDE 29 mmol/L (22-30); CHLORIDE 105 mmol/L (98-107); CREATINE KINASE 234 U/L (55-170); GLUCOSE 109 mg/dL (75-110); POTASSIUM 4.3 mmol/L (3.6-5.0); TOTAL PROTEIN 7.4 g/dL (6.3-8.2)
[2019-03-18 15:32] LABS: CREATINE KINASE MB 1.75 ng/mL (<4.55)
[2019-03-18 15:37] LABS: TROPONIN I < 0.012 ng/mL
--- NOTE | 2019-03-18 17:02 | ER Document Report ---
ED General - General Chief Complaint: Dizziness Stated Complaint: DIZZINESS Time Seen by Provider: 03/18/19 13:05 Primary Care Provider: HAKEEM DEWITT PA-C [Primary Care Provider] - Follow up as needed Mode of Arrival: Ambulatory Information source: Patient Notes: This is a 68-year-old patient with diabetes presented to the emergency department with complaint of feeling weak and dizzy when he woke up. He states he took his glucose at home and it read low. He states he checked it on a second meter and it read 217. He reports that he had resolution of his symptoms so he decided not to come to the hospital. At approximately noon today he had another episode of dizziness and decided to come for evaluation. He was seen by the provider in triage who initiated work-up. He denies any recent illness, chest pain, shortness of breath, nausea, vomiting or diarrhea. TRAVEL OUTSIDE OF THE [place] IN LAST 30 DAYS: No - Related Data Allergies/Adverse Reactions: No Known Allergies Allergy (Verified 09/30/18 18:13) Past Medical History - General Information source: Patient - Social History Smoking Status: Former Smoker Frequency of alcohol use: None Drug Abuse: None Family History: Reviewed & Not Pertinent, DM, Hypertension Patient has suicidal ideation: No Patient has homicidal ideation: No - Past Medical History Cardiac Medical History: Reports: Hx Congestive Heart Failure, Hx Heart Attack, Hx Hypercholesterolemia, Hx Hypertension Pulmonary Medical History: Reports: Hx COPD Endocrine Medical History: Reports: Hx Diabetes Mellitus Type 2 - IDDM Renal/ Medical History: Reports: Hx Kidney Stones, Hx Renal Insufficiency. Denies: Hx Peritoneal Dialysis GI Medical History: Reports: Hx Gastroesophageal Reflux Disease Psychiatric Medical History: Reports: Hx Depression Past Surgical History: Reports: Hx Abdominal Surgery - Ernestina fundoplication, Hx Cardiac Surgery - cardioMEMS implanted, Hx Cholecystectomy, Hx Tonsillectomy - Immunizations Hx Diphtheria, Pertussis, Tetanus Vaccination: Yes Hx Pneumococcal Vaccination: 06/30/12 Review of Systems - Review of Systems Constitutional: Weakness EENT: No symptoms reported Cardiovascular: No symptoms reported Respiratory: No symptoms reported Gastrointestinal: No symptoms reported Genitourinary: No symptoms reported Male Genitourinary: No symptoms reported Musculoskeletal: No symptoms reported Skin: No symptoms reported Hematologic/Lymphatic: No symptoms reported Neurological/Psychological: Other - Dizzy Physical Exam - Vital signs Vitals: Temp Pulse Resp BP Pulse Ox 98.5 F 85 17 173/107 H 97 03/18/19 12:49 03/18/19 12:49 03/18/19 12:49 03/18/19 12:49 03/18/19 12:49 - Notes Notes: PHYSICAL EXAMINATION: GENERAL: Well-appearing, well-nourished and in no acute distress. HEAD: Atraumatic, normocephalic. EYES: Pupils equal round and reactive to light, extraocular movements intact, sclera anicteric, conjunctiva are normal. ENT: Nares patent, oropharynx clear without exudates. Moist mucous membranes. NECK: Normal range of motion, supple without lymphadenopathy LUNGS: Breath sounds clear to auscultation bilaterally and equal. No wheezes rales or rhonchi. HEART: Regular rate and rhythm without murmurs ABDOMEN: Soft, nontender, nondistended abdomen. No guarding, no rebound. No masses appreciated. Musculoskeletal: Normal range of motion, no pitting or edema. No cyanosis. NEUROLOGICAL: Cranial nerves grossly intact. Normal speech, normal gait. Normal sensory, motor exams PSYCH: Normal mood, normal affect. SKIN: Warm, Dry, normal turgor, no rashes or lesions noted. Course - Re-evaluation Re-evalutation: 03/18/19 17:02 Patient allowed us to obtain blood work only, he denied an IV placement or chest x-ray. Patient appears well, nontoxic and vital signs are within normal limits. He was seen by provider in triage who initiated his work-up. His blood glucose is in acceptable limits here and he has no evidence of hypo-or hyperglycemia. Multiple orders are placed by triage provider, patient declined all of this stating that he just wants his blood pressure and blood sugar checked. He did agree to have labs drawn. Lab work-up was unremarkable, glucose was 234. Patient was allowed to eat per his request. Patient encouraged to continue compliance with his medication regimen as prescribed by his primary care provider and have close follow-up with them. Patient was encouraged to return to the emergency department for any new or worsening symptoms or return of any episode of severe hypoglycemia. Patient is agreeable to this plan and wishes to go home. - Vital Signs Vital signs: Temp Pulse Resp BP Pulse Ox 98.1 F 68 16 155/78 H 98 03/18/19 17:04 03/18/19 17:04 03/18/19 17:04 03/18/19 17:04 03/18/19 17:04 - Laboratory Result Diagrams: 03/18/19 14:45 03/18/19 14:45 Laboratory results interpreted by me: 03/18/19 03/18/19 13:05 14:45 Creatinine 1.46 H Est GFR ( Amer) 58 L Est GFR (MDRD) Non-Af 48 L POC Glucose 142 H Creatine Kinase 234 H Discharge - Discharge Clinical Impression: Hypoglycemia, Dizziness Condition: Stable Disposition: HOME, SELF-CARE Additional Instructions: You are seen in the emergency department today for complaints of dizziness after having an episode of low blood sugar at home. Your blood sugars were normal here in the emergency department on 2 separate checks. You have stated that all of your symptoms have resolved. Please take all medications as prescribed. Please follow-up with your primary care provider regarding today's concerns. Return to the emergency department for any new or worsening symptoms. Referrals: HAKEEM DEWITT PA-C [Primary Care Provider] - Follow up as needed
[2019-03-18 17:06] VITALS: BP 155/78
== END 2019-03-18 17:11 | disposition home or self-care (01) ==
LOC: ER 12:41
DX: E11.649 Type 2 diabetes mellitus with hypoglycemia without coma (principal); R42 Dizziness and giddiness; R53.1 Weakness; I10 Essential (primary) hypertension; J44.9 Chronic obstructive pulmonary disease, unspecified; Z87.891 Personal history of nicotine dependence
CPT/HCPCS: 36415; 80053; 82550; 82553; 82962; 84484; 85025

== ENCOUNTER 2019-04-14 14:29 | Observation (INO) | payer MEDICARE, OTHER ==
--- NOTE | 2019-04-14 15:05 | ER Document Report ---
ED General - General Chief Complaint: Foot Pain Stated Complaint: DIZZINESS Time Seen by Provider: 04/14/19 14:40 Notes: Patient is a 68-year-old male who presents to the emergency department with a chief complaint of left foot weakness. Patient has a history of diabetic neuropathy. He states that he felt numbness in his left foot that was worse yesterday. He saw his primary care provider. They told him that it was diabetic neuropathy. This morning he was trying to keep his shoe on but it kept falling off. He states that his left foot is weaker than the right. TRAVEL OUTSIDE OF THE [place] IN LAST 30 DAYS: No - Related Data Allergies/Adverse Reactions: No Known Allergies Allergy (Verified 09/30/18 18:13) Past Medical History - Social History Smoking Status: Former Smoker Chew tobacco use (# tins/day): No Frequency of alcohol use: None Drug Abuse: None Family History: Reviewed & Not Pertinent, DM, Hypertension Patient has suicidal ideation: No Patient has homicidal ideation: No - Past Medical History Cardiac Medical History: Reports: Hx Congestive Heart Failure, Hx Heart Attack, Hx Hypercholesterolemia, Hx Hypertension Pulmonary Medical History: Reports: Hx COPD Endocrine Medical History: Reports: Hx Diabetes Mellitus Type 2 - IDDM Renal/ Medical History: Reports: Hx Kidney Stones, Hx Renal Insufficiency. Denies: Hx Peritoneal Dialysis GI Medical History: Reports: Hx Gastroesophageal Reflux Disease Psychiatric Medical History: Reports: Hx Depression Past Surgical History: Reports: Hx Abdominal Surgery - Ernestina fundoplication, Hx Cardiac Surgery - cardioMEMS implanted, Hx Cholecystectomy, Hx Tonsillectomy - Immunizations Hx Diphtheria, Pertussis, Tetanus Vaccination: Yes Hx Pneumococcal Vaccination: 06/30/12 Review of Systems - Review of Systems Notes: REVIEW OF SYSTEMS: CONSTITUTIONAL : Denies recent illness. Denies recent unintentional weight loss. Denies fever, chills, or sweats. EENT: Denies eye, ear, throat, or mouth pain, discharge, or symptoms. Denies nasal or sinus congestion. CARDIOVASCULAR: Denies chest pain. RESPIRATORY: Denies shortness of breath, cough, congestion, difficulty breathing, or wheezing. GASTROINTESTINAL: Denies nausea, vomiting, and diarrhea. Denies abdominal pain. Denies constipation. GENITOURINARY: Denies difficulty urinating, burning, blood in urine, urgency or frequency. MUSCULOSKELETAL: Denies neck and back pain. Denies joint pain or swelling. SKIN: Denies rash, itchiness, or lesions HEMATOLOGIC : Denies easy bruising or bleeding. LYMPHATIC: Denies swollen, painful, enlarged glands. NEUROLOGICAL: See HPI. PSYCHIATRIC: Denies stress, anxiety, alteration in sleep patterns, or depression. All other systems reviewed and negative. Physical Exam - Vital signs Vitals: Pulse Resp BP Pulse Ox 74 18 149/76 H 95 04/14/19 14:30 04/14/19 14:30 04/14/19 14:30 04/14/19 14:30 - Notes Notes: PHYSICAL EXAMINATION: GENERAL: Appears well, healthy, well-nourished, no acute distress. HEAD: Normocephalic, atraumatic. EYES: PERRL, conjunctiva normal, all extraocular movements intact, sclera nonicteric ENT: Moist mucous membranes. NECK: Supple, no noticeable swelling, redness, rash. Normal range of motion. LUNGS: Equal breath sounds bilaterally and clear to auscultation. No wheezes rales or rhonchi. CARDIOVASCULAR: S1-S2, regular rate, regular rhythm. Radial pulses 2+, normal. ABDOMEN: Normoactive bowel sounds. Soft, nontender, no guarding, no rebound tenderness, and no masses palpated. EXTREMITIES: Right foot strength greater than left. 5/5 strength in upper extremities. NEUROLOGICAL: Moves all extremities upon command. PSYCH: Normal mood, normal affect. SKIN: Warm, dry. No rash, lesions, ulcerations noted. Normal skin turgor. Course - Re-evaluation Re-evalutation: 04/14/19 16:35 CBC chemistry are unremarkable at this time. Patient has old infarcts noted on his CT. He reported these results to the patient. He asked me to call his primary care provider to run his information by him before calling hospitalist. 04/14/19 16:[address] Gaines, patient's primary care provider. He is in agreement on possibly having the patient observed overnight to see if his symptoms resolve. 04/14/19 17:[address] Arevalo and the patient will be admitted to [facility]. - Vital Signs Vital signs: Temp Pulse Resp BP Pulse Ox 97.4 F 72 18 135/75 H 97 04/15/19 00:00 04/15/19 00:00 04/15/19 00:00 04/15/19 00:00 04/15/19 00:00 - Laboratory Result Diagrams: 04/14/19 15:25 04/14/19 15:25 Laboratory results interpreted by me: 04/14/19 15:25 Creatinine 1.56 H Est GFR ( Amer) 54 L Est GFR (MDRD) Non-Af 44 L Glucose 147 H Discharge - Discharge Clinical Impression: Weakness of left foot Condition: Fair Disposition: ADMITTED INPATIENT Admitting Provider: Irina (Hospitalist) Unit Admitted: [facility]
[2019-04-14 15:41] LABS: ABSOLUTE EOSINOPHILS # (AUTO) 0.2 10^3/uL (0.0-0.6); ABSOLUTE LYMPHOCYTES (AUTO) 1.4 10^3/uL (0.5-4.7); ABSOLUTE MONOCYTES (AUTO) 0.3 10^3/uL (0.1-1.4); ABSOLUTE NEUT (AUTO) 2.8 10^3/uL (1.7-8.2); BASOPHILS % (AUTO) 0.3 % (0-2); EOSINOPHILS % (AUTO) 3.5 % (0-6); HEMATOCRIT 42.2 % (37.9-51.0); LYMPHOCYTES % (AUTO) 30.6 % (13-45); MEAN CORPUSCULAR HGB CONC 33.2 g/dL (32.0-36.0); MEAN CORPUSCULAR VOLUME 94 fl (80-97); MONOCYTES % (AUTO) 5.9 % (3-13); PLATELET COUNT 182 10^3/uL (150-450); RED BLOOD COUNT 4.51 10^6/uL (4.35-5.55); RED CELL DISTRIBUTION WIDTH 13.6 % (11.5-14.0); SEGMENTED NEUTROPHILS % (AUTO) 59.7 % (42-78); TOTAL CELLS COUNTED % (AUTO) 100 %; WHITE BLOOD COUNT 4.7 10^3/uL (4.0-10.5)
--- NOTE | 2019-04-14 15:48 | RADIOLOGY REPORT (SQ) ---
EXAM DESCRIPTION: CT HEAD WITHOUT COMPLETED DATE/TIME: 04/14/2019 3:38 pm REASON FOR STUDY: left foot weakness COMPARISON: 09/01/2018. TECHNIQUE: Axial images acquired through the brain without intravenous contrast. Images reviewed wi th bone, brain and subdural windows. Additional sagittal and coronal reconstructions were generated. Images stored on PACS. All CT scanners at this facility use dose modulation, iterative reconstruction, and/or weight based d osing when appropriate to reduce radiation dose to as low as reasonably achievable (ALARA). [facility]: Dose Right [facility]: CareDose [facility]: Dose Right [facility]: Teradose 4D [facility]: [employer] RADIATION DOSE: CT Rad equipment meets quality standard of care and radiation dose reduction techniq ues were employed. CTDIvol: 53.2 mGy. DLP: 1150 mGy-cm.mGy. LIMITATIONS: None. FINDINGS: VENTRICLES: Prominent. CEREBRUM: No masses. No hemorrhage. No midline shift. Areas of low density in the white matter mos t likely due to chronic micro-vascular ischemic change. Old infarct in the right occipital lobe. No evidence for acute infarction. CEREBELLUM: No masses. No hemorrhage. No alteration of density. No evidence for acute infarction. EXTRAAXIAL SPACES: Age-related involutional change. No fluid collections. No masses. ORBITS AND GLOBE: No intra- or extraconal masses. Normal contour of globe without masses. CALVARIUM: No fracture. PARANASAL SINUSES: No fluid or mucosal thickening. SOFT TISSUES: No mass or hematoma. OTHER: No other significant finding. IMPRESSION: CHRONIC CHANGES OF ATROPHY AND MICROVASCULAR ISCHEMIA. 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 NO ACUTE PROCESS. EVIDENCE OF ACUTE STROKE: NO. TECHNICAL DOCUMENTATION: JOB ID: [id number] Quality ID # 436: Final reports with documentation of one or more dose reduction techniques (e.g., Au tomated exposure control, adjustment of the mA and/or kV according to patient size, use of iterative reconstruction technique) 2010 [employer]- All Rights Reserved Reading location - IP/workstation name: [email or web address]
[2019-04-14 15:58] LABS: INTERNATIONAL RATION (INR) 1.13; PROTHROMBIN TIME 14.5 SEC (11.4-15.4)
[2019-04-14 15:59] LABS: PARTIAL THROMBOPLASTIN TIME 28.8 SEC (23.5-35.8)
[2019-04-14 16:16] LABS: ALBUMIN 3.6 g/dL (3.5-5.0); ALKALINE PHOSPHATASE 66 U/L (38-126); ANION GAP 7 (5-19); ASPARTATE AMINO TRANSFERASE 46 U/L (17-59); BILIRUBIN,DIRECT 0.1 mg/dL (0.0-0.4); BILIRUBIN,TOTAL 0.4 mg/dL (0.2-1.3); BLOOD UREA NITROGEN 17 mg/dL (7-20); CALCIUM 9.3 mg/dL (8.4-10.2); CARBON DIOXIDE 30 mmol/L (22-30); CHLORIDE 102 mmol/L (98-107); GLUCOSE 147 mg/dL (75-110); POTASSIUM 3.8 mmol/L (3.6-5.0); TOTAL PROTEIN 6.5 g/dL (6.3-8.2)
[2019-04-14] MEDS ORDERED: ONDANSETRON HCL INJ/PF 4 MG/2 ML SDV IV PRN (17:53)
[2019-04-14] MEDS ORDERED: ACETAMINOPHEN 325 MG TABLET PO PRN (17:53)
--- NOTE | 2019-04-14 17:53 | PDOC H&P ---
History of Present Illness Admission Date/PCP: 04/14/19 17:21 CALVIN PEDRAZA MD Patient complains of: Numbness and tingling in the left foot. History of Present Illness: JORGE WAHL is a 68 year old male with history of hypertension, type 2 diabetes mellitus, congestive heart failure, density, previous history of strokes, history of [place] came to the emergency room with concerns about left leg weakness numbness from yesterday. He is dragging his left side of the body from this morning yesterday. Concerned about these changes and physical condition called his primary care physician and he was advised to come to the hospital for further evaluation. Patient complaining of no headaches no dizzy spells no chest pains no falls no urinary incontinence no fecal incontinence. Denies any recent trauma. CT head in the emergency room was negative for acute pathology. Medical consult was called for admission. Patient states he has a CardioMEMS heart monitor we are not sure if it is MRI compatible or not. Past Medical History Cardiac Medical History: Reports: Congestive Heart Failure, Myocardial Infarction, Hyperlipidema, Hypertension Pulmonary Medical History: Reports: Chronic Obstructive Pulmonary Disease (COPD) Endocrine Medical History: Reports: Diabetes Mellitus Type 2 - IDDM GI Medical History: Reports: Gastroesophageal Reflux Disease Psychiatric Medical History: Reports: None, Depression Past Surgical History Past Surgical History: Reports: Cholecystectomy, Tonsillectomy, Other - CardioMEMS heart monitor Social History Smoking Status: Former Smoker Electronic Cigarette use?: No Frequency of Alcohol Use: None Hx Recreational Drug Use: No Drugs: None Hx Prescription Drug Abuse: No - Advance Directive Resuscitation Status: Full Code Family History Family History: Reviewed & Not Pertinent, DM, Hypertension Parental Family History Reviewed: Yes - Hypertension, diabetes, heart disease Children Family History Reviewed: Yes Sibling(s) Family History Reviewed.: Yes Medication/Allergy Home Medications: Aspirin [Ecotrin 81 mg EC Tablet] 81 mg PO DAILY 09/01/18 Atorvastatin Calcium [Lipitor 80 mg Tablet] 80 mg PO QHS 09/01/18 Clonazepam [Klonopin 1 mg Tablet] 1 mg PO BID 09/01/18 Clopidogrel Bisulfate [Plavix 75 mg Tablet] 75 mg PO DAILY 09/01/18 Cyanocobalamin (Vitamin B-12) [B-12] 2,500 mcg SL DAILY 09/01/18 Docusate Sodium [Colace 100 mg Capsule] 100 mg PO DAILY 09/01/18 Ferrous Sulfate [Feosol 325 mg Tablet] 325 mg PO DAILY 09/01/18 Furosemide [Lasix 20 mg Tablet] 20 mg PO BID 09/01/18 Gabapentin [Neurontin 300 mg Capsule] 300 mg PO QHS 09/01/18 Hydralazine HCl [Apresoline 10 mg Tablet] 10 mg PO Q12 09/01/18 Insulin Aspart [Novolog Insulin 100 Unit/1 ml 10 ml] 5 unit SUBCUT AC 09/01/18 Insulin Glargine,Hum.rec.anlog [Basaglar Kwikpen U-100] 30 unit SQ Q12 09/01/18 Isosorbide Mononitrate [Imdur 30 mg Tablet.er] 30 mg PO DAILY 09/01/18 Ivabradine HCl [Corlanor] 7.5 mg PO BID 09/01/18 Lansoprazole [Prevacid 30 Mg Odt Tablet] 30 mg PO Q6AM 09/01/18 Linagliptin [Tradjenta] 5 mg PO DAILY 09/01/18 Magnesium Oxide [Mag-Ox 400 mg Tablet] 400 mg PO BID 09/01/18 Metoprolol Succinate [Toprol XL 100 mg Tablet] 100 mg PO Q12 09/01/18 Multivitamin [Tab-A-Tio (Multiple Vitamin) Tablet] 1 tab PO DAILY 09/01/18 Nortriptyline HCl [Pamelor] 75 mg PO QHS 09/01/18 Prazosin HCl [Minipress] 5 mg PO QHS 09/01/18 Sertraline HCl [Zoloft] 200 mg PO QHS 09/01/18 Spironolactone [Aldactone] 50 mg PO DAILY 09/01/18 Trazodone HCl [Desyrel] 100 mg PO QHS 09/01/18 Allergies/Adverse Reactions: No Known Allergies Allergy (Verified 09/30/18 18:13) Review of Systems Constitutional: PRESENT: fatigue, weakness. ABSENT: fever(s), headache(s) Eyes: ABSENT: visual disturbances Ears: ABSENT: hearing changes Nose, Mouth, and Throat: ABSENT: sore throat Cardiovascular: ABSENT: palpitations Respiratory: ABSENT: cough, hemoptysis Genitourinary: ABSENT: dysuria, hematuria Neurological: ABSENT: abnormal gait, abnormal speech, confusion, dizziness, focal weakness, syncope Psychiatric: ABSENT: anxiety, depression, homidical ideation, suicidal ideation Endocrine: ABSENT: cold intolerance, heat intolerance, polydipsia, polyuria Physical Exam Vital Signs: Temp Pulse Resp BP Pulse Ox 98.2 F 74 18 144/74 H 96 04/14/19 14:34 04/14/19 14:34 04/14/19 14:34 04/14/19 15:01 04/14/19 15:31 Intake & Output 04/13/19 04/14/19 04/15/19 06:59 06:59 06:59 Weight 122.016 kg General appearance: PRESENT: no acute distress, obese Head exam: PRESENT: atraumatic Eye exam: PRESENT: PERRLA Mouth exam: PRESENT: moist, tongue midline Teeth exam: PRESENT: poor dentation Neck exam: ABSENT: carotid bruit, JVD, lymphadenopathy, thyromegaly Respiratory exam: PRESENT: decreased breath sounds Cardiovascular exam: PRESENT: RRR. ABSENT: diastolic murmur, rubs, systolic murmur GI/Abdominal exam: PRESENT: normal bowel sounds, soft. ABSENT: distended, guarding, mass, organolmegaly, rebound, tenderness Rectal exam: PRESENT: deferred Neurological exam: PRESENT: alert, awake, oriented to person, oriented to place, oriented to time, oriented to situation, CN II-XII grossly intact. ABSENT: motor sensory deficit Psychiatric exam: PRESENT: appropriate affect, normal mood. ABSENT: homicidal ideation, suicidal ideation Results Laboratory Results: 04/14/19 15:25 04/14/19 15:25 04/14/19 04/14/19 15:25 15:25 WBC 4.7 RBC 4.51 Hgb 14.0 Hct 42.2 MCV 94 MCH 31.0 MCHC 33.2 RDW 13.6 Plt Count 182 Seg Neutrophils % 59.7 Sodium 139.4 Potassium 3.8 Chloride 102 Carbon Dioxide 30 Anion Gap 7 BUN 17 Creatinine 1.56 H Est GFR ( Amer) 54 L Glucose 147 H Calcium 9.3 Total Bilirubin 0.4 AST 46 Alkaline Phosphatase 66 Total Protein 6.5 Albumin 3.6 Impressions: Head CT 04/14/19 14:58 IMPRESSION: CHRONIC CHANGES OF ATROPHY AND MICROVASCULAR ISCHEMIA. OLD INFARCT IN THE RIGHT OCCIPITAL LOBE. NO ACUTE PROCESS. EVIDENCE OF ACUTE STROKE: NO. Assessment and Plan - Diagnosis (1) Weakness of left foot Is this a current diagnosis for this admission?: Yes Plan: 04/14/2019-patient is going to be admitted to [facility] for observation. If possible we will do the MRI of the head tomorrow without contrast if not will repeat the CT head tomorrow. Carotid Doppler will be requested tomorrow. To start him on a diabetic diet and check insulin before meals and at bedtime. GI prophylaxis DVT prophylaxis will be initiated stroke core measures will be implemented. Fall precautions will be requested. Physical therapy consult will be requested. (2) Diabetes mellitus Qualifiers: Diabetes mellitus type: type 2 Diabetes mellitus complication status: with circulatory complication Diabetes mellitus complication detail: with other circulatory complications Is this a current diagnosis for this admission?: No Plan: 04/14/2019 patient has history of type 2 diabetes mellitus to start him on insulin sliding scale before meals and at bedtime and check hemoglobin A1c tomorrow diet exercise weight loss lifestyle modifications will be discussed with the patient. (3) HTN (hypertension) Qualifiers: Hypertension type: essential hypertension Qualified Code(s): I10 - Essential (primary) hypertension Is this a current diagnosis for this admission?: No Plan: 04/14/2019-patient blood pressure today is 144/80. Plan is to continue his home medications at the time of admission. (4) Non-ischemic cardiomyopathy Is this a current diagnosis for this admission?: No Plan: 04/14/2019-patient has history of congestive heart failure not in fluid overload at the time of admission. Recent echocardiogram done in August this year shows EF of 60% and mild diastolic heart failure. Patient said he has a CardioMEMS heart monitor device. (5) CKD (chronic kidney disease) Is this a current diagnosis for this admission?: No Plan: 04/14/2019-patient has history of chronic kidney disease. Creatinine today is 1.56. Stable. Patient has a stage III kidney disease. - Time Time Spent with patient: 35 or more minutes Medications reviewed and adjusted accordingly: Yes Anticipated discharge: Home with Homehealth
[2019-04-14] MEDS ORDERED: GLUCAGON,HUMAN RECOMB 1 MG INJ IM PRN (17:59)
[2019-04-14] MEDS ORDERED: DEXTROSE 50%-WATER 25 GM/50 ML DISP.SYRIN IV PRN ×2 (17:59)
[2019-04-14] MEDS ORDERED: DEXTROSE 40% GEL 15 GM TUBE PO PRN ×2 (17:59)
[2019-04-14] MEDS ORDERED: HYDRALAZINE HCL INJ/PF 20 MG/1 ML SDV IV PRN (18:01)
[2019-04-14] MEDS ORDERED: CLONAZEPAM 1 MG TABLET PO PRN (18:10)
[2019-04-14] MEDS: GABAPENTIN 300 MG CAPSULE PO SCH (18:35)
--- NOTE | 2019-04-14 19:15 | RADIOLOGY REPORT (SQ) ---
EXAM DESCRIPTION: CAROTID DOPPLER COMPLETED DATE/TIME: 04/14/2019 6:56 pm REASON FOR STUDY: tia COMPARISON: None. TECHNIQUE: Grayscale ultrasound, Doppler velocity and spectra, and color Doppler images acquired of the extra-cranial carotid and vertebral arteries. Images stored on PACS. LIMITATIONS: None. FINDINGS: RIGHT CAROTID CCA Velocities: Within normal limits. ICA Velocities Peak systolic 94 cm/s. End diastolic 35 cm/s. Proximal ICA/CCA peak systolic ratio 2.0. Soft plaque. Tortuous ICA. LEFT CAROTID CCA Velocities: Within normal limits. ICA Velocities Peak systolic 63 cm/s. End diastolic 20 sick cm/s. Proximal ICA/CCA peak systolic ratio 1.0. Soft plaque. Tortuous ICA. VERTEBRAL ARTERIES: Antegrade flow. Normal waveforms. SUBCLAVIAN ARTERIES: No finding. OTHER: No other significant finding. IMPRESSION: NO HEMODYNAMICALLY SIGNIFICANT STENOSIS. COMMENT: Quality ID #[id number]: Velocity criteria are extrapolated from the diameter data as defined by t [place] Society of Radiologists in Ultrasound Consensus Conference. Radiology 2003: 229; 340-346. TECHNICAL DOCUMENTATION: JOB ID: [id number] [employer]- All Rights Reserved Reading location - IP/workstation name: [email or web address]
[2019-04-14] MEDS: INSULIN REG, HUMAN 100 UNIT/ML 3 ML VIAL (PYX) SUBCUT SCH (21:55)
[2019-04-14] MEDS ORDERED: TRAZODONE HCL 50 MG TABLET PO SCH (22:00)
[2019-04-14] MEDS ORDERED: ATORVASTATIN CALCIUM 40 MG TABLET PO SCH (22:00)
[2019-04-14] MEDS: HEPARIN SOD (PORCINE) 5,000 UNIT/ML 1 ML VIAL SUBCUT SCH (22:01)
[2019-04-14] MEDS: HYDRALAZINE HCL 10 MG TABLET PO SCH (22:02)
--- NOTE | 2019-04-14 23:00 | EKG REPORT ---
SEVERITY:- ABNORMAL ECG - SINUS RHYTHM PAIRED VENTRICULAR PREMATURE COMPLEXES FIRST DEGREE AV BLOCK NONSPECIFIC INTRAVENTRICULAR CONDUCTION DELAY LOW VOLTAGE IN FRONTAL LEADS : Confirmed by: Elizabeth Davis 14-Apr-2019 22:59:55
[2019-04-15 05:13] LABS: HEMATOCRIT 43.6 % (37.9-51.0); HEMOGLOBIN 14.5 g/dL (13.5-17.0); MEAN CORPUSCULAR HEMOGLOBIN 31.3 pg (27.0-33.4); MEAN CORPUSCULAR HGB CONC 33.2 g/dL (32.0-36.0); MEAN CORPUSCULAR VOLUME 94 fl (80-97); PLATELET COUNT 190 10^3/uL (150-450); RED BLOOD COUNT 4.64 10^6/uL (4.35-5.55); RED CELL DISTRIBUTION WIDTH 13.7 % (11.5-14.0); WHITE BLOOD COUNT 5.6 10^3/uL (4.0-10.5)
[2019-04-15 05:26] LABS: ALBUMIN 3.5 g/dL (3.5-5.0); ALKALINE PHOSPHATASE 74 U/L (38-126); ANION GAP 8 (5-19); ASPARTATE AMINO TRANSFERASE 47 U/L (17-59); BILIRUBIN,DIRECT 0.2 mg/dL (0.0-0.4); BILIRUBIN,TOTAL 0.4 mg/dL (0.2-1.3); BLOOD UREA NITROGEN 17 mg/dL (7-20); CALCIUM 9.1 mg/dL (8.4-10.2); CARBON DIOXIDE 32 mmol/L (22-30); CHLORIDE 101 mmol/L (98-107); CHOLESTEROL 90.23 mg/dL (0-200); CREATINE KINASE 91 U/L (55-170); GLUCOSE 148 mg/dL (75-110); POTASSIUM 3.9 mmol/L (3.6-5.0); TOTAL PROTEIN 6.4 g/dL (6.3-8.2); TRIGLYCERIDES 185 mg/dL (<150)
[2019-04-15 05:37] LABS: DIRECT LDL 48 mg/dL (<100)
[2019-04-15] MEDS ORDERED: PANTOPRAZOLE SODIUM 40 MG TABLET.DR PO SCH (06:00)
[2019-04-15] MEDS: HEPARIN SOD (PORCINE) 5,000 UNIT/ML 1 ML VIAL SUBCUT SCH ×2 (06:28→13:19)
[2019-04-15] MEDS ORDERED: INFLUENZA QUAD (6MOS+) 2019-20 VAC 0.5 ML SYR IM ONE (08:00)
[2019-04-15] MEDS: INSULIN REG, HUMAN 100 UNIT/ML 3 ML VIAL (PYX) SUBCUT SCH ×2 (08:37→12:39)
[2019-04-15] MEDS ORDERED: FUROSEMIDE 20 MG TABLET PO SCH (10:00)
[2019-04-15] MEDS ORDERED: DOCUSATE SODIUM 100 MG CAPSULE PO SCH (10:00)
[2019-04-15] MEDS ORDERED: FERROUS SULFATE 325 MG TABLET PO SCH (10:00)
[2019-04-15] MEDS ORDERED: UMECLIDINIUM BROMIDE 62.5 MCG/DOSE IH SCH (10:00)
[2019-04-15] MEDS ORDERED: METOPROLOL SUCCINATE 50 MG TAB.SR.24H PO SCH (10:00)
[2019-04-15] MEDS ORDERED: ISOSORBIDE MONONITRATE 60 MG TAB.ER.24H PO SCH (10:00)
[2019-04-15] MEDS ORDERED: ASPIRIN 325 MG TABLET PO SCH (10:00)
[2019-04-15] MEDS ORDERED: (PENDING PHARMACY ID) (Linagliptin [Tradjenta] 5 MG) PO SCH (10:00)
[2019-04-15] MEDS ORDERED: (PENDING PHARMACY ID) (Ketoconazole [Nizoral] 1 APPLIC) TOP SCH (10:00)
[2019-04-15] MEDS ORDERED: (PENDING PHARMACY ID) (Cyanocobalamin (Vitamin B-12) [B-12] 2,500 MCG) SL SCH (10:00)
[2019-04-15] MEDS ORDERED: MULTIVITAMIN TABLET PO SCH (10:00)
[2019-04-15] MEDS ORDERED: MAGNESIUM OXIDE 400 MG TABLET PO SCH (10:00)
[2019-04-15] MEDS ORDERED: SPIRONOLACTONE 25 MG TABLET PO SCH (10:00)
[2019-04-15] MEDS ORDERED: IVABRADINE HCL 7.5 MG PO SCH (10:00)
[2019-04-15] MEDS ORDERED: SERTRALINE HCL 50 MG TABLET PO SCH (10:00)
[2019-04-15] MEDS ORDERED: CLOPIDOGREL BISULFATE 75 MG TABLET PO SCH (10:00)
--- NOTE | 2019-04-15 10:04 | RADIOLOGY REPORT (SQ) ---
EXAM DESCRIPTION: MRI HEAD WITHOUT COMPLETED DATE/TIME: 04/15/2019 9:41 am REASON FOR STUDY: tia COMPARISON: 04/14/2019. TECHNIQUE: Multiplanar imaging includes non-contrasted T1, T2, FLAIR, and diffusion with ADC map seq uences. Images stored on PACS. LIMITATIONS: None. FINDINGS: ANATOMY: No anomalies. Normal vascular flow voids. Pituitary fossa normal. CSF SPACES: Atrophy induced prominence of ventricles and CSF spaces. CEREBRUM: High signal intensity lesions scattered throughout the white matter on FLAIR imaging with d istribution suggesting micro-vascular ischemic changes. Old infarct in the right occipital lobe. No evidence of hemorrhage, mass, or extraaxial fluid collection. POSTERIOR FOSSA: Old infarct in the right cerebellum. No hemorrhage. No edema, masses or mass effect. Internal auditory canals, cerebello-pontine angles, mastoids normal. DIFFUSION IMAGING: Negative for acute or sub-acute infarction. ORBITS: No masses. Globes normal. PARANASAL SINUSES: No fluid levels. Mucosa normal. OTHER: No other significant finding. IMPRESSION: ATROPHY AND CHRONIC MICRO-VASCULAR ISCHEMIC CHANGES. OLD INFARCTS IN THE RIGHT OCCIPITA L LOBE AND RIGHT CEREBELLUM. NO ACUTE FINDINGS. EVIDENCE OF ACUTE STROKE: NO. TECHNICAL DOCUMENTATION: JOB ID: [id number] [employer]- All Rights Reserved Reading location - IP/workstation name: [email or web address]
[2019-04-15] MEDS: HYDRALAZINE HCL 10 MG TABLET PO SCH (10:23)
[2019-04-15] MEDS: GABAPENTIN 300 MG CAPSULE PO SCH (10:24)
--- NOTE | 2019-04-15 11:36 | PDOC DISCHARGE SUMMARY ---
Impression - Admit/DC Date/PCP Admission Date/Primary Care Provider: 04/14/19 17:21 CALVIN PEDRAZA MD Discharge Date: 04/15/19 - Discharge Diagnosis (1) Weakness of left foot Is this a current diagnosis for this admission?: Yes (2) Diabetes mellitus Is this a current diagnosis for this admission?: No (3) HTN (hypertension) Is this a current diagnosis for this admission?: No (4) Non-ischemic cardiomyopathy Is this a current diagnosis for this admission?: No (5) CKD (chronic kidney disease) Is this a current diagnosis for this admission?: No - Assessment Summary: 68 year old male with history of hypertension, type 2 diabetes mellitus, congestive heart failure, density, previous history of strokes, history of [place] came to the emergency room with concerns about left leg weakness numbness from y esterday. He is dragging his left side of the body from this morning yesterday. Concerned about these changes and physical condition called his primary care physician and he was advised to come to the hospital for further evaluation. Patient complaining of no headaches no dizzy spells no chest pains no falls no urinary incontinence no fecal incontinence. Denies any recent trauma. CT head in the emergency room was negative for acute pathology. Medical consult was called for admission. Patient states he has a CardioMEMS heart monitor we are not sure if it is MRI compatible or not. 04/15/[id number]-ycna-old male with history of DE, diabetes mellitus hypertension hypercholesterolemia admitted for left foot weakness/tingling CT head was negative for acute pathology, carotid Doppler is negative for hemodynamically significant stenosis and MRI of the brain is negative for acute pathology. Patient is going home today. - Additional Information Resuscitation Status: Full Code Discharge Diet: Diabetic Discharge Activity: Activity As Tolerated Referrals: HAKEEM DEWITT PA-C [ALLIED HEALTH PROFESSIONAL] - Follow up as needed Home Medications: Aspirin [Ecotrin 81 mg EC Tablet] 81 mg PO DAILY 09/01/18 Atorvastatin Calcium [Lipitor 80 mg Tablet] 80 mg PO QHS 09/01/18 Clonazepam [Klonopin 1 mg Tablet] 1 mg PO BID 09/01/18 Clopidogrel Bisulfate [Plavix 75 mg Tablet] 75 mg PO DAILY 09/01/18 Cyanocobalamin (Vitamin B-12) [B-12] 2,500 mcg SL DAILY 09/01/18 Docusate Sodium [Colace 100 mg Capsule] 100 mg PO DAILY 09/01/18 Ferrous Sulfate [Feosol 325 mg Tablet] 325 mg PO DAILY 09/01/18 Furosemide [Lasix 20 mg Tablet] 20 mg PO BID 09/01/18 Gabapentin [Neurontin 300 mg Capsule] 300 mg PO QHS 09/01/18 Hydralazine HCl [Apresoline 10 mg Tablet] 10 mg PO Q12 09/01/18 Insulin Aspart [Novolog Insulin (Aspart) 100 unit/mL] 5 unit SUBCUT AC 09/01/18 Insulin Glargine,Hum.rec.anlog [Basaglar Kwikpen U-100] 30 unit SQ Q12 09/01/18 Isosorbide Mononitrate [Imdur 30 mg Tablet.er] 30 mg PO DAILY 09/01/18 Ivabradine HCl [Corlanor] 7.5 mg PO BID 09/01/18 Lansoprazole [Prevacid 30 mg Odt Tablet] 30 mg PO Q6AM 09/01/18 Linagliptin [Tradjenta] 5 mg PO DAILY 09/01/18 Magnesium Oxide [Mag-Ox 400 mg Tablet] 400 mg PO BID 09/01/18 Multivitamin [Tab-A-Tio (Multiple Vitamin) Tablet] 1 tab PO DAILY 09/01/18 Nortriptyline HCl [Pamelor] 75 mg PO QHS 09/01/18 Prazosin HCl [Minipress] 5 mg PO QHS 09/01/18 Sertraline HCl [Zoloft] 200 mg PO QHS 09/01/18 Spironolactone [Aldactone] 50 mg PO DAILY 09/01/18 Trazodone HCl [Desyrel] 100 mg PO QHS 09/01/18 Ketoconazole [Nizoral] 1 applic TOP BID 04/14/19 Metoprolol Succinate [Toprol Xl 50 mg Tab.sr] 50 mg PO DAILY 04/14/19 Trazodone HCl [Desyrel] 100 mg PO QHS 04/14/19 Umeclidinium Bent [Incruse Ellipta] 1 puff IH DAILY 04/14/19 Sertraline HCl [Zoloft 50 mg Tablet] 200 mg PO DAILY tablet 04/15/19 Spironolactone [Aldactone 25 mg Tablet] 50 mg PO DAILY tablet 04/15/19 History of Present Illiness History of Present Illness: JORGE WAHL is a 68 year old male with history of hypertension, type 2 diabetes mellitus, congestive heart failure, density, previous history of strokes, history of [place] came to the emergency room with concerns about left leg weakness numbness from yesterday. He is dragging his left side of the body from this morning yesterday. Concerned about these changes and physical condition called his primary care physician and he was advised to come to the hospital for further evaluation. Patient complaining of no headaches no dizzy spells no chest pains no falls no urinary incontinence no fecal incontinence. Denies any recent trauma. CT head in the emergency room was negative for acute pathology. Medical consult was called for admission. Patient states he has a CardioMEMS heart monitor we are not sure if it is MRI compatible or not. Hospital Course Hospital Course: 68 year old male with history of hypertension, type 2 diabetes mellitus, congestive heart failure, density, previous history of strokes, history of [place] came to the emergency room with concerns about left leg weakness numbness from yesterday. He is dragging his left side of the body from this morning yesterday. Concerned about these changes and physical condition called his primary care physician and he was advised to come to the hospital for further evaluation. Patient complaining of no headaches no dizzy spells no chest pains no falls no urinary incontinence no fecal incontinence. Denies any recent trauma. CT head in the emergency room was negative for acute pathology. Medical consult was called for admission. Patient states he has a CardioMEMS heart monitor we are not sure if it is MRI compatible or not. 04/15/2019-no acute events in the last [address] head is negative MRI of the brain is negative for acute pathology. Patient is going home today. Physical Exam Vital Signs: Temp Pulse Resp BP Pulse Ox 98.1 F 79 18 146/94 H 95 04/15/19 08:08 04/15/19 08:08 04/15/19 08:08 04/15/19 08:08 04/15/19 08:08 Intake & Output 04/14/19 04/15/19 04/16/19 06:59 06:59 06:59 Intake Total 378 Output Total 625 Balance -247 Weight 117.9 kg General appearance: PRESENT: no acute distress, morbidly obese Head exam: PRESENT: atraumatic Eye exam: PRESENT: PERRLA Mouth exam: PRESENT: moist, tongue midline Teeth exam: PRESENT: poor dentation Neck exam: ABSENT: carotid bruit, JVD, lymphadenopathy, thyromegaly Respiratory exam: PRESENT: decreased breath sounds Cardiovascular exam: PRESENT: RRR. ABSENT: diastolic murmur, rubs, systolic murmur GI/Abdominal exam: PRESENT: normal bowel sounds, soft. ABSENT: distended, guarding, mass, organolmegaly, rebound, tenderness Rectal exam: PRESENT: deferred Extremities exam: PRESENT: full ROM. ABSENT: calf tenderness, clubbing, pedal edema Neurological exam: PRESENT: alert, awake, oriented to person, oriented to place, oriented to time, oriented to situation, CN II-XII grossly intact. ABSENT: motor sensory deficit Psychiatric exam: PRESENT: appropriate affect, normal mood. ABSENT: homicidal ideation, suicidal ideation Results Laboratory Results: WBC 5.6 10^3/uL (4.0-10.5) 04/15/19 04:18 RBC 4.64 10^6/uL (4.35-5.55) 04/15/19 04:18 Hgb 14.5 g/dL (13.5-17.0) 04/15/19 04:18 Hct 43.6 % (37.9-51.0) 04/15/19 04:18 MCV 94 fl (80-97) 04/15/19 04:18 MCH 31.3 pg (27.0-33.4) 04/15/19 04:18 MCHC 33.2 g/dL (32.0-36.0) 04/15/19 04:18 RDW 13.7 % (11.5-14.0) 04/15/19 04:18 Plt Count 190 10^3/uL (150-450) 04/15/19 04:18 Lymph % (Auto) 30.6 % (13-45) 04/14/19 15:25 Ada % (Auto) 5.9 % (3-13) 04/14/19 15:25 Eos % (Auto) 3.5 % (0-6) 04/14/19 15:25 Baso % (Auto) 0.3 % (0-2) 04/14/19 15:25 Absolute Neuts (auto) 2.8 10^3/uL (1.7-8.2) 04/14/19 15:25 Absolute Lymphs (auto) 1.4 10^3/uL (0.5-4.7) 04/14/19 15:25 Absolute Monos (auto) 0.3 10^3/uL (0.1-1.4) 04/14/19 15:25 Absolute Eos (auto) 0.2 10^3/uL (0.0-0.6) 04/14/19 15:25 Absolute Basos (auto) 0.0 10^3/uL (0.0-0.2) 04/14/19 15:25 Seg Neutrophils % 59.7 % (42-78) 04/14/19 15:25 PT 14.5 SEC (11.4-15.4) 04/14/19 15:25 INR 1.13 04/14/19 15:25 APTT 28.8 SEC (23.5-35.8) 04/14/19 15:25 Sodium 140.5 mmol/L (137-145) 04/15/19 04:18 Potassium 3.9 mmol/L (3.6-5.0) 04/15/19 04:18 Chloride 101 mmol/L (98-107) 04/15/19 04:18 Carbon Dioxide 32 mmol/L (22-30) H 04/15/19 04:18 Anion Gap 8 (5-19) 04/15/19 04:18 BUN 17 mg/dL (7-20) 04/15/19 04:18 Creatinine 1.65 mg/dL (0.52-1.25) H 04/15/19 04:18 Est GFR ( Amer) 50 (>60) L 04/15/19 04:18 Est GFR (MDRD) Non-Af 42 (>60) L 04/15/19 04:18 Glucose 148 mg/dL (75-110) H 04/15/19 04:18 POC Glucose 113 mg/dL (70-110) H 04/15/19 11:20 Hemoglobin A1c % 6.8 % (4.7-6.0) H 04/15/19 04:18 Calcium 9.1 mg/dL (8.4-10.2) 04/15/19 04:18 Total Bilirubin 0.4 mg/dL (0.2-1.3) 04/15/19 04:18 Direct Bilirubin 0.2 mg/dL (0.0-0.4) 04/15/19 04:18 Neonat Total Bilirubin Not Reportable 04/15/19 04:18 Neonat Direct Bilirubin Not Reportable 04/15/19 04:18 Neonat Indirect Bili Not Reportable 04/15/19 04:18 AST 47 U/L (17-59) 04/15/19 04:18 ALT 29 U/L (<50) 04/15/19 04:18 Alkaline Phosphatase 74 U/L (38-126) 04/15/19 04:18 Creatine Kinase 91 U/L (55-170) 04/15/19 04:18 Troponin I 0.012 ng/mL 04/15/19 04:18 Total Protein 6.4 g/dL (6.3-8.2) 04/15/19 04:18 Albumin 3.5 g/dL (3.5-5.0) 04/15/19 04:18 Triglycerides 185 mg/dL (<150) H 04/15/19 04:18 Cholesterol 90.23 mg/dL (0-200) 04/15/19 04:18 LDL Cholesterol Direct 48 mg/dL (<100) 04/15/19 04:18 VLDL Cholesterol 37.0 mg/dL (10-31) H 04/15/19 04:18 HDL Cholesterol 30 mg/dL (>40) L 04/15/19 04:18 04/14/19 04/15/19 04/15/19 18:25 00:56 04:18 Troponin I < 0.012 < 0.012 0.012 Impressions: Carotid Doppler Study 04/14/19 00:00 IMPRESSION: NO HEMODYNAMICALLY SIGNIFICANT STENOSIS. Head CT 04/14/19 14:58 IMPRESSION: CHRONIC CHANGES OF ATROPHY AND MICROVASCULAR ISCHEMIA. OLD INFARCT IN THE RIGHT OCCIPITAL LOBE. NO ACUTE PROCESS. EVIDENCE OF ACUTE STROKE: NO. Head MRI 04/15/19 00:00 IMPRESSION: ATROPHY AND CHRONIC MICRO-VASCULAR ISCHEMIC CHANGES. OLD INFARCTS IN THE RIGHT OCCIPITAL LOBE AND RIGHT CEREBELLUM. NO ACUTE FINDINGS. EVIDENCE OF ACUTE STROKE: NO. Plan Time Spent: Greater than 30 Minutes Stroke Is this a Stroke Patient?: No Acute Heart Failure - Is this a Heart Failure Patient?: No
[2019-04-15 12:17] VITALS: BP 146/91
[2019-04-15] MEDS ORDERED: ISOSORBIDE MONONITRATE 30 MG TAB.ER.24H PO SCH (13:00)
[2019-04-15] MEDS ORDERED: SITAGLIPTIN PHOSPHATE 50 MG TABLET PO SCH (13:00)
[2019-04-15] MEDS ORDERED: (PENDING PHARMACY ID) (Nortriptyline Hcl [Pamelor] 75 MG) PO SCH (22:00)
[2019-04-15] MEDS ORDERED: NORTRIPTYLINE HCL 25 MG CAPSULE PO SCH (22:00)
[2019-04-15] MEDS ORDERED: (PENDING PHARMACY ID) (Prazosin Hcl [Minipress] 5 MG) PO SCH (22:00)
[2019-04-16] MEDS ORDERED: CYANOCOBALAMIN (VITAMIN B-12) 1,000 MCG TABLET PO SCH (10:00)
== END 2019-04-15 15:32 | disposition home or self-care (01) ==
LOC: ER 14:29 → EH 17:21 → INTOOBSV 17:21 → 3S 18:55
PROVIDERS: ADMIT Internal Medicine; ATTEND Internal Medicine
DX: R53.1 Weakness (principal); I42.8 Other cardiomyopathies; I13.0 Hypertensive heart and chronic kidney disease with heart failure and stage 1 through stage 4 chronic kidney disease, or unspecified chronic kidney disease; E11.22 Type 2 diabetes mellitus with diabetic chronic kidney disease; N18.9 Chronic kidney disease, unspecified; I50.9 Heart failure, unspecified; E78.00 Pure hypercholesterolemia, unspecified; J44.9 Chronic obstructive pulmonary disease, unspecified; K21.9 Gastro-esophageal reflux disease without esophagitis; F32.9 Major depressive disorder, single episode, unspecified; E66.9 Obesity, unspecified; E11.40 Type 2 diabetes mellitus with diabetic neuropathy, unspecified; I25.2 Old myocardial infarction; Z86.73 Personal history of transient ischemic attack (TIA), and cerebral infarction without residual deficits; Z79.02 Long term (current) use of antithrombotics/antiplatelets; Z79.82 Long term (current) use of aspirin; Z79.4 Long term (current) use of insulin; Z87.891 Personal history of nicotine dependence; Z83.3 Family history of diabetes mellitus; Z82.49 Family history of ischemic heart disease and other diseases of the circulatory system
CPT/HCPCS: 93005; 99285; 36415 ×2; 82962 ×2; 82550 ×2; 85025; 85027; 85610; 85730; 80053 ×2; 84484 ×2; 83036; 80061; 93880; 70551; 70450; 93010; 97116; 97163; 97165; G0378 ×3; A9270 ×16; J1644 ×2; J3490 ×4; J1815

== ENCOUNTER → 2019-08-05 | Outpatient (CLI) | payer MEDICARE, OTHER ==
[2019-08-05 13:26] LABS: HEMATOCRIT 43.2 % (37.9-51.0); HEMOGLOBIN 14.5 g/dL (13.5-17.0); MEAN CORPUSCULAR HEMOGLOBIN 31.2 pg (27.0-33.4); MEAN CORPUSCULAR HGB CONC 33.5 g/dL (32.0-36.0); MEAN CORPUSCULAR VOLUME 93 fl (80-97); PLATELET COUNT 190 10^3/uL (150-450); RED BLOOD COUNT 4.64 10^6/uL (4.35-5.55); WHITE BLOOD COUNT 4.7 10^3/uL (4.0-10.5)
[2019-08-05 13:53] LABS: ANION GAP 10 (5-19); BLOOD UREA NITROGEN 16 mg/dL (7-20); CALCIUM 8.9 mg/dL (8.4-10.2); CARBON DIOXIDE 27 mmol/L (22-30); CHLORIDE 103 mmol/L (98-107); GLUCOSE 153 mg/dL (75-110); PHOSPHORUS 2.7 mg/dL (2.5-4.5); POTASSIUM 4.2 mmol/L (3.6-5.0)
[2019-08-05 14:00] LABS: APPEARANCE,URINE CLEAR; BILIRUBIN,URINE NEGATIVE (NEGATIVE); COLOR,URINE YELLOW; GLUCOSE, URINE NEGATIVE (NEGATIVE); KETONES,URINE NEGATIVE (NEGATIVE); LEUKOCYTE ESTERASE,URINE NEGATIVE (NEGATIVE); NITRITE,URINE NEGATIVE (NEGATIVE); PROTEIN,URINE 100 mg/dL (NEGATIVE); URINE SPECIFIC GRAVITY 1.025; UROBILINOGEN,URINE NEGATIVE mg/dL (<2.0)
[2019-08-05 14:17] LABS: UR PRO/CREAT RATIO RESULT 0.1 mg/mg (0.0-0.2); URINE CREATININE 286.2 mg/dL (22-328); URINE PROTEIN 33.9 mg/dL (<12)
== END ==
LOC: OD 12:51
PROVIDERS: ATTEND Physician Assistant Medical
DX: I12.9 Hypertensive chronic kidney disease with stage 1 through stage 4 chronic kidney disease, or unspecified chronic kidney disease (principal); N18.3 Chronic kidney disease, stage 3 (moderate); E11.22 Type 2 diabetes mellitus with diabetic chronic kidney disease; R80.9 Proteinuria, unspecified; N25.0 Renal osteodystrophy
CPT/HCPCS: 36415; 80048; 81001; 82570; 83970; 84100; 84156; 85027

== ENCOUNTER → 2019-11-03 | Outpatient (CLI) | payer MEDICARE, OTHER ==
[2019-11-03 15:11] LABS: ABSOLUTE EOSINOPHILS # (AUTO) 0.2 10^3/uL (0.0-0.6); ABSOLUTE LYMPHOCYTES (AUTO) 1.6 10^3/uL (0.5-4.7); ABSOLUTE MONOCYTES (AUTO) 0.2 10^3/uL (0.1-1.4); ABSOLUTE NEUT (AUTO) 2.5 10^3/uL (1.7-8.2); BASOPHILS % (AUTO) 0.7 % (0-2); EOSINOPHILS % (AUTO) 5.2 % (0-6); HEMATOCRIT 41.7 % (37.9-51.0); HEMOGLOBIN 14.3 g/dL (13.5-17.0); LYMPHOCYTES % (AUTO) 34.1 % (13-45); MEAN CORPUSCULAR HEMOGLOBIN 31.6 pg (27.0-33.4); MEAN CORPUSCULAR HGB CONC 34.2 g/dL (32.0-36.0); MEAN CORPUSCULAR VOLUME 92 fl (80-97); MONOCYTES % (AUTO) 5.1 % (3-13); PLATELET COUNT 179 10^3/uL (150-450); RED BLOOD COUNT 4.52 10^6/uL (4.35-5.55); SEGMENTED NEUTROPHILS % (AUTO) 54.9 % (42-78); TOTAL CELLS COUNTED % (AUTO) 100 %; WHITE BLOOD COUNT 4.6 10^3/uL (4.0-10.5)
[2019-11-03 15:39] LABS: ALBUMIN 3.8 g/dL (3.5-5.0); ALKALINE PHOSPHATASE 89 U/L (38-126); ANION GAP 8 (5-19); ASPARTATE AMINO TRANSFERASE 45 U/L (17-59); BILIRUBIN,TOTAL 0.4 mg/dL (0.2-1.3); BLOOD UREA NITROGEN 17 mg/dL (7-20); CALCIUM 8.8 mg/dL (8.4-10.2); CARBON DIOXIDE 29 mmol/L (22-30); CHLORIDE 102 mmol/L (98-107); GLUCOSE 174 mg/dL (75-110); TOTAL PROTEIN 6.6 g/dL (6.3-8.2)
[2019-11-04 09:09] LABS: APPEARANCE,URINE CLEAR; BILIRUBIN,URINE NEGATIVE (NEGATIVE); CALCIUM OXALATE CRYSTALS,URINE RARE /HPF; COLOR,URINE YELLOW; GLUCOSE, URINE NEGATIVE (NEGATIVE); KETONES,URINE NEGATIVE (NEGATIVE); LEUKOCYTE ESTERASE,URINE NEGATIVE (NEGATIVE); NITRITE,URINE NEGATIVE (NEGATIVE); PROTEIN,URINE NEGATIVE (NEGATIVE); URINE SPECIFIC GRAVITY 1.021; UROBILINOGEN,URINE NEGATIVE mg/dL (<2.0)
== END ==
LOC: OD 14:29
PROVIDERS: ATTEND Physician Assistant Medical
DX: E11.22 Type 2 diabetes mellitus with diabetic chronic kidney disease (principal); E11.21 Type 2 diabetes mellitus with diabetic nephropathy; N18.3 Chronic kidney disease, stage 3 (moderate); R80.9 Proteinuria, unspecified
CPT/HCPCS: 36415; 80053; 81001; 82550; 85025

== ENCOUNTER → 2020-02-07 | Outpatient (CLI) | payer MEDICARE, OTHER ==
[2020-02-07 17:53] LABS: ABSOLUTE EOSINOPHILS # (AUTO) 0.2 10^3/uL (0.0-0.6); ABSOLUTE MONOCYTES (AUTO) 0.4 10^3/uL (0.1-1.4); ABSOLUTE NEUT (AUTO) 2.8 10^3/uL (1.7-8.2); BASOPHILS % (AUTO) 0.6 % (0-2); EOSINOPHILS % (AUTO) 3.9 % (0-6); HEMATOCRIT 44.2 % (37.9-51.0); HEMOGLOBIN 14.6 g/dL (13.5-17.0); LYMPHOCYTES % (AUTO) 36.8 % (13-45); MEAN CORPUSCULAR HEMOGLOBIN 31.2 pg (27.0-33.4); MEAN CORPUSCULAR VOLUME 95 fl (80-97); MONOCYTES % (AUTO) 7.7 % (3-13); PLATELET COUNT 190 10^3/uL (150-450); RED BLOOD COUNT 4.68 10^6/uL (4.35-5.55); RED CELL DISTRIBUTION WIDTH 13.4 % (11.5-14.0); TOTAL CELLS COUNTED % (AUTO) 100 %; WHITE BLOOD COUNT 5.5 10^3/uL (4.0-10.5)
[2020-02-07 18:23] LABS: APPEARANCE,URINE CLEAR; BILIRUBIN,URINE NEGATIVE (NEGATIVE); COLOR,URINE YELLOW; GLUCOSE, URINE NEGATIVE (NEGATIVE); KETONES,URINE NEGATIVE (NEGATIVE); LEUKOCYTE ESTERASE,URINE NEGATIVE (NEGATIVE); NITRITE,URINE NEGATIVE (NEGATIVE); PROTEIN,URINE 100 mg/dL (NEGATIVE); URINE SPECIFIC GRAVITY 1.027
[2020-02-07 18:28] LABS: ANION GAP 6 (5-19); BLOOD UREA NITROGEN 14 mg/dL (7-20); CARBON DIOXIDE 31 mmol/L (22-30); CHLORIDE 103 mmol/L (98-107); GLUCOSE 95 mg/dL (75-110); PHOSPHORUS 2.1 mg/dL (2.5-4.5); POTASSIUM 4.1 mmol/L (3.6-5.0)
== END ==
LOC: OD 16:24
PROVIDERS: ATTEND Physician Assistant Medical
DX: I12.9 Hypertensive chronic kidney disease with stage 1 through stage 4 chronic kidney disease, or unspecified chronic kidney disease (principal); N18.3 Chronic kidney disease, stage 3 (moderate); E11.22 Type 2 diabetes mellitus with diabetic chronic kidney disease
CPT/HCPCS: 36415; 80048; 81001; 82043; 82306; 82570; 83970; 84100; 85025

== ENCOUNTER 2020-04-15 07:14 | Emergency (ER) | payer OTHER, MEDICARE ==
[2020-04-15 08:29] LABS: ABSOLUTE EOSINOPHILS # (AUTO) 0.2 10^3/uL (0.0-0.6); ABSOLUTE LYMPHOCYTES (AUTO) 1.4 10^3/uL (0.5-4.7); ABSOLUTE MONOCYTES (AUTO) 0.3 10^3/uL (0.1-1.4); ABSOLUTE NEUT (AUTO) 2.8 10^3/uL (1.7-8.2); BASOPHILS % (AUTO) 0.6 % (0-2); EOSINOPHILS % (AUTO) 3.5 % (0-6); HEMATOCRIT 43.3 % (37.9-51.0); HEMOGLOBIN 14.8 g/dL (13.5-17.0); LYMPHOCYTES % (AUTO) 29.6 % (13-45); MEAN CORPUSCULAR HEMOGLOBIN 31.8 pg (27.0-33.4); MEAN CORPUSCULAR HGB CONC 34.3 g/dL (32.0-36.0); MEAN CORPUSCULAR VOLUME 93 fl (80-97); MONOCYTES % (AUTO) 7.1 % (3-13); PLATELET COUNT 165 10^3/uL (150-450); RED BLOOD COUNT 4.66 10^6/uL (4.35-5.55); RED CELL DISTRIBUTION WIDTH 13.2 % (11.5-14.0); SEGMENTED NEUTROPHILS % (AUTO) 59.2 % (42-78); TOTAL CELLS COUNTED % (AUTO) 100 %; WHITE BLOOD COUNT 4.8 10^3/uL (4.0-10.5)
[2020-04-15 08:40] LABS: ALBUMIN 3.8 g/dL (3.5-5.0); ALKALINE PHOSPHATASE 82 U/L (38-126); ANION GAP 8 (5-19); ASPARTATE AMINO TRANSFERASE 45 U/L (17-59); BILIRUBIN,DIRECT 0.3 mg/dL (0.0-0.4); BILIRUBIN,TOTAL 0.3 mg/dL (0.2-1.3); BLOOD UREA NITROGEN 16 mg/dL (7-20); CALCIUM 9.3 mg/dL (8.4-10.2); CARBON DIOXIDE 29 mmol/L (22-30); CHLORIDE 103 mmol/L (98-107); GLUCOSE 173 mg/dL (75-110); POTASSIUM 3.7 mmol/L (3.6-5.0); TOTAL PROTEIN 6.6 g/dL (6.3-8.2)
--- NOTE | 2020-04-15 09:36 | RADIOLOGY REPORT (SQ) ---
EXAM DESCRIPTION: ACUTE ABDOMEN SERIES IMAGES COMPLETED DATE/TIME: 04/15/2020 9:14 am REASON FOR STUDY: abd pain COMPARISON: Chest films 09/30/2018 CT abdomen and pelvis 09/30/2018 NUMBER OF VIEWS: Three views. TECHNIQUE: Frontal chest, supine abdomen and upright/decubitus abdomen radiographic images acquired. LIMITATIONS: None. FINDINGS: CHEST: Lungs clear of infiltrates. Cardiac silhouette size, jax unremarkable. FREE AIR: None. No abnormal gas collections. BOWEL GAS PATTERN: Nonobstructive pattern. No dilated loops or air fluid levels. CALCIFICATIONS: No suspicious calcifications. HARDWARE: Clips right upper quadrant post cholecystectomy SOFT TISSUES: No gross mass or suggestion of organomegaly. BONES: No acute fracture. No worrisome bone lesions. OTHER: No other significant finding. IMPRESSION: NO RADIOGRAPHIC EVIDENCE FOR ACUTE ABDOMINAL DISEASE. TECHNICAL DOCUMENTATION: JOB ID: [id number] 2010 [employer]- All Rights Reserved Reading location - IP/workstation name: [email or web address]
--- NOTE | 2020-04-15 09:50 | EKG REPORT ---
SEVERITY:- ABNORMAL ECG - SINUS RHYTHM PROBABLE INFERIOR INFARCT, OLD ANTERIOR INFARCT, AGE INDETERMINATE : Confirmed by: Elizabeth Davis 15-Apr-2020 09:49:52
[2020-04-15 10:56] LABS: APPEARANCE,URINE CLEAR; BILIRUBIN,URINE NEGATIVE (NEGATIVE); COLOR,URINE YELLOW; GLUCOSE, URINE NEGATIVE (NEGATIVE); KETONES,URINE NEGATIVE (NEGATIVE); LEUKOCYTE ESTERASE,URINE NEGATIVE (NEGATIVE); NITRITE,URINE NEGATIVE (NEGATIVE); PROTEIN,URINE 30 mg/dL (NEGATIVE); URINE SPECIFIC GRAVITY 1.019
--- NOTE | 2020-04-15 11:14 | ER Document Report ---
Entered by MARY STERLING SCRIBE 04/15/20 0844 Acting as scribe for:TYSON ZEPEDA MD ED General - General Chief Complaint: Flank Pain Stated Complaint: ABDOMINAL PAIN Time Seen by Provider: 04/15/20 08:00 Primary Care Provider: HAKEEM DEWITT PA-C [Primary Care Provider] - Follow up as needed Information source: Patient Notes: This 69 year old male patient presents to the emergency department today with complaints of right sided abdominal pain for the last two years. Patient reports that it seems to always be 10 to 15 minutes after eating food, but then goes on to mention that this pain is relieved with sitting still or laying down flat. It seems to be be brought on with movement and not necessarily food after further discussion. He states has mentioned this to his PCP multiple times and they have not really found anything. Patient was asked what is new or different today that brought him into the emergency department for evaluation and he state s he has a dry mouth. TRAVEL OUTSIDE OF THE [place] IN LAST 30 DAYS: No - Related Data Allergies/Adverse Reactions: No Known Allergies Allergy (Verified 09/30/18 18:13) Past Medical History - General Information source: Patient - Social History Smoking Status: Former Smoker - brief history 50 years ago Cigarette use (# per day): No Chew tobacco use (# tins/day): No Frequency of alcohol use: None Drug Abuse: None Lives with: Family Family History: Reviewed & Not Pertinent, DM, Hypertension - Past Medical History Cardiac Medical History: Reports: Hx Congestive Heart Failure, Hx Heart Attack, Hx Hypercholesterolemia, Hx Hypertension Pulmonary Medical History: Reports: Hx COPD Endocrine Medical History: Reports: Hx Diabetes Mellitus Type 2 - IDDM Renal/ Medical History: Reports: Hx Kidney Stones, Hx Renal Insufficiency GI Medical History: Reports: Hx Gastroesophageal Reflux Disease Psychiatric Medical History: Reports: Hx Depression Past Surgical History: Reports: Hx Abdominal Surgery - Ernestina fundoplication, Hx Cardiac Surgery - cardioMEMS implanted, Hx Cholecystectomy, Hx Tonsillectomy, Other - CardioMEMS heart monitor - Immunizations Hx Diphtheria, Pertussis, Tetanus Vaccination: Yes Hx Pneumococcal Vaccination: 06/30/12 Review of Systems - Review of Systems Constitutional: No symptoms reported EENT: See HPI, Other - dry mouth Cardiovascular: No symptoms reported Respiratory: No symptoms reported Gastrointestinal: See HPI, Abdominal pain. denies: Constipation Genitourinary: No symptoms reported Male Genitourinary: No symptoms reported Musculoskeletal: No symptoms reported Skin: No symptoms reported Hematologic/Lymphatic: No symptoms reported Neurological/Psychological: No symptoms reported -: Yes All other systems reviewed and negative Physical Exam - Vital signs Vitals: Resp Pulse Ox 12 99 04/15/20 07:29 04/15/20 07:29 - Notes Notes: Physical Exam: General: Alert, appears well. HEENT: Normocephalic. Atraumatic. PERRL. Extraocular movements intact. Oropharynx clear. Neck: Supple. Non-tender. Respiratory: No respiratory distress. Clear and equal breath sounds bilaterally. Cardiovascular: Regular rate and rhythm. Abdominal: Morbidly . Non-tender. No distension. Normal Bowel Sounds. Back: No gross abnormalities. Extremities: Moves all four extremities. Upper extremities: Normal inspection. Normal ROM. Lower extremities: Normal inspection. No edema. Normal ROM. Neurological: Normal cognition. AAOx4. Normal speech. Psychological: Normal affect. Normal Mood. Skin: Warm. Dry. Normal color. Course - Re-evaluation Re-evalutation: 04/15/20 11:07 Patient resting comfortably not having any abdominal pain at this time. 04/15/20 11:07 Vital signs are stable. - Vital Signs Vital signs: Temp Pulse Resp BP Pulse Ox 98.4 F 16 153/103 H 99 04/15/20 07:34 04/15/20 10:01 04/15/20 10:01 04/15/20 10:01 - Laboratory Result Diagrams: 04/15/20 08:06 04/15/20 08:06 Laboratory results interpreted by me: 04/15/20 04/15/20 08:06 10:32 Creatinine 1.36 H Est GFR (MDRD) Non-Af 52 L Glucose 173 H Urine Protein 30 H Urine Urobilinogen 2.0 H 04/15/20 11:08 Creatinine 1.3 today. Glucose 173 no other acute significant problems. Patient does have urine protein of 30. - Diagnostic Test Radiology reviewed: Image reviewed, Reports reviewed Radiology results interpreted by me: 04/15/20 11:08 Acute Abdomen Series 04/15/20 08:49 IMPRESSION: NO RADIOGRAPHIC EVIDENCE FOR ACUTE ABDOMINAL DISEASE. Acute abdominal series shows no radiographic evidence of anything on the acute abdominal series which includes a chest x-ray abdomen flat and upright. - EKG Interpretation by Me Additional EKG results interpreted by me: 04/15/20 11:09 Twelve-lead EKG shows a normal sinus rhythm rate of 60 first-degree AV block QRS interval and QT interval within normal interval range. Patient has an old inferior infarct with Q waves in 3 and aVF also there is an old age indeterminate anterior infarct with loss of R wave progression until you get V4 there is no acute ST elevation. Patient has a normal axis. Discharge - Discharge Clinical Impression: Abdominal wall pain, Chronic constipation Condition: Stable Disposition: HOME, SELF-CARE Additional Instructions: Constipation Constipation is a common problem. It is especially likely as you get older. Constipation is a common cause of abdominal pain, but sometimes causes no symptoms at all. Causes of constipation include certain medications, dehydration, diets, inactivity, and low-fiber intake. Rarely, it can be a symptom of underlying disease. The physician has evaluated you for this. Avoid constipation by eating a diet high in fiber, fruits, and vegetables. Drink plenty of liquids. Get regular exercise. If possible, avoid constipating medicines like narcotic pain medication. Some vitamin tablets can cause constipation. Stool softeners may be needed for difficult cases. An excellent stool softener is Konsyl which is available at [employer], and [employer]. Just add a teaspoon to a glass of pineapple or orange juice daily or twice a day if needed. Laxatives are useful for occasional constipation. You should use them only when necessary. Too-frequent use can make your bowels dependent on them. Some over the counter laxatives available without prescription are: Milk of Magnesia, 1-2 tablespoons twice a day Dulcolax, 5 mg pill or 10 mg suppository. Citrate of Magnesia, 4-5 ounces a day for a day or two For acute constipation, Fleet's Enemas and Dulcolax suppositories are helpful. Chronic, senior living use of laxatives or enemas is not a good idea. Your bowel may become dependant on them. You do not need to have a bowel movement every day. Many people do fine with a bowel movement every three or four days. You should call your doctor or return for re-evaluation if you pass blood in the stool, or if you develop fever or increasing abdominal pain.Abdominal Pain There are many causes of abdominal pain. Pain can mean a serious problem requiring surgery (such as appendicitis). It can also be an innocent problem that goes away on its own (such as a viral infection). Often, time must pass to determine the cause of pain. The physician does not feel that hospitalization is necessary, at present. Things may change within the next 24 hours. Call the doctor or come back for re- examination if any problems occur, such as: (1) Pain that becomes more severe, steady, or becomes concentrated in one specific area. Also, pain that is more severe with movement or coughing. (2) Vomiting that persists or becomes more frequent. (3) Blood in the vomitus, urine, or bowel movements. Blood in the stool may have a tarry or black appearance. (4) Shaking chills or fever greater than 100 degrees F. (5) The abdomen becomes more distended or swollen. (6) Bowel movements cease. (7) Failure to improve as expected. Recommend that your goal should be to have at least 1 bowel movement on a daily basis. Also if she is continue to have abdominal wall pain I recommend Tylenol [id number] as needed for pain. Referrals: HAKEEM DEWITT PA-C [Primary Care Provider] - Follow up as needed I personally performed the services described in the documentation, reviewed and edited the documentation which was dictated to the scribe in my presence, and it accurately records my words and actions.
[2020-04-15 11:53] VITALS: BP 159/95
== END 2020-04-15 11:43 | disposition home or self-care (01) ==
LOC: ER 07:14
DX: R10.9 Unspecified abdominal pain (principal); K59.09 Other constipation; J44.9 Chronic obstructive pulmonary disease, unspecified; E11.9 Type 2 diabetes mellitus without complications; Z79.4 Long term (current) use of insulin
CPT/HCPCS: 36415; 74022; 80053; 81001; 83690; 85025; 93005; 93010; 99285

== ENCOUNTER 2020-05-13 22:23 | Emergency (ER) | payer OTHER, MEDICARE ==
--- NOTE | 2020-05-13 22:44 | ER Document Report ---
ED Medical Screen (RME) - General Chief Complaint: Abdominal Pain Stated Complaint: ABDOMINAL PAIN Time Seen by Provider: 05/13/20 22:32 Primary Care Provider: HAKEEM DEWITT PA-C [Primary Care Provider] - Follow up as needed Mode of Arrival: Wheelchair Information source: Patient Notes: HPI; 70-year-old male brought to the emergency room by EMS complaining of worse alpesh abdominal pain that he states had for the past 2 weeks. States the pain is mostly on his left upper side of his abdomen. Describes it as a "shantel type of pain" states is intermittent. States he was discharged yesterday from [facility] but has not picked up the medications that they discharged him home with. States he was here a week ago when actually he was here April 15. States he had a negative work-up on the and was discharged home. States the pain is gotten more severe today. He denies any nausea, vomiting, no fevers, no urinary symptoms. Taking Tylenol without relief. PE: Alert and oriented x3. Mild distress noted. Lungs: Clear to auscultation without rales, rhonchi, wheezes. Heart: Regular rate rhythm without murmurs, rubs, gallops. I have greeted and performed a rapid initial assessment of this patient. A comprehensive ED assessment and evaluation of the patient, analysis of test results and completion of the medical decision making process will be conducted by additional ED providers. I have specifically instructed the patient or family members with the patient to immediately return to any nursing staff should anything change in the patient's condition or with their chief complaint. TRAVEL OUTSIDE OF THE [place] IN LAST 30 DAYS: No - Related Data Allergies/Adverse Reactions: No Known Allergies Allergy (Verified 09/30/18 18:13) Past Medical History - Past Medical History Cardiac Medical History: Reports: Hx Congestive Heart Failure, Hx Heart Attack, Hx Hypercholesterolemia, Hx Hypertension Pulmonary Medical History: Reports: Hx COPD Endocrine Medical History: Reports: Hx Diabetes Mellitus Type 2 - IDDM Renal/ Medical History: Reports: Hx Kidney Stones, Hx Renal Insufficiency. Denies: Hx Peritoneal Dialysis GI Medical History: Reports: Hx Gastroesophageal Reflux Disease Psychiatric Medical History: Reports: Hx Depression Past Surgical History: Reports: Hx Abdominal Surgery - Ernestina fundoplication, Hx Cardiac Surgery - cardioMEMS implanted, Hx Cholecystectomy, Hx Tonsillectomy, Other - CardioMEMS heart monitor - Immunizations Hx Diphtheria, Pertussis, Tetanus Vaccination: Yes Physical Exam - Vital signs Vitals: Temp Pulse Resp BP Pulse Ox 97.8 F 62 16 134/80 H 98 05/13/20 22:35 05/13/20 22:35 05/13/20 22:35 05/13/20 22:35 05/13/20 22:35 Course - Vital Signs Vital signs: Temp Pulse Resp BP Pulse Ox 97.8 F 62 16 134/80 H 98 05/13/20 22:35 05/13/20 22:35 05/13/20 22:35 05/13/20 22:35 05/13/20 22:35 Doctor's Discharge - Discharge Referrals: HAKEEM DEWITT PA-C [Primary Care Provider] - Follow up as needed
--- NOTE | 2020-05-13 23:18 | ER Document Report ---
ED General - General Chief Complaint: Abdominal Pain Stated Complaint: ABDOMINAL PAIN Time Seen by Provider: 05/13/20 22:32 Primary Care Provider: HAKEEM DEWITT PA-C [Primary Care Provider] - Follow up as needed Mode of Arrival: Wheelchair Notes: Patient is a 70-year-old male who comes emergency department for chief complaint of sharp waves of abdominal pain in the mid to upper abdomen on both sides. He states he has been having this for about 2 weeks. He states that it feels like his abdomen "contracts" and the pain gets severe intermittently. He is still having bowel movements, nonbloody and unremarkable, he is unable to vomit with a history of using public occasion, he has had a cholecystectomy. He states he was admitted for 2 days at [facility] for the pain and he was sent home with instructions to have a liquid diet and take pain medication, he states he has not not been able to fill the pain medication. He states he had an endoscopy as well and was told that there was no concerning finding. He states after he went home the pain actually got more severe prompting him to come to the emergency department. He states he has been taking Tylenol for pain without relief. Patient also has a past medical history of CAD, [place], hypertension, hyperlipidemia, CHF, type 2 diabetes, GERD. TRAVEL OUTSIDE OF THE [place] IN LAST 30 DAYS: No - Related Data Allergies/Adverse Reactions: No Known Allergies Allergy (Verified 09/30/18 18:13) Past Medical History - General Information source: Patient - Social History Smoking Status: Never Smoker Frequency of alcohol use: None Drug Abuse: None Lives with: Family Family History: Reviewed & Not Pertinent, DM, Hypertension Patient has homicidal ideation: No - Past Medical History Cardiac Medical History: Reports: Hx Congestive Heart Failure, Hx Heart Attack, Hx Hypercholesterolemia, Hx Hypertension Pulmonary Medical History: Reports: Hx COPD Endocrine Medical History: Reports: Hx Diabetes Mellitus Type 2 - IDDM Renal/ Medical History: Reports: Hx Kidney Stones, Hx Renal Insufficiency. Denies: Hx Peritoneal Dialysis GI Medical History: Reports: Hx Gastroesophageal Reflux Disease Psychiatric Medical History: Reports: Hx Depression Past Surgical History: Reports: Hx Abdominal Surgery - Ernestina fundoplication, Hx Cardiac Surgery - cardioMEMS implanted, Hx Cholecystectomy, Hx Tonsillectomy, Other - CardioMEMS heart monitor - Immunizations Hx Diphtheria, Pertussis, Tetanus Vaccination: Yes Hx Pneumococcal Vaccination: 06/30/12 Review of Systems - Review of Systems Constitutional: No symptoms reported EENT: No symptoms reported Cardiovascular: No symptoms reported Respiratory: No symptoms reported Gastrointestinal: See HPI Genitourinary: No symptoms reported Male Genitourinary: No symptoms reported Musculoskeletal: No symptoms reported Skin: No symptoms reported Hematologic/Lymphatic: No symptoms reported Neurological/Psychological: No symptoms reported Physical Exam - Vital signs Vitals: Temp Pulse Resp BP Pulse Ox 97.8 F 62 16 134/80 H 98 05/13/20 22:35 05/13/20 22:35 05/13/20 22:35 05/13/20 22:35 05/13/20 22:35 - Notes Notes: GENERAL: Alert, interacts well. Intermittently appears to be in pain but there is no severe distress HEAD: Normocephalic, atraumatic. EYES: Pupils equal, round, and reactive to light. Extraocular movements intact. ENT: Oral mucosa moist, tongue midline. Oropharynx unremarkable. Airway patent. NECK: Full range of motion. Supple. Trachea midline. No lymphadenopathy. LUNGS: Clear to auscultation bilaterally, no wheezes, rales, or rhonchi. No respiratory distress. Non-tender chest wall. HEART: Regular rate and rhythm. No murmur ABDOMEN: Abdomen is questionably minimally distended. There is mid to epigastric abdominal tenderness on palpation but this is generalized and not severe. No guarding. No rigidity. No rebound tenderness. Bowel sounds are quiet but present. EXTREMITIES: Moves all 4 extremities spontaneously. No edema, normal radial and dorsalis pedis pulses bilaterally. No cyanosis. BACK: no cervical, thoracic, lumbar midline tenderness. No saddle anesthesia, normal distal neurovascular exam. Moves all extremities in full range of motion. NEUROLOGICAL: Alert and oriented x3. Normal speech. Cranial nerves II through XII grossly intact. Strength 5/5 in all extremities. PSYCH: Normal affect, normal mood. SKIN: Warm, dry, normal turgor. No rashes or lesions noted. Course - Re-evaluation Re-evalutation: Patient occasionally appears uncomfortable and grabs at his abdomen. However this is intermittent and otherwise he appears comfortable. He does have mid to upper abdominal tenderness but this is nonspecific without guarding. CBC unremarkable, chemistry unremarkable except borderline creatinine of 1.5, troponin not elevated, lipase not elevated. Chest x-ray without acute findings. Because of patient's ongoing symptoms, age, surgical history, intermittent discomfort with grabbing of the abdomen I discussed with patient and decision was made to perform CT with oral contrast to rule out acute etiology of the pain. Patient tolerated the oral contrast well, after he was medicated for pain patient did not have recurrence of pain, patient was walking around the room well-appearing when I reevaluated him. CT with no acute process. Patient states he feels great now and he was to go home. Based on his evaluation, reevaluation, work-up I do have low suspicion of acute abdomen. Patient does have follow-up scheduled. Patient will be provided with Carafate along with his current medications, provided him with a Slaughter Dosepak to go home with, he has the rest of his prescriptions waiting. I discussed details and return precautions at length. Patient states appreciation and agreement. Stable and well-appearing at time of discharge. - Vital Signs Vital signs: Temp Pulse Resp BP Pulse Ox 98.0 F 60 20 134/88 H 99 05/14/20 04:09 05/14/20 04:09 05/14/20 04:09 05/14/20 04:09 05/14/20 04:09 - Laboratory Result Diagrams: 05/13/20 22:50 05/13/20 22:50 Laboratory results interpreted by me: 05/13/20 05/13/20 05/14/20 22:50 22:50 01:40 Eos % (Auto) 6.7 H Carbon Dioxide 32 H Creatinine 1.50 H Est GFR ( Amer) 56 L Est GFR (MDRD) Non-Af 46 L Urine Protein 30 H - EKG Interpretation by Me Additional EKG results interpreted by me: EKG shows sinus rhythm at a rate of 60, QTc 468, left axis deviation. PVCs noted. First-degree AV block with FL interval of 222. No overt T wave inversions or ST segment changes in consecutive leads, some artifact is present. Discharge - Discharge Clinical Impression: Abdominal pain Qualifiers: Abdominal location: generalized Qualified Code(s): R10.84 - Generalized abdominal pain Condition: Stable Disposition: HOME, SELF-CARE Instructions: Oral Narcotic Medication ([facility]) Additional Instructions: Your laboratory work-up, evaluation, and imaging do not show any obvious or concerning findings. I recommend a bland diet, the Carafate, and close follow-up with your provider for additional management. Return if you worsen including severe worsening pain, fever, or any other concerning or worsening symptoms. Prescriptions: Sucralfate [Carafate 1 gm Tablet] 1 gm PO QID #20 tablet Referrals: HAKEEM DEWITT PA-C [Primary Care Provider] - Follow up as needed
[2020-05-13 23:26] LABS: ABSOLUTE EOSINOPHILS # (AUTO) 0.3 10^3/uL (0.0-0.6); ABSOLUTE LYMPHOCYTES (AUTO) 2.1 10^3/uL (0.5-4.7); ABSOLUTE MONOCYTES (AUTO) 0.4 10^3/uL (0.1-1.4); ABSOLUTE NEUT (AUTO) 2.1 10^3/uL (1.7-8.2); BASOPHILS % (AUTO) 0.9 % (0-2); EOSINOPHILS % (AUTO) 6.7 % (0-6); HEMATOCRIT 42.5 % (37.9-51.0); LYMPHOCYTES % (AUTO) 41.9 % (13-45); MEAN CORPUSCULAR HEMOGLOBIN 32.8 pg (27.0-33.4); MEAN CORPUSCULAR HGB CONC 35.2 g/dL (32.0-36.0); MEAN CORPUSCULAR VOLUME 93 fl (80-97); PLATELET COUNT 194 10^3/uL (150-450); RED BLOOD COUNT 4.57 10^6/uL (4.35-5.55); RED CELL DISTRIBUTION WIDTH 13.4 % (11.5-14.0); SEGMENTED NEUTROPHILS % (AUTO) 42.5 % (42-78); TOTAL CELLS COUNTED % (AUTO) 100 %; WHITE BLOOD COUNT 4.9 10^3/uL (4.0-10.5)
[2020-05-13] MEDS ORDERED: MORPHINE SULFATE 10 MG/ML INJ IV ONE (23:31)
[2020-05-13] MEDS ORDERED: NORMAL SALINE 500 ML IV ONE (23:32)
[2020-05-13] MEDS ORDERED: ONDANSETRON HCL INJ/PF 4 MG/2 ML SDV IV ONE (23:32)
[2020-05-13 23:45] LABS: ALBUMIN 4.1 g/dL (3.5-5.0); ALKALINE PHOSPHATASE 77 U/L (38-126); ANION GAP 9 (5-19); ASPARTATE AMINO TRANSFERASE 46 U/L (17-59); BILIRUBIN,DIRECT 0.1 mg/dL (0.0-0.4); BILIRUBIN,TOTAL 0.4 mg/dL (0.2-1.3); BLOOD UREA NITROGEN 12 mg/dL (7-20); CALCIUM 9.7 mg/dL (8.4-10.2); CARBON DIOXIDE 32 mmol/L (22-30); CHLORIDE 101 mmol/L (98-107); GLUCOSE 104 mg/dL (75-110); POTASSIUM 4.7 mmol/L (3.6-5.0); TOTAL PROTEIN 7.1 g/dL (6.3-8.2)
--- NOTE | 2020-05-14 00:49 | RADIOLOGY REPORT (SQ) ---
CLINICAL HISTORY: sharp mid/upper abd pain, abd swelling COMPARISON: 09/01/2018. 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 Lungs are clear without consolidation, atelectasis, mass or edema. There is no pleural effusion. There is no pneumothorax. There are no acute osseous findings. IMPRESSION: Clear lungs.
[2020-05-14 02:07] LABS: APPEARANCE,URINE CLEAR; BILIRUBIN,URINE NEGATIVE (NEGATIVE); COLOR,URINE YELLOW; GLUCOSE, URINE NEGATIVE (NEGATIVE); KETONES,URINE NEGATIVE (NEGATIVE); LEUKOCYTE ESTERASE,URINE NEGATIVE (NEGATIVE); NITRITE,URINE NEGATIVE (NEGATIVE); PROTEIN,URINE 30 mg/dL (NEGATIVE); URINE SPECIFIC GRAVITY 1.013; UROBILINOGEN,URINE NEGATIVE mg/dL (<2.0)
--- NOTE | 2020-05-14 02:50 | RADIOLOGY REPORT (SQ) ---
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 COMPARISON: CT of abdomen and pelvis from 09/30/2018 TECHNIQUE: Axial contiguous images were obtained from the lung bases to the proximal femurs with intravenous intravenous contrast administered. Oral contrast was also given to the patient. Sagittal and coronal reconstructions were also obtained and reviewed. This exam was performed according to our departmental dose-optimization program, which includes automated exposure control, adjustment of the mA and/or KV according to the patient's size and/or use of iterative reconstruction technique. FINDINGS: There are bibasilar airspace opacities present. No discrete pleural effusions are seen. The cardiac silhouette is enlarged. There is a small hiatal hernia. There is oral contrast seen within the hiatal hernia. The visualized hepatic parenchyma is diffusely low in attenuation. No focal enhancing lesion is seen. The gallbladder is surgically absent. The spleen is normal in size. The pancreas is unremarkable. The bilateral adrenal glands appear unremarkable. Both kidneys demonstrate no evidence of hydronephrosis. There is a punctate calcification at the inferior pole the left kidney which may be vascular. There are tiny hypodensities within the kidneys which are mostly too small adequately characterize The urinary bladder is mildly distended, and appears grossly unremarkable. No bladder calculi are seen. There is fat seen within the bilateral inguinal canals. The stomach is not well distended. The small bowel loops appear unremarkable. No pericolonic inflammatory stranding is seen. There is no evidence of pneumoperitoneum or free fluid. The aorta and IVC appear normal in size. No significantly enlarged lymph nodes are seen in the abdomen or pelvis. Review of the bone show no evidence of any suspicious lytic or blastic lesions. IMPRESSION: No acute process is seen within the abdomen or pelvis. Hepatic steatosis
[2020-05-14] MEDS ORDERED: HYDROCODONE/ACETAMINOPHEN 5-325 MG (6 TAB/ER DISP) PO PRN (03:41)
[2020-05-14 04:13] VITALS: BP 134/88
--- NOTE | 2020-05-14 09:00 | EKG REPORT ---
SEVERITY:- ABNORMAL ECG - SINUS RHYTHM VENTRICULAR PREMATURE COMPLEX FIRST DEGREE AV BLOCK NONSPECIFIC INTRAVENTRICULAR CONDUCTION DELAY LOW VOLTAGE IN FRONTAL LEADS : Confirmed by: Elizabeth Davis 14-May-2020 09:00:21
== END 2020-05-14 04:25 | disposition home or self-care (01) ==
LOC: ER 22:23
DX: R10.84 Generalized abdominal pain (principal); R10.10 Upper abdominal pain, unspecified; I25.10 Atherosclerotic heart disease of native coronary artery without angina pectoris; I25.2 Old myocardial infarction; E78.5 Hyperlipidemia, unspecified; I50.9 Heart failure, unspecified; I11.0 Hypertensive heart disease with heart failure; E11.9 Type 2 diabetes mellitus without complications; K21.9 Gastro-esophageal reflux disease without esophagitis; J44.9 Chronic obstructive pulmonary disease, unspecified
CPT/HCPCS: 93005; 99285; 96361; 96374; 96375; 36415; 83690; 85025; 80053; 81001; 84484; 71045; 74177; 93010; J2270; J2405; J7040